=== PATIENT | male | born 1975 | race Caucasian/White ===

== ENCOUNTER 2018-05-31 19:18 | Emergency (ER) | payer OTHER, SELFPAY ==
[2018-05-31] VITALS (7 sets, daily range): BP systolic 114–138; BP diastolic 64–93; PULSE 63–77; RESP 13–24; O2SAT 95–100
--- NOTE | 2018-05-31 19:23 | DI.RAD.S_ITS ---
PROCEDURE: XR CHEST 1V INDICATIONS: chest pain TECHNIQUE: One view of the chest was acquired. COMPARISON: Located Within [facility], , CHEST 2 VIEW, 10/13/2015, 18:49. FINDINGS: Surgical changes and devices: None. Lungs and pleura: No pleural effusions or pneumothorax. There are slightly low lung volumes with linear bibasilar opacities likely representing atelectasis. Mediastinum: Mediastinal contours appear mildly prominent likely due to low volumes. Heart size is normal. Bones and chest wall: No suspicious bony lesions. Overlying soft tissues appear unremarkable. IMPRESSION: 1. Low lung volumes with probable basilar atelectasis and vascular crowding. No definite acute cardiopulmonary disease. Dictated by: Camron Augustine M.D. on 05/31/2018 at 19:52 Approved by: Camron Augustine M.D. on 05/31/2018 at 19:56
[2018-05-31] MEDS: ASPIRIN 81 MG TAB 324 MG PO (19:32)
--- NOTE | 2018-05-31 19:35 | ED.CHESTPAIN ---
HPI - Chest Pain General Chief Complaint: Chest Pain Stated Complaint: chest pain/tightness Time Seen by Provider: 05/31/18 19:20 Source: patient and family Mode of arrival: ambulatory Limitations: no limitations History of Present Illness HPI narrative: 42-year-old nonsmoking male presents with family and the chief complaint of a few weeks right-sided chest and abdominal pain. He denies any provocation or palliation of his symptoms and states they are episodic. He denies any nausea, vomiting or diarrhea. He denies any dizziness, weakness or lightheadedness but does state he has become fatigued over the past few weeks. He denies any change in his appetite or trouble with nausea, vomiting, or diarrhea. He denies recent travel, use of alcohol, or tylenol complaint: chest pain Onset (ago): week(s) Duration: intermittent Pain location: right chest Severity: mild Quality: sharp Pain radiation: none Relieving factors: nothing Exacerbating factors: nothing Treatments prior to arrival chest pain: none Related Data Allergies Allergy/AdvReac Type Severity Reaction Status Date / Time No Known Drug Allergies Allergy Verified 05/31/18 19:27 Review of Systems Review of Systems All systems reviewed & are unremarkable except as noted in HPI and below Constitutional Denies chills, Denies fever(s), Denies lethargy and Denies weakness Eyes Denies change in vision, Denies eye discharge, Denies irritation and Denies loss of vision ENT Ears, Nose, Mouth, and Throat: Denies change in voice, Denies neck pain and Denies sore throat Cardiovascular Reports chest pain, Denies irregular heart rhythm, Denies lightheadedness, Denies palpitations, Denies dyspnea, Denies dyspnea on exertion and Denies orthopnea Respiratory Denies cough, Denies dyspnea, Denies dyspnea on exertion and Denies wheezing Gastrointestinal Gastrointestinal: Reports abdominal pain, Denies change in bowel habits, Denies diarrhea, Denies nausea and Denies vomiting Genitourinary Denies hematuria, Denies flank pain, Denies urinary incontinence and Denies urinary urgency Musculoskeletal Denies neck pain Integumentary/Breasts Denies pruritus, Denies erythema, Denies rash and Denies wounds Neurologic Denies confusion, Denies loss of vision and Denies weakness Psychiatric Denies anxiety, Denies confusion, Denies depression, Denies homicidal ideation and Denies suicidal ideation Endocrine Denies palpitations Hematologic/Lymphatic Denies easy bruising Allergic/Immunologic Denies wheezing PFSH Social History Smoking Status: Never smoker alcohol intake: never Exam Narrative Exam Narrative: 42-year-old male resting comfo Initial Vital Signs Initial Vital Signs: Vital Signs Pulse Rate 71 05/31/18 19:27 Respiratory Rate 18 05/31/18 19:27 Blood Pressure 138/93 H 05/31/18 19:27 Pulse Oximetry 95 05/31/18 19:27 Const General: cooperative, well developed, in distress and anxious Nutritional Appearance: well nourished Orientation: alert, awake, oriented x3 and not confused [facility] Head: normocephalic and atraumatic Ears: external ears normal and TM's normal bilaterally Nose: external nose normal and No nasal discharge Face and sinus: sinuses nontender, face symmetric, no sinus tenderness and No dry mucous membranes Mouth: oral mucosae normal and moist mucous membranes Teeth and gingiva: dentition normal Throat: tonsils normal and uvula midline Eyes General: appearance normal, both eyes and all related structures Eyelids: eyelids normal Pupils: PERRL EOM: EOM intact bilaterally Neck Neck: normal visual inspection, trachea midline, No lymphadenopathy, No midline deformity and No JVD Lymphatic: No lymphedema Chest Chest: normal inspection of the chest Resp Effort & Inspection: normal respiratory effort, able to speak in complete sentences, no respiratory distress and no use of accessory muscles Auscultation: clear to auscultation bilaterally, no rales, no rhonchi and no wheezes Cardio Rate: regular rate Rhythm: regular rhythm Heart Sounds: no click, no gallops, no murmurs and no rubs Pulses: normal peripheral pulses GI Inspection: non-distended Palpation: soft, no hepatosplenomegaly, No guarding, No pulsatile mass and No tender Auscultation: normal bowel sounds Back/Spine/Pelvis Back: No CVA tenderness Cervical Spine: cervical ROM normal and No pain with cervical ROM Thoracic/Lumbar Spine: thoracic and lumbar spine normal to inspection Skin General: no rashes or lesions noted, No jaundice and No petechiae Extrem General: full ROM, no clubbing, cyanosis or edema, no pedal edema and no calf tenderness Scores HEART Score Heart Score history: Slightly Suspicious Heart Score EKG: Normal Heart Score Age: < 45 years old Heart Score risk factors: No known risk factors Heart Score troponin: < or = to normal limit Heart Score Total: 0 PERC Score Age greater than or equal to 50 years: No Heart rate greater than or equal to 100 bpm: No Room Air O2 Sat less than 95%: No Unilateral leg swelling: No Recent trauma or surgery: No Hemoptysis: No Prior PE or DVT: No Hormone Use: No Total PERC Score: 0 Wells' Criteria for PE Clinical signs and symptoms of PE: No PE is #1 Dx or equally likely: No Heart rate > 100: No Immobilization at least 3 days or surg in previous 4 weeks: No History of PE or DVT: No Hemoptysis: No Malignancy w/Treatment within 6 months or palliative: No Wells' PE Score total: 0 Course Orders Ordered: ED Orders 05/31/18 19:23 XR chest 1V Stat 05/31/18 19:25 Complete Blood Count AUTO DIFF Stat Comprehensive Metabolic Panel Stat Lipase Stat Partial Thromboplastin Time Stat Prothrombin Time INR Stat Troponin & CK Cardiac Panel Stat 05/31/18 19:29 EKG-12 Lead Stat 05/31/18 19:56 US abdomen complete Stat Discontinued Medications Aspirin (Aspirin Chew) 324 mg PO NOW ONE Stop: 05/31/18 19:24 Last Admin: 05/31/18 19:32 Dose: 324 mg Vital Signs - 8 hr 05/31/18 19:27 05/31/18 19:44 05/31/18 19:47 Pulse Rate 71 73 70 Respiratory Rate 18 13 21 Blood Pressure 138/93 H Blood Pressure [Left Arm] 130/93 H 130/93 H Pulse Oximetry 95 98 99 05/31/18 20:30 05/31/18 21:01 05/31/18 21:45 Pulse Rate 63 64 67 Respiratory Rate 14 21 19 Blood Pressure Blood Pressure [Left Arm] 132/82 114/77 116/83 Pulse Oximetry 98 98 95 05/31/18 22:24 Pulse Rate 77 Respiratory Rate 24 Blood Pressure Blood Pressure [Left Arm] 115/64 Pulse Oximetry 100 MDM - Chest Pain Differential Diagnosis Likely stable angina, unstable angina pectoris, atypical chest pain, st elevation myocardial infarction, costochondritis, chest pain and biliary colic Lab Data Attestation: I reviewed the patient's lab results. Result diagrams: 05/31/18 19:25 05/31/18 19:25 Lab Results 11/19/18 11/19/18 11/19/18 Range/Units 19:25 19:25 19:25 WBC 6.2 (4.5-11.0) X10^3/uL RBC 4.91 (4.5-5.9) X10^6/uL Hgb 14.7 (13.5-17.5) g/dL Hct 43.2 (41-53) % MCV 87.9 (80-100) fL MCH 30.0 (26-34) PG MCHC 34.1 (30-36) % RDW 15.0 H (11.6-14.8) % Plt Count 294 (150-400) X10^3/uL Neut % (Auto) 38.8 L (50-75) % Lymph % (Auto) 48.2 H (25-40) % [place] % (Auto) 9.2 (3-14) % Eos % (Auto) 2.9 (2-4) % Baso % (Auto) 0.9 (0-2) % Neut # (Auto) 2400 L (6049-5791) /uL PT 10.6 (10.1-12.7) SECONDS INR 1.0 (0.9-1.3) APTT 29 (26.4-36.2) SECONDS Sodium 146 H (137-145) mmol/L Potassium 4.3 (3.4-5.1) mmol/L Chloride 105 (98-107) mmol/L Carbon Dioxide 29 (22-32) mmol/L BUN 16 (9-20) mg/dL Creatinine 0.80 (0.66-1.25) mg/dL Estimated GFR > 60.0 (>60) mL/min BUN/Creatinine Ratio 20.0 (6-22) Glucose 100 (70-100) mg/dL Calcium 8.9 (8.4-10.2) mg/dL Total Bilirubin 0.5 (0.2-1.3) mg/dL AST 74 H (17-59) IU/L ALT 109 H (21-72) IU/L Alkaline Phosphatase 80 (38-126) U/L Total Creatine Kinase 122 (55-170) U/L CK-MB (CK-2) 1.13 (<2.37) ng/mL CK-MB (CK-2) Rel Index 0.9 L (1.5-5.0) % Troponin I < 0.012 (0.01-0.034) ng/mL Total Protein 7.3 (6.3-8.2) g/dL Albumin 4.4 (3.5-5.0) g/dL Globulin 2.9 (1.7-4.1) g/dL Albumin/Globulin Ratio 1.5 (1.0-2.8) Lipase 64 (23-300) U/L Urine Dip Bedside Urine Glucose Negative Bedside Urine Bilirubin - Negative Bedside Urine Ketone - Negative Bedside Urine Occult Blood - Negative Bedside Urine pH 6 Bedside Urine Protein - Negative Bedside Urine Urobilinogen +/- 1mg Bedside Urine Nitrite - Negative Bedside Urine Leukocytes - Negative Esterase Imaging Data Chest x-ray: Radiologist's impression: [address] [address] XRay Report Signed Patient: Luiz Greene#: [id number] : 1975Acct:[id number] Age/Sex: 42 / MDate of Service: 05/31/18 Loc: ED Accession Number: [id number] Procedure: XR chest 1V Ordering Provider: Jimbo Gastelum D.O. PROCEDURE: XR CHEST 1V INDICATIONS: chest pain TECHNIQUE: One view of the chest was acquired. COMPARISON: [facility], , CHEST 2 VIEW, 10/13/2015, 18:49. FINDINGS: Surgical changes and devices: None. Lungs and pleura: No pleural effusions or pneumothorax. There are slightly low lung volumes with linear bibasilar opacities likely representing atelectasis. Mediastinum: Mediastinal contours appear mildly prominent likely due to low volumes. Heart size is normal. Bones and chest wall: No suspicious bony lesions. Overlying soft tissues appear unremarkable. IMPRESSION: 1. Low lung volumes with probable basilar atelectasis and vascular crowding. No definite acute cardiopulmonary disease. Dictated by: Camron Augustine M.D. on 05/31/2018 at 19:52 US - abdomen: Radiologist's impression: [address] [address] Ultrasound Report Signed Patient: Luiz Greene#: [id number] : 1975Acct:[id number] Age/Sex: 42 / MDate of Service: 05/31/18 Loc: ED Accession Number: [id number] Procedure: US abdomen complete Ordering Provider: Jimbo Gastelum D.O. PROCEDURE: US ABDOMEN COMPLETE INDICATIONS: RIGHT UPPER QUADRANT PAIN; ELEVATED ENZYMES TECHNIQUE: Real-time scanning was performed of the abdominal and retroperitoneal organs, with image documentation. COMPARISON: [facility], CT, CT KUB, 02/06/2017, 15:11. FINDINGS: Liver: Liver demonstrates increased hepatic echogenicity consistent with fatty infiltration limiting evaluation for focal lesions. Gallbladder: No gallstones, gallbladder wall thickening, or pericholecystic fluid. Biliary ducts: Intrahepatic bile ducts are non-dilated. Extrahepatic bile duct caliber measures up to 5 mm. Normal is 6-7 mm or less in diameter, or 10 mm or less post-cholecystectomy. Pancreas: Not well-seen. Spleen: Spleen is normal in size and homogeneous in echotexture. Kidneys: Right kidney measures 10.7 cm long; left kidney measures 11.1 cm long. No hydronephrosis. Aorta: Visualized aorta is normal in caliber at less than 3 cm. Iliacs: Proximal common iliac arteries are normal in caliber at less than 2.5 cm. IVC: Intrahepatic inferior vena cava is patent. Miscellaneous: No free abdominal fluid. IMPRESSION: 1. Increased hepatic echogenicity compatible with steatosis. Dictated by: Camron Augustine M.D. on 05/31/2018 at 21:39 Approved by: Camron Augustine M.D. on 05/31/2018 at 21:51 MDM Narrative Medical decision making narrative: 42-year-old male with normal EKG and troponin as well as a nonischemic story presents with right-sided pain. His pain has no provocation, palliation or radiation. Mild bump in liver enzymes and some change ultrasound raise suspicion for liver as the etiology. Discharge Plan Departure Patient Disposition: Home Clinical Impression: Elevated transaminase level Discharge Date/Time: 05/31/18 22:59 Interventions: ED Discharge Assessment Last Done: 05/31/18 22:59 Instructions: Nonalcoholic Fatty Liver Disease Activity Restrictions/Additional Instructions: *You have been diagnosed with [ elevated liver enzymes, right upper quadrant pain] *What to do: *Continue to take medications as directed *Follow up with your primary care provider in 2-3 days, call for an appointment. Let them know you were seen in the Emergency Department and that we ask that you be seen in follow up *Return to ER if you should have any new, worsening or concerning symptoms
--- NOTE | 2018-05-31 19:42 | PC.NURSE ---
pt reports seeing his PCP a couple days ago and reports elevated liver enzymes. Pt stated he is frequently short of breath latley and not able to do his normal activities without dyspnea. pt reports ruq pain or tightness that is not reproducable. he states he went to his PCP for Kidney stone pain. He also states he has ongoing stiff painful neck. lymphnodes behind neck and under chin palpable. Pt reports having anxiety that exacerbates in stressfull situations causing a stutter. Pt currently presenting with a stutter.
[2018-05-31 19:47] LABS: Add Manual Diff / Slide Review NO; Basophils Percent Auto 0.9 % (0-2); Eosinophils Percent Auto 2.9 % (2-4); Hematocrit 43.2 % (41-53); Hemoglobin 14.7 g/dL (13.5-17.5); Lymphocytes Percent Auto 48.2 % (25-40); Mean Corpuscular HGB Conc 34.1 % (30-36); Mean Corpuscular Volume 87.9 fL (80-100); Monocytes Percent Auto 9.2 % (3-14); Neutrophils Absolute Auto 2400 /uL (3000-5900); Neutrophils Percent Auto 38.8 % (50-75); Platelet Count 294 X10^3/uL (150-400); Red Blood Cell Count 4.91 X10^6/uL (4.5-5.9); White Blood Cell Count 6.2 X10^3/uL (4.5-11.0)
[2018-05-31 19:50] LABS: Prothrombin Time 10.6 SECONDS (10.1-12.7)
[2018-05-31 19:52] LABS: PTT Partial Thromboplastin Tim 29 SECONDS (26.4-36.2)
[2018-05-31 19:53] LABS: Alanine Aminotransferase 109 IU/L (21-72); Albumin 4.4 g/dL (3.5-5.0); Albumin Globulin Ratio 1.5 (1.0-2.8); Alkaline Phosphatase 80 U/L (38-126); Aspartate Aminotransferase 74 IU/L (17-59); Bilirubin Total 0.5 mg/dL (0.2-1.3); Blood Urea Nitrogen 16 mg/dL (9-20); Calcium 8.9 mg/dL (8.4-10.2); Carbon Dioxide 29 mmol/L (22-32); Chloride 105 mmol/L (98-107); Creatine Kinase 122 U/L (55-170); Estimated Glomerular Filt Rate > 60.0 mL/min (>60); Globulin 2.9 g/dL (1.7-4.1); Glucose 100 mg/dL (70-100); HEMOLYSIS 50 (0-50); Lipase 64 U/L (23-300); Potassium 4.3 mmol/L (3.4-5.1); Sodium 146 mmol/L (137-145); Total Protein 7.3 g/dL (6.3-8.2)
--- NOTE | 2018-05-31 19:56 | DI.US.S_ITS ---
PROCEDURE: US ABDOMEN COMPLETE INDICATIONS: RIGHT UPPER QUADRANT PAIN; ELEVATED ENZYMES TECHNIQUE: Real-time scanning was performed of the abdominal and retroperitoneal organs, with image documentation. COMPARISON: [facility], CT, CT KUB, 02/06/2017, 15:11. FINDINGS: Liver: Liver demonstrates increased hepatic echogenicity consistent with fatty infiltration limiting evaluation for focal lesions. Gallbladder: No gallstones, gallbladder wall thickening, or pericholecystic fluid. Biliary ducts: Intrahepatic bile ducts are non-dilated. Extrahepatic bile duct caliber measures up to 5 mm. Normal is 6-7 mm or less in diameter, or 10 mm or less post-cholecystectomy. Pancreas: Not well-seen. Spleen: Spleen is normal in size and homogeneous in echotexture. Kidneys: Right kidney measures 10.7 cm long; left kidney measures 11.1 cm long. No hydronephrosis. Aorta: Visualized aorta is normal in caliber at less than 3 cm. Iliacs: Proximal common iliac arteries are normal in caliber at less than 2.5 cm. IVC: Intrahepatic inferior vena cava is patent. Miscellaneous: No free abdominal fluid. IMPRESSION: 1. Increased hepatic echogenicity compatible with steatosis. Dictated by: Camron Augustine M.D. on 05/31/2018 at 21:39 Approved by: Camron Augustine M.D. on 05/31/2018 at 21:51
[2018-05-31 20:05] LABS: Troponin I < 0.012 ng/mL (0.01-0.034)
[2018-05-31 20:20] LABS: CKMB % Relative Index 0.9 % (1.5-5.0); Creatine Kinase MB 1.13 ng/mL (<2.37)
--- NOTE | 2018-06-01 01:26 | ED_ITS ---
HPI - Chest Pain General Chief Complaint: Chest Pain Stated Complaint: chest pain/tightness Time Seen by Provider: 05/31/18 19:20 Source: patient and family Mode of arrival: ambulatory Limitations: no limitations History of Present Illness HPI narrative: 42-year-old nonsmoking male presents with family and the chief complaint of a few weeks right-sided chest and abdominal pain. He denies any provocation or palliation of his symptoms and states they are episodic. He denies any nausea, vomiting or diarrhea. He denies any dizziness, weakness or lightheadedness but does state he has become fatigued over the past few weeks. He denies any change in his appetite or trouble with nausea, vomiting, or diarrhea. He denies recent travel, use of alcohol, or tylenol complaint: chest pain Onset (ago): week(s) Duration: intermittent Pain location: right chest Severity: mild Quality: sharp Pain radiation: none Relieving factors: nothing Exacerbating factors: nothing Treatments prior to arrival chest pain: none Related Data Allergies Allergy/AdvReac Type Severity Reaction Status Date / Time No Known Drug Allergies Allergy Verified 05/31/18 19:27 Review of Systems Review of Systems All systems reviewed & are unremarkable except as noted in HPI and below Constitutional Denies chills, Denies fever(s), Denies lethargy and Denies weakness Eyes Denies change in vision, Denies eye discharge, Denies irritation and Denies loss of vision ENT Ears, Nose, Mouth, and Throat: Denies change in voice, Denies neck pain and Denies sore throat Cardiovascular Reports chest pain, Denies irregular heart rhythm, Denies lightheadedness, Denies palpitations, Denies dyspnea, Denies dyspnea on exertion and Denies orthopnea Respiratory Denies cough, Denies dyspnea, Denies dyspnea on exertion and Denies wheezing Gastrointestinal Gastrointestinal: Reports abdominal pain, Denies change in bowel habits, Denies diarrhea, Denies nausea and Denies vomiting Genitourinary Denies hematuria, Denies flank pain, Denies urinary incontinence and Denies urinary urgency Musculoskeletal Denies neck pain Integumentary/Breasts Denies pruritus, Denies erythema, Denies rash and Denies wounds Neurologic Denies confusion, Denies loss of vision and Denies weakness Psychiatric Denies anxiety, Denies confusion, Denies depression, Denies homicidal ideation and Denies suicidal ideation Endocrine Denies palpitations Hematologic/Lymphatic Denies easy bruising Allergic/Immunologic Denies wheezing PFSH Social History Smoking Status: Never smoker alcohol intake: never Exam Narrative Exam Narrative: 42-year-old male resting comfo Initial Vital Signs Initial Vital Signs: Vital Signs Pulse Rate 71 05/31/18 19:27 Respiratory Rate 18 05/31/18 19:27 Blood Pressure 138/93 H 05/31/18 19:27 Pulse Oximetry 95 05/31/18 19:27 Const General: cooperative, well developed, in distress and anxious Nutritional Appearance: well nourished Orientation: alert, awake, oriented x3 and not confused [facility] Head: normocephalic and atraumatic Ears: external ears normal and TM's normal bilaterally Nose: external nose normal and No nasal discharge Face and sinus: sinuses nontender, face symmetric, no sinus tenderness and No dry mucous membranes Mouth: oral mucosae normal and moist mucous membranes Teeth and gingiva: dentition normal Throat: tonsils normal and uvula midline Eyes General: appearance normal, both eyes and all related structures Eyelids: eyelids normal Pupils: PERRL EOM: EOM intact bilaterally Neck Neck: normal visual inspection, trachea midline, No lymphadenopathy, No midline deformity and No JVD Lymphatic: No lymphedema Chest Chest: normal inspection of the chest Resp Effort & Inspection: normal respiratory effort, able to speak in complete sentences, no respiratory distress and no use of accessory muscles Auscultation: clear to auscultation bilaterally, no rales, no rhonchi and no wheezes Cardio Rate: regular rate Rhythm: regular rhythm Heart Sounds: no click, no gallops, no murmurs and no rubs Pulses: normal peripheral pulses GI Inspection: non-distended Palpation: soft, no hepatosplenomegaly, No guarding, No pulsatile mass and No tender Auscultation: normal bowel sounds Back/Spine/Pelvis Back: No CVA tenderness Cervical Spine: cervical ROM normal and No pain with cervical ROM Thoracic/Lumbar Spine: thoracic and lumbar spine normal to inspection Skin General: no rashes or lesions noted, No jaundice and No petechiae Extrem General: full ROM, no clubbing, cyanosis or edema, no pedal edema and no calf tenderness Scores HEART Score Heart Score history: Slightly Suspicious Heart Score EKG: Normal Heart Score Age: < 45 years old Heart Score risk factors: No known risk factors Heart Score troponin: < or = to normal limit Heart Score Total: 0 PERC Score Age greater than or equal to 50 years: No Heart rate greater than or equal to 100 bpm: No Room Air O2 Sat less than 95%: No Unilateral leg swelling: No Recent trauma or surgery: No Hemoptysis: No Prior PE or DVT: No Hormone Use: No Total PERC Score: 0 Wells' Criteria for PE Clinical signs and symptoms of PE: No PE is #1 Dx or equally likely: No Heart rate > 100: No Immobilization at least 3 days or surg in previous 4 weeks: No History of PE or DVT: No Hemoptysis: No Malignancy w/Treatment within 6 months or palliative: No Wells' PE Score total: 0 Course Orders Ordered: ED Orders 05/31/18 19:23 XR chest 1V Stat 05/31/18 19:25 Complete Blood Count AUTO DIFF Stat Comprehensive Metabolic Panel Stat Lipase Stat Partial Thromboplastin Time Stat Prothrombin Time INR Stat Troponin & CK Cardiac Panel Stat 05/31/18 19:29 EKG-12 Lead Stat 05/31/18 19:56 US abdomen complete Stat Discontinued Medications Aspirin (Aspirin Chew) 324 mg PO NOW ONE Stop: 05/31/18 19:24 Last Admin: 05/31/18 19:32 Dose: 324 mg Vital Signs - 8 hr 05/31/18 19:27 05/31/18 19:44 05/31/18 19:47 Pulse Rate 71 73 70 Respiratory Rate 18 13 21 Blood Pressure 138/93 H Blood Pressure [Left Arm] 130/93 H 130/93 H Pulse Oximetry 95 98 99 05/31/18 20:30 05/31/18 21:01 05/31/18 21:45 Pulse Rate 63 64 67 Respiratory Rate 14 21 19 Blood Pressure Blood Pressure [Left Arm] 132/82 114/77 116/83 Pulse Oximetry 98 98 95 05/31/18 22:24 Pulse Rate 77 Respiratory Rate 24 Blood Pressure Blood Pressure [Left Arm] 115/64 Pulse Oximetry 100 MDM - Chest Pain Differential Diagnosis Likely stable angina, unstable angina pectoris, atypical chest pain, st elevation myocardial infarction, costochondritis, chest pain and biliary colic Lab Data Attestation: I reviewed the patient's lab results. Result diagrams: 05/31/18 19:25 05/31/18 19:25 Lab Results 11/19/18 11/19/18 11/19/18 Range/Units 19:25 19:25 19:25 WBC 6.2 (4.5-11.0) X10^3/uL RBC 4.91 (4.5-5.9) X10^6/uL Hgb 14.7 (13.5-17.5) g/dL Hct 43.2 (41-53) % MCV 87.9 (80-100) fL MCH 30.0 (26-34) PG MCHC 34.1 (30-36) % RDW 15.0 H (11.6-14.8) % Plt Count 294 (150-400) X10^3/uL Neut % (Auto) 38.8 L (50-75) % Lymph % (Auto) 48.2 H (25-40) % Oliver % (Auto) 9.2 (3-14) % Eos % (Auto) 2.9 (2-4) % Baso % (Auto) 0.9 (0-2) % Neut # (Auto) 2400 L (5996-3331) /uL PT 10.6 (10.1-12.7) SECONDS INR 1.0 (0.9-1.3) APTT 29 (26.4-36.2) SECONDS Sodium 146 H (137-145) mmol/L Potassium 4.3 (3.4-5.1) mmol/L Chloride 105 (98-107) mmol/L Carbon Dioxide 29 (22-32) mmol/L BUN 16 (9-20) mg/dL Creatinine 0.80 (0.66-1.25) mg/dL Estimated GFR > 60.0 (>60) mL/min BUN/Creatinine Ratio 20.0 (6-22) Glucose 100 (70-100) mg/dL Calcium 8.9 (8.4-10.2) mg/dL Total Bilirubin 0.5 (0.2-1.3) mg/dL AST 74 H (17-59) IU/L ALT 109 H (21-72) IU/L Alkaline Phosphatase 80 (38-126) U/L Total Creatine Kinase 122 (55-170) U/L CK-MB (CK-2) 1.13 (<2.37) ng/mL CK-MB (CK-2) Rel Index 0.9 L (1.5-5.0) % Troponin I < 0.012 (0.01-0.034) ng/mL Total Protein 7.3 (6.3-8.2) g/dL Albumin 4.4 (3.5-5.0) g/dL Globulin 2.9 (1.7-4.1) g/dL Albumin/Globulin Ratio 1.5 (1.0-2.8) Lipase 64 (23-300) U/L Urine Dip Bedside Urine Glucose Negative Bedside Urine Bilirubin - Negative Bedside Urine Ketone - Negative Bedside Urine Occult Blood - Negative Bedside Urine pH 6 Bedside Urine Protein - Negative Bedside Urine Urobilinogen +/- 1mg Bedside Urine Nitrite - Negative Bedside Urine Leukocytes - Negative Esterase Imaging Data Chest x-ray: Radiologist's impression: [address] [address] XRay Report Signed Patient: Luiz Greene#: [id number] : 1975Acct:[id number] Age/Sex: 42 / MDate of Service: 05/31/18 Loc: ED Accession Number: [id number] Procedure: XR chest 1V Ordering Provider: Jimbo Gastelum D.O. PROCEDURE: XR CHEST 1V INDICATIONS: chest pain TECHNIQUE: One view of the chest was acquired. COMPARISON: [facility], , CHEST 2 VIEW, 10/13/2015, 18:49. FINDINGS: Surgical changes and devices: None. Lungs and pleura: No pleural effusions or pneumothorax. There are slightly low lung volumes with linear bibasilar opacities likely representing atelectasis. Mediastinum: Mediastinal contours appear mildly prominent likely due to low volumes. Heart size is normal. Bones and chest wall: No suspicious bony lesions. Overlying soft tissues appear unremarkable. IMPRESSION: 1. Low lung volumes with probable basilar atelectasis and vascular crowding. No definite acute cardiopulmonary disease. Dictated by: Camron Augustine M.D. on 05/31/2018 at 19:52 US - abdomen: Radiologist's impression: [address] [address] Ultrasound Report Signed Patient: Luiz Greene#: [id number] : 1975Acct:[id number] Age/Sex: 42 / MDate of Service: 05/31/18 Loc: ED Accession Number: [id number] Procedure: US abdomen complete Ordering Provider: Jimbo Gastelum D.O. PROCEDURE: US ABDOMEN COMPLETE INDICATIONS: RIGHT UPPER QUADRANT PAIN; ELEVATED ENZYMES TECHNIQUE: Real-time scanning was performed of the abdominal and retroperitoneal organs, with image documentation. COMPARISON: [facility], CT, CT KUB, 02/06/2017, 15:11. FINDINGS: Liver: Liver demonstrates increased hepatic echogenicity consistent with fatty infiltration limiting evaluation for focal lesions. Gallbladder: No gallstones, gallbladder wall thickening, or pericholecystic fluid. Biliary ducts: Intrahepatic bile ducts are non-dilated. Extrahepatic bile duct caliber measures up to 5 mm. Normal is 6-7 mm or less in diameter, or 10 mm or less post-cholecystectomy. Pancreas: Not well-seen. Spleen: Spleen is normal in size and homogeneous in echotexture. Kidneys: Right kidney measures 10.7 cm long; left kidney measures 11.1 cm long. No hydronephrosis. Aorta: Visualized aorta is normal in caliber at less than 3 cm. Iliacs: Proximal common iliac arteries are normal in caliber at less than 2.5 cm. IVC: Intrahepatic inferior vena cava is patent. Miscellaneous: No free abdominal fluid. IMPRESSION: 1. Increased hepatic echogenicity compatible with steatosis. Dictated by: Camron Augustine M.D. on 05/31/2018 at 21:39 Approved by: Camron Augustine M.D. on 05/31/2018 at 21:51 MDM Narrative Medical decision making narrative: 42-year-old male with normal EKG and troponin as well as a nonischemic story presents with right-sided pain. His pain has no provocation, palliation or radiation. Mild bump in liver enzymes and some change ultrasound raise suspicion for liver as the etiology. Discharge Plan Departure Patient Disposition: Home Clinical Impression: Elevated transaminase level Discharge Date/Time: 05/31/18 22:59 Interventions: ED Discharge Assessment Last Done: 05/31/18 22:59 Instructions: Nonalcoholic Fatty Liver Disease Activity Restrictions/Additional Instructions: *You have been diagnosed with [ elevated liver enzymes, right upper quadrant pain] *What to do: *Continue to take medications as directed *Follow up with your primary care provider in 2-3 days, call for an appointment. Let them know you were seen in the Emergency Department and that we ask that you be seen in follow up *Return to ER if you should have any new, worsening or concerning symptoms
== END 2018-05-31 22:59 | disposition home or self-care (01) ==
PROVIDERS: Emergency Provider Emergency Medicine
DX: R74.0 Nonspecific elevation of levels of transaminase and lactic acid dehydrogenase [LDH] (principal); R07.89 Other chest pain
CPT/HCPCS: 36591; 71045; 76700; 80053; 81003; 82550; 82553; 83690; 84484; 85025; 85610; 85730; 93005; 99283; 99285

== ENCOUNTER 2019-05-29 15:44 | Emergency (ER) | payer OTHER, SELFPAY ==
[2019-05-29 16:19] VITALS: BP 145/86; PULSE 76; RESP 20; TEMP 36.7; O2SAT 99
[2019-05-29 16:41] LABS: RBC Urine None Seen (0-5/HPF)
[2019-05-29 16:42] LABS: Appearance Urine UA CLEAR; Bilirubin Urine UA NEGATIVE (NEGATIVE); Color Urine UA YELLOW; Glucose Urine UA NEGATIVE (Negative); Ketones Urine UA NEGATIVE (NEGATIVE); Leukocyte Esterase Urine UA NEGATIVE (NEGATIVE); Nitrite Urine UA NEGATIVE (Negative); Occult Blood Urine UA NEGATIVE (Negative); Protein Urine UA NEGATIVE (Negative); Urobilinogen Urine UA 0.2 E.U./dL (0.2)
[2019-05-29 16:52] LABS: Bacteria Urine Occasional (0-1); Culture Indicated Urine Cult Not Indicated; WBC Urine 0-1/HPF (0-5/HPF)
--- NOTE | 2019-05-29 18:13 | DI.US.S_ITS ---
PROCEDURE: US SCROTUM INDICATIONS: intermittent testicular pain, frequency, abd pain TECHNIQUE: Real-time scanning was performed of the scrotum and testicles, with image documentation. Color and pulse Doppler interrogation was performed of both testicles. COMPARISON: None. FINDINGS: Right: Testicle is normal in size at 4.6 x 2.7 x 3.3 cm, and homogenous in echotexture. Epididymis is normal in overall size and morphology. No hydrocele or varicoceles. Overlying scrotal skin is normal in thickness. Left: Testicle is normal in size at 5.1 by 2.9 x 3.3 cm, and homogeneous in echotexture. Epididymis is normal in overall size and morphology. No hydrocele or varicoceles. Overlying scrotal skin is normal in thickness. Doppler: Color and pulse Doppler demonstrate normal and symmetric arterial flow in both testicles. IMPRESSION: Normal scrotal ultrasound. Dictated by: Dana Burgess M.D. on 05/29/2019 at 19:07 Approved by: Dana Burgess M.D. on 05/29/2019 at 19:09
--- NOTE | 2019-05-29 18:16 | ED.ABDPAIN ---
HPI - Abdominal Pain General Chief Complaint: Abdominal Pain Stated Complaint: pain with urination and trouble with BM Time Seen by Provider: 05/29/19 17:59 Source: patient Mode of arrival: Ambulatory Limitations: no limitations History of Present Illness HPI narrative: 43-year-old male comes to the emergency department with multiple complaints. Patient has been complaining of dysuria, frequency and nocturia. He has occasionally had intermittent testicular pain on both sides. He has not noticed any hematuria has not noticed any discharge. He has not had any fevers or chills. He will occasionally have nausea in the morning but not regularly. He denies chest pain or shortness of breath. Patient states that he has felt constipated but when he has a bowel movement it is soft. He states it is a little bit painful there is occasionally a small amount of blood when he wipes. He states that there are hemorrhoids and he has been trying hemorrhoid cream that has not been helpful. He does have some abdominal and flank pain that is intermittent. He states it kind of feels like when he had kidney stones in the past. He states he does have some issues with memory he gets ECT therapy for depression and has difficulty remembering things and was concerned that this might be related to symptoms although he thinks it might also be from kidney stones or something else. Patient does take lithium for his mood. He takes several anti anxiety medications including atenolol. Related Data Allergies Allergy/AdvReac Type Severity Reaction Status Date / Time No Known Drug Allergies Allergy Verified 05/31/18 19:27 Review of Systems Review of Systems ROS Unobtainable: All systems reviewed & are unremarkable except as noted in HPI and below Constitutional Constitutional: Denies chills, Denies fever(s), Denies lethargy and Denies weakness Cardiovascular Cardiovascular: Denies chest pain, Denies irregular heart rhythm, Denies lightheadedness, Denies palpitations, Denies dyspnea, Denies dyspnea on exertion and Denies orthopnea Respiratory Respiratory: Denies chest congestion, Denies cough, Denies dyspnea, Denies dyspnea on exertion and Denies wheezing Gastrointestinal Gastrointestinal: Reports abdominal pain, Denies melena, Denies hematochezia, Denies change in bowel habits, Denies constipation, Reports heartburn (chronic, on omeprazole), Denies diarrhea, Reports loose stools, Reports nausea, Denies vomiting and Denies hematemesis Genitourinary Genitourinary: Denies hematuria, Denies difficulty urinating, Reports dysuria, Reports flank pain, Denies scrotal swelling, Denies testicular mass, Reports testicular pain (intermittent), Reports urinary frequency, Denies urinary incontinence and Reports urinary urgency Neurologic Neurologic: Denies weakness Endocrine Endocrine: Denies palpitations Allergic/Immunologic Allergic/Immunologic: Denies wheezing Patient History Medical History (Updated 05/29/19 @ 19:32 by Avani Blue DO) Anxiety (Acute) Appendicitis (Acute) Depression (Acute) GERD (gastroesophageal reflux disease) (Acute) Surgical History (Updated 05/29/19 @ 18:20 by Avani Blue DO) History of tonsillectomy (Acute) Social History (Updated 05/29/19 @ 18:21 by Avani Blue DO) marital status: Smoking Status: Never smoker alcohol intake: never Exam Narrative Exam Narrative: GENERAL: Alert and oriented x three, moderately obese male in no acute distress. HEENT: Head normocephalic, atraumatic, EOMI, pupils reactive, face symmetric, moist mucous membranes NECK: Supple, full range of motion CARDIOVASCULAR: Regular rate and rhythm without murmurs, rubs or gallops. RESPIRATORY: Breath sounds equal bilaterally, no wheezes rales or rhonchi. ABDOMEN: Soft, nontender. Normoactive bowel sounds all 4 quadrants. No guarding or rebound, rigidity, no mass : No CVA tenderness. Male: normal external examination, no penile discharge or lesions, testicles non-tender, cremasteric reflex intact, no inguinal hernias noted. EXTREMITIES: Normal range of motion, no clubbing or edema. Neurovascularly intact NEUROLOGICAL: Cranial nerves II through XII grossly intact. Moving all extremities SKIN: Warm, dry, no petechiae, no rashes or lesions. Initial Vital Signs Initial Vital Signs: Vital Signs Temperature 98.0 F 05/29/19 16:19 Pulse Rate 76 05/29/19 16:19 Respiratory Rate 20 05/29/19 16:19 Blood Pressure 145/86 H 05/29/19 16:19 Pulse Oximetry 99 05/29/19 16:19 Course Orders Ordered: ED Orders 05/29/19 16:26 Urinalysis and Microscopic Stat Urine Culture Stat 05/29/19 17:29 EKG-12 Lead Stat 05/29/19 18:13 US scrotum Stat 05/29/19 18:15 CT kidney ureter bladder (KUB) Stat 05/29/19 18:55 Complete Blood Count AUTO DIFF Stat Comprehensive Metabolic Panel Stat Lipase Stat [place] Stat Troponin & CK Cardiac Panel Stat Vital Signs Vital signs: Vital Signs - 8 hr 05/29/19 16:19 05/29/19 19:47 Temperature 98.0 F Pulse Rate 76 74 Respiratory Rate 20 14 Blood Pressure 145/86 H 145/82 H Pulse Oximetry 99 98 MDM - Abdominal Pain Lab Data Attestation: I reviewed the patient's lab results. Result diagrams: 05/29/19 18:55 05/29/19 18:55 Labs: Lab Results 05/29/19 05/29/19 05/29/19 Range/Units 16:26 18:55 18:55 WBC 7.8 (4.5-11.0) X10^3/uL RBC 5.10 (4.5-5.9) X10^6/uL Hgb 15.7 (13.5-17.5) g/dL Hct 45.4 (41-53) % MCV 89.1 (80-100) fL MCH 30.9 (26-34) PG MCHC 34.6 (30-36) % RDW 14.1 (11.6-14.8) % Plt Count 286 (150-400) X10^3/uL Neut % (Auto) 44.3 L (50-75) % Lymph % (Auto) 42.5 H (25-40) % [place] % (Auto) 8.8 (3-14) % Eos % (Auto) 3.3 (2-4) % Baso % (Auto) 1.1 (0-2) % Neut # (Auto) 3500 (0584-9677) /uL Lymph # (Auto) 3300 (7362-1152) /uL [place]lin # (Auto) 700 (0-900) /uL Eos # (Auto) 300 (0-450) /uL Baso # (Auto) 100 (0-100) /uL Sodium 140 (137-145) mmol/L Potassium 4.6 (3.4-5.1) mmol/L Chloride 101 (98-107) mmol/L Carbon Dioxide 30 (22-32) mmol/L BUN 17 (9-20) mg/dL Creatinine 0.90 (0.66-1.25) mg/dL Estimated GFR > 60.0 (>60) mL/min BUN/Creatinine Ratio 18.9 (6-22) Glucose 94 (70-100) mg/dL Calcium 10.0 (8.4-10.2) mg/dL Total Bilirubin 0.6 (0.2-1.3) mg/dL AST 45 (17-59) IU/L ALT 76 H (<50) IU/L Alkaline Phosphatase 81 (38-126) U/L Total Creatine Kinase 58 (55-170) U/L CK-MB (CK-2) TNP CK-MB (CK-2) Rel Index TNP Troponin I < 0.012 (0.01-0.034) ng/mL Total Protein 7.8 (6.3-8.2) g/dL Albumin 4.8 (3.5-5.0) g/dL Globulin 3.0 (1.7-4.1) g/dL Albumin/Globulin Ratio 1.6 (1.0-2.8) Lipase 66 (23-300) U/L Urine Color Yellow Urine Appearance Clear Urine pH 6.0 (4.5-8.0) Ur Specific [place] 1.010 (1.000-1.035) Urine Protein Negative (Negative) Urine Glucose (UA) Negative (Negative) g/dL Urine Ketones Negative (NEGATIVE) Urine Occult Blood Negative (Negative) Urine Nitrate Negative (Negative) Urine Bilirubin Negative (NEGATIVE) Urine Urobilinogen 0.2 (0.2) E.U./dL Ur Leukocyte Esterase Negative (NEGATIVE) Urine RBC None seen (0-5/HPF) Urine WBC 0-1/hpf (0-5/HPF) Urine Bacteria Occasional (0-1) (None) Ur Culture Indicated? Cult not indicated [place] (0.6-1.2) mmol/L 05/29/19 Range/Units 18:55 WBC (4.5-11.0) X10^3/uL RBC (4.5-5.9) X10^6/uL Hgb (13.5-17.5) g/dL Hct (41-53) % MCV (80-100) fL MCH (26-34) PG MCHC (30-36) % RDW (11.6-14.8) % Plt Count (150-400) X10^3/uL Neut % (Auto) (50-75) % Lymph % (Auto) (25-40) % [place] % (Auto) (3-14) % Eos % (Auto) (2-4) % Baso % (Auto) (0-2) % Neut # (Auto) (1686-6933) /uL Lymph # (Auto) (3310-2373) /uL [place] # (Auto) (0-900) /uL Eos # (Auto) (0-450) /uL Baso # (Auto) (0-100) /uL Sodium (137-145) mmol/L Potassium (3.4-5.1) mmol/L Chloride (98-107) mmol/L Carbon Dioxide (22-32) mmol/L BUN (9-20) mg/dL Creatinine (0.66-1.25) mg/dL Estimated GFR (>60) mL/min BUN/Creatinine Ratio (6-22) Glucose (70-100) mg/dL Calcium (8.4-10.2) mg/dL Total Bilirubin (0.2-1.3) mg/dL AST (17-59) IU/L ALT (<50) IU/L Alkaline Phosphatase (38-126) U/L Total Creatine Kinase (55-170) U/L CK-MB (CK-2) CK-MB (CK-2) Rel Index Troponin I (0.01-0.034) ng/mL Total Protein (6.3-8.2) g/dL Albumin (3.5-5.0) g/dL Globulin (1.7-4.1) g/dL Albumin/Globulin Ratio (1.0-2.8) Lipase (23-300) U/L Urine Color Urine Appearance Urine pH (4.5-8.0) Ur Specific [place] (1.000-1.035) Urine Protein (Negative) Urine Glucose (UA) (Negative) g/dL Urine Ketones (NEGATIVE) Urine Occult Blood (Negative) Urine Nitrate (Negative) Urine Bilirubin (NEGATIVE) Urine Urobilinogen (0.2) E.U./dL Ur Leukocyte Esterase (NEGATIVE) Urine RBC (0-5/HPF) Urine WBC (0-5/HPF) Urine Bacteria (None) Ur Culture Indicated? [place] 0.6 (0.6-1.2) mmol/L Imaging Data Scrotal ultrasound: Radiologist's impression: [address] [address] Ultrasound Report Signed Patient: Luiz Greene#: [id number] : 1975Acct:[id number] Age/Sex: 43 / MDate of Service: 05/29/19 Loc: ED Accession Number: [id number] Procedure: US scrotum Ordering Provider: Avani Blue D.O. PROCEDURE: US SCROTUM INDICATIONS: intermittent testicular pain, frequency, abd pain TECHNIQUE: Real-time scanning was performed of the scrotum and testicles, with image documentation. Color and pulse Doppler interrogation was performed of both testicles. COMPARISON: None. FINDINGS: Right: Testicle is normal in size at 4.6 x 2.7 x 3.3 cm, and homogenous in echotexture. Epididymis is normal in overall size and morphology. No hydrocele or varicoceles. Overlying scrotal skin is normal in thickness. Left: Testicle is normal in size at 5.1 by 2.9 x 3.3 cm, and homogeneous in echotexture. Epididymis is normal in overall size and morphology. No hydrocele or varicoceles. Overlying scrotal skin is normal in thickness. Doppler: Color and pulse Doppler demonstrate normal and symmetric arterial flow in both testicles. IMPRESSION: Normal scrotal ultrasound. Dictated by: Dana Burgess M.D. on 05/29/2019 at 19:07 Approved by: Dana Burgess M.D. on 05/29/2019 at 19:09 CT scan - abdomen: Radiologist's impression: Luiz Greene 43 M [address] [address] [address] Scan Report Signed Patient: Luiz Greene#: [id number] : 1975Acct:[id number] Age/Sex: 43 / MDate of Service: 05/29/19 Loc: ED Accession Number: [id number] Procedure: CT kidney ureter bladder (KUB) Ordering Provider: Avani Blue D.O. PROCEDURE: CT KIDNEY URETER BLADDER (KUB) INDICATIONS: abdominal pain, urinary s/s, issues w/ bm TECHNIQUE: Noncontrast 5 mm thick sections acquired from the diaphragms to the symphysis. 5 mm thick coronal and sagittal reformats were then performed. For radiation dose reduction, the following was used: automated exposure control, adjustment of mA and/or kV according to patient size. COMPARISON: [facility], CT, CT KUB, 02/06/2017, 15:11. FINDINGS: Image quality: Excellent. Lung bases: Lung bases are clear. Heart size is normal. Urinary system: Both kidneys are normal in size. Several punctate nonobstructing intrarenal calcifications bilaterally, at least 3 on the right and 4 on the left. No hydronephrosis or perinephric fat stranding. Both ureters appear non-dilated throughout their expected courses. Bladder wall thickness is normal; no calcified bladder stones. Other solid organs: Liver is normal in size. Mild diffuse hepatic parenchymal hypodensity. Gallbladder is partially decompressed. Pancreas is normal in contours. Spleen is normal in size. No adrenal nodules. Peritoneum and bowel: Unenhanced bowel loops demonstrate normal wall thickness and caliber. Right lower quadrant surgical clips of prior appendectomy. No free fluid or air. Nodes and vessels: A few nonenlarged retroperitoneal lymph nodes are present. No retroperitoneal or mesenteric adenopathy by size criteria. Aorta and inferior vena cava are normal in caliber. Abdominal wall: No ventral hernias. Pelvis: No free pelvic fluid. No inguinal hernias or adenopathy. Bones: No suspicious bony lesions. Bilateral L5 pars defects and grade one L5-S1 anterolisthesis. No vertebral body compression fractures. IMPRESSION: 1. No CT evidence of obstructive uropathy. 2. Several bilateral nonobstructing, very small intrarenal calcifications, minimally progressed in size compared to the prior study, fairly stable in number. 3. Mild hepatic steatosis, stable. Dictated by: Dana Burgess M.D. on 05/29/2019 at 18:33 Approved by: Dana Burgess M.D. on 05/29/2019 at 18:40 ECG Data Attestation: I personally reviewed and interpreted this ECG as follows: Prior ECG tracings: available for review Interpretation: Sinus rhythm rate of 63 P are 191 QRS of 98 QTC of 403. Patient does not have any appreciable ST changes. He has inverted T-wave in 3. Patient has prior EKG from 06/01/2018 which appears similar MDM Narrative Medical decision making narrative: Patient has multiple symptoms that are not associated with each other at all times he does not appreciate any specific event or episode that seems to bring them on. He also has been having some memory issues secondary to with CT which is a known side effect. Does not feel depressed or unsafe today but is concerned about his symptomatology. Urinalysis does not show a clear cause such as UTI. Plan for scrotal ultrasound, KUB and lab work. EKG appears similar to priors. Patient has been seen in the and had elevated transaminases as well as fatty liver. His labs show an ALT of 76. No other major lab changes, UA is negative. lithium level is normal. Um a imaging does not show any clear causes of his symptoms today including ultrasound and CT KUB. Discussed with placement plan to have a follow-up with primary care and patient feels comfortable with this plan. We discussed that he can also discussed with his providers for his ECT if any of his symptoms could be related although that that they could be entirely separate from his therapy. Discharge Plan Departure Patient Disposition: Home Clinical Impression: Hepatic steatosis, Abdominal pain Discharge Date/Time: 05/29/19 19:48 Instructions: DI for Abdominal Pain-Adult Activity Restrictions/Additional Instructions: Follow up with your primary care physician. Your urine was sent for urine culture if positive you should receive a phone call in 48-72 hours to contact you Continue your home medications as prescribed. Returns emergency room for fevers greater 100.4 F, new or rapidly worsening abdominal pain, flank pain, persistent vomiting, inability urinate, urinating blood, passing out, lightheadedness or other new or concerning symptoms.
[2019-05-29 19:04] LABS: Add Manual Diff / Slide Review NO; Basophils Absolute Auto 100 /uL (0-100); Basophils Percent Auto 1.1 % (0-2); Eosinophils Absolute Auto 300 /uL (0-450); Eosinophils Percent Auto 3.3 % (2-4); Hematocrit 45.4 % (41-53); Hemoglobin 15.7 g/dL (13.5-17.5); Lymphocytes Absolute Auto 3300 /uL (1100-4500); Lymphocytes Percent Auto 42.5 % (25-40); Mean Corpuscular HGB Conc 34.6 % (30-36); Mean Corpuscular Hemoglobin 30.9 PG (26-34); Mean Corpuscular Volume 89.1 fL (80-100); Monocytes Absolute Auto 700 /uL (0-900); Monocytes Percent Auto 8.8 % (3-14); Neutrophils Absolute Auto 3500 /uL (1500-7000); Neutrophils Percent Auto 44.3 % (50-75); Platelet Count 286 X10^3/uL (150-400); Red Cell Distribution Width 14.1 % (11.6-14.8); White Blood Cell Count 7.8 X10^3/uL (4.5-11.0)
[2019-05-29 19:15] LABS: Alanine Aminotransferase 76 IU/L (<50); Albumin 4.8 g/dL (3.5-5.0); Albumin Globulin Ratio 1.6 (1.0-2.8); Alkaline Phosphatase 81 U/L (38-126); Aspartate Aminotransferase 45 IU/L (17-59); BUN Creatinine Ratio 18.9 (6-22); Bilirubin Total 0.6 mg/dL (0.2-1.3); Blood Urea Nitrogen 17 mg/dL (9-20); Carbon Dioxide 30 mmol/L (22-32); Chloride 101 mmol/L (98-107); Creatine Kinase 58 U/L (55-170); Estimated Glomerular Filt Rate > 60.0 mL/min (>60); Glucose 94 mg/dL (70-100); HEMOLYSIS 22 (0-50); Lipase 66 U/L (23-300); Potassium 4.6 mmol/L (3.4-5.1); Sodium 140 mmol/L (137-145); Total Protein 7.8 g/dL (6.3-8.2)
[2019-05-29 19:19] LABS: Lithium 0.6 mmol/L (0.6-1.2)
[2019-05-29 19:27] LABS: Troponin I < 0.012 ng/mL (0.01-0.034)
[2019-05-29 19:47] VITALS: BP 145/82; PULSE 74; RESP 14; O2SAT 98
== END 2019-05-29 19:48 | disposition home or self-care (01) ==
PROVIDERS: Emergency Medicine; Emergency Provider Emergency Medicine
DX: N28.89 Other specified disorders of kidney and ureter (principal); R10.9 Unspecified abdominal pain; R79.89 Other specified abnormal findings of blood chemistry; N50.812 Left testicular pain; N50.811 Right testicular pain; R35.0 Frequency of micturition; R07.9 Chest pain, unspecified
CPT/HCPCS: 36415; 74176; 76870; 80053; 80178; 81001; 82550; 83690; 84484; 85025; 87086; 93005; 99282; 99285

== ENCOUNTER 2019-07-21 16:54 | Emergency (ER) | payer OTHER, SELFPAY ==
[2019-07-21 16:58] VITALS: BP 168/100; PULSE 68; RESP 20; TEMP 36.5; O2SAT 98; BMI 35.2
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
[2019-07-21 17:37] LABS: Add Manual Diff / Slide Review NO; Basophils Absolute Auto 100 /uL (0-100); Basophils Percent Auto 0.9 % (0-2); Eosinophils Absolute Auto 200 /uL (0-450); Eosinophils Percent Auto 2.6 % (2-4); Hemoglobin 15.4 g/dL (13.5-17.5); Lymphocytes Absolute Auto 2900 /uL (1100-4500); Lymphocytes Percent Auto 36.2 % (25-40); Mean Corpuscular HGB Conc 34.9 % (30-36); Mean Corpuscular Hemoglobin 31.3 PG (26-34); Mean Corpuscular Volume 89.6 fL (80-100); Monocytes Absolute Auto 600 /uL (0-900); Monocytes Percent Auto 7.3 % (3-14); Neutrophils Absolute Auto 4300 /uL (1500-7000); Platelet Count 327 X10^3/uL (150-400); Red Blood Cell Count 4.92 X10^6/uL (4.5-5.9); Red Cell Distribution Width 13.8 % (11.6-14.8); White Blood Cell Count 8.1 X10^3/uL (4.5-11.0)
[2019-07-21 17:56] LABS: Alanine Aminotransferase 113 IU/L (<50); Albumin 4.9 g/dL (3.5-5.0); Albumin Globulin Ratio 1.6 (1.0-2.8); Alkaline Phosphatase 87 U/L (38-126); Aspartate Aminotransferase 73 IU/L (17-59); BUN Creatinine Ratio 16.7 (6-22); Bilirubin Total 0.6 mg/dL (0.2-1.3); Blood Urea Nitrogen 15 mg/dL (9-20); Calcium 9.6 mg/dL (8.4-10.2); Carbon Dioxide 29 mmol/L (22-32); Chloride 101 mmol/L (98-107); Estimated Glomerular Filt Rate > 60.0 mL/min (>60); Ethanol (ETOH) < 10 mg/dL; Globulin 3.1 g/dL (1.7-4.1); Glucose 126 mg/dL (70-100); HEMOLYSIS 27 (0-50); Lipase 67 U/L (23-300); Potassium 3.9 mmol/L (3.4-5.1); Sodium 140 mmol/L (137-145)
[2019-07-21 18:30] VITALS: BP 130/87; PULSE 65
[2019-07-21 19:07] VITALS: BP 130/87; PULSE 63; RESP 18
== END 2019-07-21 19:21 | disposition home or self-care (01) ==
PROVIDERS: Emergency Provider Emergency Medicine
DX: S30.1XXA Contusion of abdominal wall, initial encounter (principal); S80.811A Abrasion, right lower leg, initial encounter; V80.018A Animal-rider injured by fall from or being thrown from other animal in noncollision accident, initial encounter
CPT/HCPCS: 36415; 71260; 74177; 80053; 80320; 81003; 83690; 85025; 86850; 86900; 86901; 93005; 99284; Q9967

== ENCOUNTER 2019-09-07 16:26 | Emergency (ER) | payer OTHER, SELFPAY ==
[2019-09-07 16:29] VITALS: BP 144/94; PULSE 67; RESP 18; TEMP 36.2; O2SAT 98
--- NOTE | 2019-09-07 16:40 | DI.CT.S_ITS ---
PROCEDURE: CT FACIAL BONES WO CON INDICATIONS: Trauma TECHNIQUE: Noncontrast 2.5 mm thick axial images acquired from the mandible through the frontal sinuses, with coronal and sagittal reformatting. For radiation dose reduction, the following was used: automated exposure control, adjustment of mA and/or kV according to patient size. COMPARISON: None. FINDINGS: Image quality: Excellent. Bones and teeth: Orbital orozco are intact. Sinus orozco show no fracture or deformity. Nasal bones and septum are intact. Visualized portions of the mandible demonstrate no fractures or subluxation. Zygomatic arches are intact. Pterygoid plates are intact. Visualized portions of the skull base and auditory canals are intact. Sinuses: Paranasal sinuses are aerated, without fluid levels, mucosal thickening, or mucoceles. Mastoid air cells are aerated. Soft tissues: No edema, masses, or fluid collections. No enlarged lymph nodes. No soft tissue lacerations or debris. Vascular: Visualized vascular structures appear normal in the absence of contrast. Bony vascular foramina and canals are intact. IMPRESSION: No acute facial fracture or soft tissue hematoma. Dictated by: Allyssa Gayle M.D. on 09/07/2019 at 17:14 Approved by: Allyssa Gayle M.D. on 09/07/2019 at 17:17
--- NOTE | 2019-09-07 16:40 | DI.CT.S_ITS ---
PROCEDURE: CT CERVICAL SPINE WO CON INDICATIONS: Trauma TECHNIQUE: Noncontrast 3 mm thick sections acquired from the skull base to the T4 level. Sagittal and coronal reformats were then constructed. For radiation dose reduction, the following was used: automated exposure control, adjustment of mA and/or kV according to patient size. COMPARISON: None. FINDINGS: Image quality: Excellent. Bones: No fractures or dislocations. Visualized superior ribs are intact. Soft tissues: Prevertebral soft tissues are normal in thickness. No paravertebral hematomas. No apical pneumothoraces. IMPRESSION: No acute cervical spine injury. Dictated by: Allyssa Gayle M.D. on 09/07/2019 at 17:26 Approved by: Allyssa Gayle M.D. on 09/07/2019 at 17:29
--- NOTE | 2019-09-07 16:40 | DI.RAD.S_ITS ---
PROCEDURE: XR CHEST 1V INDICATIONS: trauma TECHNIQUE: One view of the chest was acquired. COMPARISON: [facility], CR, XR CHEST 1V, 05/31/2018, 19:27. FINDINGS: Surgical changes and devices: None. Lungs and pleura: Lungs are clear. No pleural effusions or pneumothorax. Mediastinum: Mediastinal contours appear normal. Heart size is normal. Bones and chest wall: No suspicious bony lesions. Overlying soft tissues appear unremarkable. IMPRESSION: No acute cardiopulmonary findings. Dictated by: Allyssa Gayle M.D. on 09/07/2019 at 17:13 Approved by: Allyssa Gayle M.D. on 09/07/2019 at 17:13
--- NOTE | 2019-09-07 16:42 | DI.CT.S_ITS ---
PROCEDURE: CT HEAD/BRAIN WO CON INDICATIONS: trauma TECHNIQUE: Noncontrast 4.5 mm thick angled axial sections acquired from the foramen magnum to the vertex, with coronal and sagittal reformats. For radiation dose reduction, the following was used: automated exposure control, adjustment of mA and/or kV according to patient size. COMPARISON: None. FINDINGS: Image quality: Excellent. CSF spaces: Basal cisterns are patent. No extra-axial fluid collections. Ventricles are normal in size and shape. Brain: No midline shift. No intracranial masses or hemorrhage. Benavides-white matter interface is normal. Skull and face: Calvarium and visualized facial bones are intact, without suspicious lesions. Sinuses: Visualized sinuses and mastoids are clear. IMPRESSION: 1. No acute intracranial abnormalities. Dictated by: Mt Sanchez M.D. on 09/07/2019 at 17:06 Approved by: Mt Sanchez M.D. on 09/07/2019 at 17:10
--- NOTE | 2019-09-07 16:44 | DI.RAD.S_ITS ---
PROCEDURE: XR FOREARM RT 2V INDICATIONS: trauma, crush injury TECHNIQUE: 2 views of the forearm were acquired. COMPARISON: None. FINDINGS: Bones: No fractures or dislocations. No suspicious bony lesions. Soft tissues: No suspicious soft tissue calcifications or masses. Soft tissue swelling overlies the dorsum of the wrist. IMPRESSION: Dorsal soft tissue swelling. No underlying bony abnormality. If pain persists, followup imaging in 5-7 days is recommended to exclude occult fracture. Dictated by: Allyssa Gayle M.D. on 09/07/2019 at 17:13 Approved by: Allyssa Gayle M.D. on 09/07/2019 at 17:14
[2019-09-07 17:03] LABS: Add Manual Diff / Slide Review NO; Basophils Absolute Auto 100 /uL (0-100); Basophils Percent Auto 1.2 % (0-2); Eosinophils Absolute Auto 300 /uL (0-450); Eosinophils Percent Auto 3.3 % (2-4); Hematocrit 43.2 % (41-53); Lymphocytes Absolute Auto 3100 /uL (1100-4500); Lymphocytes Percent Auto 40.2 % (25-40); Mean Corpuscular HGB Conc 34.7 % (30-36); Mean Corpuscular Hemoglobin 30.2 PG (26-34); Mean Corpuscular Volume 87.2 fL (80-100); Monocytes Absolute Auto 600 /uL (0-900); Monocytes Percent Auto 7.9 % (3-14); Neutrophils Absolute Auto 3700 /uL (1500-7000); Neutrophils Percent Auto 47.4 % (50-75); Platelet Count 278 X10^3/uL (150-400); Red Blood Cell Count 4.96 X10^6/uL (4.5-5.9); White Blood Cell Count 7.8 X10^3/uL (4.5-11.0)
--- NOTE | 2019-09-07 17:13 | ED_ITS ---
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 Patient states that he had about 20 in tree that slid backwards past the tines on his tractor. He does not know if it hit him full force. He states he does not think he had loss of consciousness. He does have abrasion and pain of the nose and had nose bleed immediately afterwards. He also states that his arm which was on steering male and he has pain in his left forearm. Patient denies any neck pain, he denies any back pain. He states he felt dazed. He states he felt like his vision was a little blurred initially. He denies any facial bony pain otherwise besides his nose. No chest pain and no current shortness of breath. Patient denies any numbness or tingling in his extremities. He has some chronic low back pain but states this is not worse than normal. Patient is not on any blood thinners he states he takes medication for anxiety and depression. He denies any surgery besides tonsillectomy. Denies any allergies to medications. No tobacco, alcohol or illicit. He is accompanied by his significant other. Related Data Home Medications Medication Instructions Recorded Confirmed atenolol 50 mg PO DAILY 07/21/19 07/21/19 clonazepam 1 mg PO QAM 07/21/19 07/21/19 duloxetine 30 mg PO DAILY 07/21/19 07/21/19 duloxetine 60 mg PO DAILY 07/21/19 07/21/19 lithium carbonate 300 mg PO TID 07/21/19 omeprazole 20 mg PO DAILY 07/21/19 07/21/19 Previous Rx's Medication Instructions Recorded hydrocodone-acetaminophen 1 tab PO Q4-6H PRN #10 tab 07/21/19 ketorolac 10 mg PO Q6H PRN #14 tab 07/21/19 ondansetron 4 mg PO TID-QID PRN #10 tab 07/21/19 Allergies Allergy/AdvReac Type Severity Reaction Status Date / Time No Known Drug Allergies Allergy Verified 07/21/19 17:04 Review of Systems Review of Systems ROS Unobtainable: All systems reviewed & are unremarkable except as noted in HPI and below Patient History Medical History Anxiety (Acute) Appendicitis (Acute) Depression (Acute) GERD (gastroesophageal reflux disease) (Acute) Surgical History History of tonsillectomy (Acute) Social History marital status: Smoking Status: Never smoker alcohol intake: never Smoking Status: Never smoker Substance Use Type: does not use Exam Narrative Exam Narrative: GEN: CPatient appears in mild distress. HEAD: No evidence of trauma, no raccoon/De Paz sign. NECK: Nontender, painless range of motion, trachea midline Negative Nexus criteria, there is no mid line tenderness, distracting injury, altered mental status, neuro deficit, recent EtOH. EYES: PERRLA, EOMI ENT: Patient has a small abrasion on his nose, some mild swelling, trachea is midline, TM's are normal no hemotypanum, Nares shows dried blood inside the right Shell and left nares, no septal hematoma, no dental or oral injury, airway is normal and with normal occlusion, No bony tenderness on the face except the bridge of the nose. RESP: Chest is nontender and has symmetric movement, no ecchymosis, breath sounds are normal no crackles, wheezes or rales, no ecchymosis or skin changes CVS: Heart sounds are normal, no murmur noted, No JVD. ABG/GI: Nontender, soft, normal bowel sounds, no distention, no organomegaly, pelvic rock is negative NEURO: Oriented AOx3, neuro is grossly intact, sensation and motor is normal all 4 extremities moving, cranial nerves II through XII are intact, GCS is 15 PSYCH: Normal mood and affect SKIN: Intact other than described above, warm and dry, no crepitus and without decubitus BACK: No CVA tenderness, no vertebral tenderness, no step-off's, no crepitus EXT: Left wrist is tender with some mild swelling over the dorsum of the distal radius, patient has some mild abrasion, mild tenderness of the radius but not carpal bones or hand. Patient has slightly decreased flexion extension but otherwise normal range of motion of fingers. 2+ radial pulse. Normal sensation throughout with cap refill less than 2 seconds, hips are nontender, no pedal edema, normal color and temperature, normal range of motion of extremities with normal tendon exam, 2+ pulses in all four extremities Initial Vital Signs Initial Vital Signs: Vital Signs Temperature 97.1 F L 09/07/19 16:29 Pulse Rate 67 09/07/19 16:29 Respiratory Rate 18 09/07/19 16:29 Blood Pressure 144/94 H 09/07/19 16:29 Pulse Oximetry 98 09/07/19 16:29 Scores GCS Ole coma scale eye opening: Spontaneous Ole coma scale verbal response: Orientated [place] coma scale motor response: Obey commands [place] coma scale total score: 15 Course Orders Ordered: ED Orders 09/07/19 16:39 EKG-12 Lead Stat 09/07/19 16:40 CT cervical spine wo con Stat CT head/brain wo con Stat XR chest 1V Stat 09/07/19 16:42 CT facial bones wo con Stat 09/07/19 16:44 XR forearm LT 2V Stat 09/07/19 16:51 Complete Blood Count AUTO DIFF Stat Comprehensive Metabolic Panel Stat Ethanol (ETOH) Stat Lipase Stat Discontinued Medications Bacitracin (Bacitracin) 1 applic TOP NOW ONE Stop: 09/07/19 18:19 Last Admin: 09/07/19 18:23 Dose: 1 applic Documented by: JOLENE Diphtheria/Tetanus/Acell Pertussis (Adacel) 0.5 ml IM .ONCE ONE Stop: 09/07/19 17:14 Last Admin: 09/07/19 17:18 Dose: 0.5 ml Documented by: JOLENE Ketorolac Tromethamine (Toradol) 15 mg IV NOW ONE Stop: 09/07/19 17:43 Last Admin: 09/07/19 17:47 Dose: 15 mg Documented by: JOLENE Vital Signs Vital signs: Vital Signs - 8 hr 09/07/19 16:29 09/07/19 17:30 09/07/19 18:17 Temperature 97.1 F L Pulse Rate 67 68 66 Respiratory Rate 18 18 16 Blood Pressure 144/94 H Blood Pressure [Right Arm] 122/82 128/77 Pulse Oximetry 98 99 99 MDM - Head Injury Lab Data Attestation: I reviewed the patient's lab results. Result diagrams: 09/07/19 16:51 09/07/19 16:51 Labs: Lab Results 09/07/19 09/07/19 Range/Units 16:51 16:51 WBC 7.8 (4.5-11.0) X10^3/uL RBC 4.96 (4.5-5.9) X10^6/uL Hgb 15.0 (13.5-17.5) g/dL Hct 43.2 (41-53) % MCV 87.2 (80-100) fL MCH 30.2 (26-34) PG MCHC 34.7 (30-36) % RDW 14.0 (11.6-14.8) % Plt Count 278 (150-400) X10^3/uL Neut % (Auto) 47.4 L (50-75) % Lymph % (Auto) 40.2 H (25-40) % [place] % (Auto) 7.9 (3-14) % Eos % (Auto) 3.3 (2-4) % Baso % (Auto) 1.2 (0-2) % Neut # (Auto) 3700 (7495-1467) /uL Lymph # (Auto) 3100 (1697-9530) /uL [place] # (Auto) 600 (0-900) /uL Eos # (Auto) 300 (0-450) /uL Baso # (Auto) 100 (0-100) /uL Sodium 139 (137-145) mmol/L Potassium 4.2 (3.4-5.1) mmol/L Chloride 103 (98-107) mmol/L Carbon Dioxide 24 (22-32) mmol/L BUN 14 (9-20) mg/dL Creatinine 0.80 (0.66-1.25) mg/dL Estimated GFR > 60.0 (>60) mL/min BUN/Creatinine Ratio 17.5 (6-22) Glucose 110 H (70-100) mg/dL Calcium 9.7 (8.4-10.2) mg/dL Total Bilirubin 0.7 (0.2-1.3) mg/dL AST 79 H (17-59) IU/L ALT 139 H (<50) IU/L Alkaline Phosphatase 94 (38-126) U/L Total Protein 7.8 (6.3-8.2) g/dL Albumin 4.6 (3.5-5.0) g/dL Globulin 3.2 (1.7-4.1) g/dL Albumin/Globulin Ratio 1.4 (1.0-2.8) Lipase 57 (23-300) U/L Ethyl Alcohol < 10 ( - 10) mg/dL Imaging Data CT scan - head: Radiologist's Impression: [address] [address] [address] Scan Report Signed Patient: Luiz Greene#: [id number] : 1975Acct:[id number] Age/Sex: 44 / MDate of Service: 09/07/19 Loc: ED Accession Number: [id number] Procedure: CT facial bones wo con Ordering Provider: Avani Blue D.O. PROCEDURE: CT HEAD/BRAIN WO CON INDICATIONS: trauma TECHNIQUE: Noncontrast 4.5 mm thick angled axial sections acquired from the foramen magnum to the vertex, with coronal and sagittal reformats. For radiation dose reduction, the following was used: automated exposure control, adjustment of mA and/or kV according to patient size. COMPARISON: None. FINDINGS: Image quality: Excellent. CSF spaces: Basal cisterns are patent. No extra-axial fluid collections. Ventricles are normal in size and shape. Brain: No midline shift. No intracranial masses or hemorrhage. Benavides-white matter interface is normal. Skull and face: Calvarium and visualized facial bones are intact, without suspicious lesions. Sinuses: Visualized sinuses and mastoids are clear. IMPRESSION: 1. No acute intracranial abnormalities. Dictated by: Mt Sanchez M.D. on 09/07/2019 at 17:06 Approved by: Mt Sanchez M.D. on 09/07/2019 at 17:[address]: Radiologist's Impression: [address] [address] [address] Scan Report Signed Patient: Luiz Greene#: [id number] : 1975Acct:[id number] Age/Sex: 44 / MDate of Service: 09/07/19 Loc: ED Accession Number: [id number] Procedure: CT head/brain wo con Ordering Provider: Avani Blue D.O. PROCEDURE: CT FACIAL BONES WO CON INDICATIONS: Trauma TECHNIQUE: Noncontrast 2.5 mm thick axial images acquired from the mandible through the frontal sinuses, with coronal and sagittal reformatting. For radiation dose reduction, the following was used: automated exposure control, adjustment of mA and/or kV according to patient size. COMPARISON: None. FINDINGS: Image quality: Excellent. Bones and teeth: Orbital orozco are intact. Sinus orozco show no fracture or deformity. Nasal bones and septum are intact. Visualized portions of the mandible demonstrate no fractures or subluxation. Zygomatic arches are intact. Pterygoid plates are intact. Visualized portions of the skull base and auditory canals are intact. Sinuses: Paranasal sinuses are aerated, without fluid levels, mucosal thickening, or mucoceles. Mastoid air cells are aerated. Soft tissues: No edema, masses, or fluid collections. No enlarged lymph nodes. No soft tissue lacerations or debris. Vascular: Visualized vascular structures appear normal in the absence of contrast. Bony vascular foramina and canals are intact. IMPRESSION: No acute facial fracture or soft tissue hematoma. Dictated by: Allyssa Gayle M.D. on 09/07/2019 at 17:14 Approved by: Allyssa Gayle M.D. on 09/07/2019 at 17:[address] [facility] [address]: Radiologist's Impression: [place] [address] CT Scan Report Signed Patient: Luiz Greene#: [id number] : 1975Acct:[id number] Age/Sex: 44 / MDate of Service: 09/07/19 Loc: ED Accession Number: [id number] Procedure: CT cervical spine wo con Ordering Provider: Avani Blue D.O. PROCEDURE: CT CERVICAL SPINE WO CON INDICATIONS: Trauma TECHNIQUE: Noncontrast 3 mm thick sections acquired from the skull base to the T4 level. Sagittal and coronal reformats were then constructed. For radiation dose reduction, the following was used: automated exposure control, adjustment of mA and/or kV according to patient size. COMPARISON: None. FINDINGS: Image quality: Excellent. Bones: No fractures or dislocations. Visualized superior ribs are intact. Soft tissues: Prevertebral soft tissues are normal in thickness. No paravertebral hematomas. No apical pneumothoraces. IMPRESSION: No acute cervical spine injury. Dictated by: Allyssa Gayle M.D. on 09/07/2019 at 17:26 Approved by: Allyssa Gayle M.D. on 09/07/2019 at 17:29 Chest x-ray: Radiologist's Impression: Luiz Greene 44 M [address] [address] XRay Report Signed Patient: Luiz Greene#: [id number] : 1975Acct:[id number] Age/Sex: 44 / MDate of Service: 09/07/19 Loc: ED Accession Number: [id number] Procedure: XR chest 1V Ordering Provider: Avani Blue D.O. PROCEDURE: XR CHEST 1V INDICATIONS: trauma TECHNIQUE: One view of the chest was acquired. COMPARISON: [facility], , XR CHEST 1V, 05/31/2018, 19:27. FINDINGS: Surgical changes and devices: None. Lungs and pleura: Lungs are clear. No pleural effusions or pneumothorax. Mediastinum: Mediastinal contours appear normal. Heart size is normal. Bones and chest wall: No suspicious bony lesions. Overlying soft tissues appear unremarkable. IMPRESSION: No acute cardiopulmonary findings. Dictated by: Allyssa Gayle M.D. on 09/07/2019 at 17:13 Approved by: Allyssa Gayle M.D. on 09/07/2019 at 17:13 forearm xray: Radiologist's Impression: [address] [address] XRay Report Signed Patient: Luiz Greene#: [id number] : 1975Acct:[id number] Age/Sex: 44 / MDate of Service: 09/07/19 Loc: ED Accession Number: [id number] Procedure: XR forearm LT 2V Ordering Provider: Avani Blue D.O. PROCEDURE: XR FOREARM RT 2V INDICATIONS: trauma, crush injury TECHNIQUE: 2 views of the forearm were acquired. COMPARISON: None. FINDINGS: Bones: No fractures or dislocations. No suspicious bony lesions. Soft tissues: No suspicious soft tissue calcifications or masses. Soft tissue swelling overlies the dorsum of the wrist. IMPRESSION: Dorsal soft tissue swelling. No underlying bony abnormality. If pain persists, followup imaging in 5-7 days is recommended to exclude occult fracture. Dictated by: Allyssa Gayle M.D. on 09/07/2019 at 17:13 Approved by: Allyssa Gayle M.D. on 09/07/2019 at 17:14 ECG Data Attestation: I personally reviewed and interpreted this ECG as follows: Prior ECG tracings: available for review Interpretation: sinus rhythm, rate of 66, P are 174 QRS of 94 and QTC of 431. Tube inversion in but no other ST changes. Patient has prior from 07/21/2019 which appears similar MDM Narrative Medical decision making narrative: Patient's head CT, facial bones, C-spine, chest x-ray in 4 do not show any fractures. Swelling on the forearm x-ray. CBCs negative, coags are negative chemistries show an ALT of 139 and an AST of 79 which is consistent with priors no other renal function or electrolyte changes. Patient's etoh is negative. Tetanus was updated in the department. P atalbert was given wound care directions. Splint for his left forearm with return precautions. Discussed with patient if he is not having any improvement in 7-10 days or having worsening pain or other changes that he may need repeat imaging for occult fracture. I suspect patient had more of a glancing blow from the size of the log and his lack of bony injuries. Patient likely has a mild concussion he describes no loss of consciousness. Strict return precautions were given and patient was encouraged to be more safe in his activities as he has also had injuries from an interaction with a bull in the past. Discharge Plan Departure Patient Disposition: Home Clinical Impression: Abrasion of face Qualifiers: Encounter type: initial encounter Qualified Code(s): S00.81XA - Abrasion of other part of head, initial encounter Contusion of forearm Qualifiers: Encounter type: initial encounter Laterality: left Qualified Code(s): S50.12XA - Contusion of left forearm, initial encounter Discharge Date/Time: 09/07/19 18:31 Instructions: DI for Contusion Activity Restrictions/Additional Instructions: Follow-up in the next week if your symptoms have not resolved. If you do not have a primary care physician you may contact [phone] to help be set up for a physician. May take Tylenol and/or ibuprofen as needed for pain. You may use ice to the affected area as often as needed. Increase activity as tolerated. If you have sudden severe headaches, loss of vision, passing out, persistent vomiting, new neck pain, new numbness, tingling or weakness, chest pain or shortness of breath, nose bleeds that will not stop with direct pressure and several sprays of Afrin to each side return to the ER. Splint Care: Keep splint clean and dry. Elevated affected body part to decrease swelling. OK to use ice pack on the affected body part. Use for 15-20 minutes each time, for 5-6x per day. If you develop worsening pain, numbness, tingling, discoloration of the affected body part, loosen the splint by loosening the NYDIA wrap, and either see your doctor for an urgent re-assessment, or return to the Emergency Department. Return to the Emergency Department for any new or worsening symptoms. Prescriptions: No Action clonazepam 1 mg tablet 1 mg PO QAM RF: 0 lithium carbonate 300 mg capsule 300 mg PO TID RF: 0 omeprazole 20 mg capsule,delayed release(DR/EC) 20 mg PO DAILY RF: 0 atenolol 50 mg tablet 50 mg PO DAILY RF: 0 duloxetine 30 mg capsule,delayed release(DR/EC) 30 mg PO DAILY RF: 0 duloxetine 60 mg capsule,delayed release(DR/EC) 60 mg PO DAILY RF: 0 hydrocodone-acetaminophen 5-325 mg tablet 1 tab PO Q4-6H PRN (Reason: pain) Qty: 10 RF: 0 ketorolac 10 mg tablet 10 mg PO Q6H PRN (Reason: pain) Qty: 14 RF: 0 ondansetron 4 mg tablet,disintegrating 4 mg PO TID-QID PRN (Reason: nausea and vomiting) Qty: 10 RF: 0
[2019-09-07 17:15] LABS: Alanine Aminotransferase 139 IU/L (<50); Albumin 4.6 g/dL (3.5-5.0); Albumin Globulin Ratio 1.4 (1.0-2.8); Alkaline Phosphatase 94 U/L (38-126); Aspartate Aminotransferase 79 IU/L (17-59); BUN Creatinine Ratio 17.5 (6-22); Bilirubin Total 0.7 mg/dL (0.2-1.3); Blood Urea Nitrogen 14 mg/dL (9-20); Calcium 9.7 mg/dL (8.4-10.2); Carbon Dioxide 24 mmol/L (22-32); Chloride 103 mmol/L (98-107); Estimated Glomerular Filt Rate > 60.0 mL/min (>60); Ethanol (ETOH) < 10 mg/dL; Globulin 3.2 g/dL (1.7-4.1); Glucose 110 mg/dL (70-100); HEMOLYSIS < 15 (0-50); Lipase 57 U/L (23-300); Potassium 4.2 mmol/L (3.4-5.1); Sodium 139 mmol/L (137-145); Total Protein 7.8 g/dL (6.3-8.2)
[2019-09-07] MEDS: TET,DIPH,PERTUSS(ACELL),VAC/PF 0.5 ML SYRINGE IM (17:18)
[2019-09-07 17:30] VITALS: BP 122/82; PULSE 68; RESP 18; O2SAT 99
[2019-09-07] MEDS: KETOROLAC 60 MG/2 ML VIAL 15 MG IV (17:47)
[2019-09-07 18:17] VITALS: BP 128/77; PULSE 66; RESP 16; O2SAT 99
[2019-09-07] MEDS: BACITRACIN OINT 0.9 GM PCKT 1 APPLIC TOP (18:23)
== END 2019-09-07 18:31 | disposition home or self-care (01) ==
PROVIDERS: Emergency Provider Emergency Medicine
DX: S00.81XA Abrasion of other part of head, initial encounter (principal); S50.12XA Contusion of left forearm, initial encounter; Z23 Encounter for immunization; W22.8XXA Striking against or struck by other objects, initial encounter
CPT/HCPCS: 36415; 70450; 70486; 71045; 72125; 73090; 80053; 80320; 83690; 85025; 90471; 93005; 96374; 99285; 90715; J1885

== ENCOUNTER 2020-06-21 09:17 | Emergency (ER) | payer MEDICARE, OTHER, SELFPAY ==
[2020-06-21] VITALS (30 sets, daily range): BP systolic 99–137; BP diastolic 51–85; PULSE 58–76; RESP 15–25; TEMP 36.4; O2SAT 94–99; BMI 17.9
--- NOTE | 2020-06-21 09:32 | ED_ITS ---
HPI - General Adult General Chief complaint: Trauma Stated complaint: back/head/lt forearm injury today Time Seen by Provider: 06/21/20 09:27 Source: patient Mode of arrival: Ambulatory Limitations: no limitations History of Present Illness HPI narrative: Patient is a 44-year-old male here for evaluation of injuries that he sustained this morning. He states he was driving a tractor that had a front loading bucket on it. He states that he was going up a slight incline in the block it came off of the front mechanism falling back and hitting him on the head and then on the side and then landing on to the ground. He had no loss of consciousness. He states that he had an intense ?searing ?pain throughout his body after it happened. He sustained a abrasion to his head in a bruise to his right flank. He was ambulatory after the scene. He is not on anticoagulation. Modified trauma called secondary to mechanism Related Data Home Medications Medication Instructions Recorded Confirmed atenolol 50 mg PO DAILY 07/21/19 07/21/19 clonazepam 1 mg PO QAM 07/21/19 07/21/19 duloxetine 30 mg PO DAILY 07/21/19 07/21/19 duloxetine 60 mg PO DAILY 07/21/19 07/21/19 lithium carbonate 300 mg PO TID 07/21/19 omeprazole 20 mg PO DAILY 07/21/19 07/21/19 Previous Rx's Medication Instructions Recorded hydrocodone-acetaminophen 1 tab PO Q4-6H PRN #10 tab 07/21/19 ketorolac 10 mg PO Q6H PRN #14 tab 07/21/19 ondansetron 4 mg PO TID-QID PRN #10 tab 07/21/19 Allergies Allergy/AdvReac Type Severity Reaction Status Date / Time No Known Drug Allergies Allergy Verified 06/21/20 09:30 Review of Systems Constitutional Constitutional: Denies fatigue, Denies fever(s) and Reports headache(s) ENT Ears, Nose, Mouth, and Throat: Denies vertigo, Denies dizziness, Reports headache(s) and Denies disequilibrium Cardiovascular Cardiovascular: Denies chest pain and Denies dyspnea Respiratory Respiratory: Denies dyspnea Gastrointestinal Gastrointestinal: Denies abdominal pain Genitourinary Genitourinary: Denies dysuria Genitourinary: Denies dysuria Musculoskeletal Musculoskeletal: Reports back pain Integumentary/Breasts Comments: Abrasion to forehead, bruising to right side Neurologic Neurologic: Denies behavioral changes, Denies confusion, Denies vertigo, Denies dizziness, Reports headache(s) and Denies disequilibrium Psychiatric Psychiatric: Denies behavioral changes and Denies confusion Endocrine Endocrine: Denies fatigue Hematologic/Lymphatic Hematologic/Lymphatic: Denies easy bleeding and Denies easy bruising Allergic/Immunologic Allergic/Immunologic: Denies urticaria Patient History Medical History (Updated 06/21/20 @ 11:18 by Nigel Palafox DO) Anxiety Appendicitis Depression GERD (gastroesophageal reflux disease) Surgical History History of tonsillectomy Social History marital status: Smoking Status: Never smoker alcohol intake: never Smoking Status: Never smoker Substance Use Type: does not use Exam Initial Vital Signs Initial Vital Signs: Vital Signs Temperature 97.5 F L 06/21/20 09:21 Pulse Rate 61 06/21/20 09:21 Respiratory Rate 15 06/21/20 09:21 Blood Pressure 99/51 L 06/21/20 09:21 Pulse Oximetry 95 06/21/20 09:21 Const General: cooperative Limitations: mental status not altered HENFL Head: abrasion Nose: external nose normal Face and sinus: normal facial exam Chest Chest: No crepitus and No tenderness Resp Effort & Inspection: normal respiratory effort Auscultation: clear to auscultation bilaterally Cardio Rate: regular rate Rhythm: regular rhythm GI Inspection: non-distended Palpation: soft Back/Spine/Pelvis Cervical Spine: No cervical muscular tenderness, No cervical spinal tenderness and No step off deformity Thoracic/Lumbar Spine: No paraspinal tenderness, thoracic spinal tenderness and lumbar spinal tenderness Skin Other: Patient with a 5 cm x 8 cm abrasion to the top his head on the right. There is no active bleeding. Patient also with a palm size contusion to his right flank. Neuro General: patient alert, patient awake and patient oriented x3 Cognition: normal cognition Speech: speech normal Gait: normal gait Motor: muscle tone normal throughout Sensory Exam: no sensory deficits noted Extrem Other: Bilateral shoulders unremarkable. Bilateral elbows unremarkable although left elbow is somewhat limited in motion secondary to pain in his left forearm. Bilateral wrist unremarkable hands unremarkable. Pelvis stable. Lower extremities unremarkable. Knees ankles feet unremarkable. Psych Appearance: grossly normal and well kempt Scores GCS Ole coma scale eye opening: Spontaneous [place] coma scale verbal response: Orientated [place] coma scale motor response: Obey commands [place] coma scale total score: 15 Course Orders Ordered: ED Orders 06/21/20 09:32 CT chest abd pel w con Stat 06/21/20 09:33 CT cervical spine wo con Stat CT head/brain wo con Stat 06/21/20 09:43 Basic Metabolic Panel Stat Complete Blood Count AUTO DIFF Stat 06/21/20 10:23 XR forearm LT 2V Stat 06/21/20 11:45 COVID19 Stat Discontinued Medications Hydromorphone HCl (Hydromorphone 0.5 Mg Inj) 0.5 mg IV NOW ONE Stop: 06/21/20 12:27 Last Admin: 06/21/20 12:55 Dose: 0.5 mg Documented by: LOUISA Sodium Chloride (Normal Saline 0.9%) 1,000 mls @ 1,000 mls/hr IV BOLUS ONE Stop: 06/21/20 10:36 Last Infusion: 06/21/20 11:10 Dose: 0 mls/hr Documented by: Admin: 06/21/20 10:06 Dose: 1,000 mls/hr Documented by: LOUISA Morphine Sulfate (Morphine 4 Mg/Ml Inj) 4 mg IV NOW ONE Stop: 06/21/20 10:38 Last Admin: 06/21/20 10:39 Dose: 4 mg Documented by: RSTONE Morphine Sulfate (Morphine 4 Mg/Ml Inj) 4 mg IV NOW ONE Stop: 06/21/20 10:52 Last Admin: 06/21/20 11:10 Dose: 4 mg Documented by: BTONER Vital Signs Vital signs: Vital Signs - 8 hr 06/21/20 09:21 06/21/20 09:26 06/21/20 09:27 Temperature 97.5 F L Pulse Rate 61 58 L Respiratory Rate 15 Blood Pressure 99/51 L 99/51 L Pulse Oximetry 95 94 95 06/21/20 09:30 06/21/20 09:58 06/21/20 09:59 Temperature Pulse Rate 61 69 69 Respiratory Rate Blood Pressure 104/56 L 137/85 Pulse Oximetry 94 97 95 06/21/20 10:00 06/21/20 10:30 06/21/20 10:40 Temperature Pulse Rate 69 69 71 Respiratory Rate Blood Pressure 135/73 114/75 Pulse Oximetry 96 99 98 06/21/20 10:45 06/21/20 11:00 06/21/20 11:15 Temperature Pulse Rate 73 75 75 Respiratory Rate Blood Pressure 114/72 110/67 112/73 Pulse Oximetry 97 94 94 06/21/20 11:20 06/21/20 11:30 06/21/20 11:40 Temperature Pulse Rate 74 74 76 Respiratory Rate Blood Pressure 108/70 Pulse Oximetry 96 99 97 06/21/20 11:45 06/21/20 11:50 06/21/20 12:00 Temperature Pulse Rate 76 76 75 Respiratory Rate Blood Pressure 112/70 111/71 Pulse Oximetry 98 98 98 06/21/20 12:10 06/21/20 12:15 06/21/20 12:20 Temperature Pulse Rate 76 76 74 Respiratory Rate 24 25 H Blood Pressure 118/70 Pulse Oximetry 97 97 98 06/21/20 12:30 06/21/20 12:40 06/21/20 12:45 Temperature Pulse Rate 71 73 71 Respiratory Rate 20 20 23 Blood Pressure 107/63 104/63 Pulse Oximetry 98 97 97 06/21/20 12:50 Temperature Pulse Rate 71 Respiratory Rate 25 H Blood Pressure Pulse Oximetry 96 Medical Decision Making Lab Data Lab results reviewed: Yes I reviewed the patient's lab results. Result diagrams: 06/21/20 09:43 06/21/20 09:43 Labs: Lab Results 06/21/20 06/21/20 06/21/20 Range/Units 09:43 09:43 11:45 WBC 11.8 H (4.5-11.0) X10^3/uL RBC 5.21 (4.5-5.9) X10^6/uL Hgb 15.4 (13.5-17.5) g/dL Hct 47.0 (41-53) % MCV 90.2 (80-100) fL MCH 29.5 (26-34) PG MCHC 32.7 (30-36) % RDW 14.0 (11.6-14.8) % Plt Count 290 (150-400) X10^3/uL Neut % (Auto) 81.8 H (50-75) % Lymph % (Auto) 12.7 L (25-40) % Mckenzie % (Auto) 4.4 (3-14) % Eos % (Auto) 0.7 L (2-4) % Baso % (Auto) 0.4 (0-2) % Neut # (Auto) 9600 H (0949-7227) /uL Lymph # (Auto) 1500 (2576-4084) /uL Mckenzie # (Auto) 500 (0-900) /uL Eos # (Auto) 100 (0-450) /uL Baso # (Auto) 100 (0-100) /uL Sodium 138 (137-145) mmol/L Potassium 4.6 (3.4-5.1) mmol/L Chloride 104 (98-107) mmol/L Carbon Dioxide 30 (22-32) mmol/L BUN 18 (9-20) mg/dL Creatinine 1.39 H (0.66-1.25) mg/dL Estimated GFR 55.8 L (>60) mL/min BUN/Creatinine Ratio 12.9 (6-22) Glucose 169 H (70-100) mg/dL Calcium 9.4 (8.4-10.2) mg/dL COVID-19 PCR Negative (Negative) Imaging Data CT - cervical spine: Radiologist's Impression: [address] [id number] Scan ReportSigned Patient: Luiz Greene#: [id number]: 1975Acct:[id number]/Sex: 44 / MDate of Service: 06/21/20Loc: EDAccession Number: [id number] Procedure: CT cervical spine wo con Ordering Provider: Nigel Palafox D.O. PROCEDURE: CT CERVICAL SPINE WO CON INDICATIONS: Metal tractor bucket landed on top of head TECHNIQUE: Noncontrast 3 mm thick sections acquired from the skull base to the T4 level. Sagittal and coronal reformats were then constructed. For radiation dose reduction, the following was used: automated exposure control, adjustment of mA and/or kV according to patient size. COMPARISON: None. FINDINGS: Image quality: This examination is somewhat limited by quantum mottle artifact. Bones: No fractures or dislocations. Visualized superior ribs are intact. Soft tissues: Prevertebral soft tissues are normal in thickness. No paravertebral hematomas. No apical pneumothoraces. IMPRESSION: No fractures are seen. Dictated by: Heriberto Gutierrez M.D. on 06/21/2020 at 9:12 Approved by: Heriberto Gutierrez M.D. on 06/21/2020 at 9:14 CT scan - head: Radiologist's Impression: [address] [id number] Scan ReportSigned Patient: Luiz Greene#: [id number]: 1975Acct:[id number]/Sex: 44 / MDate of Service: 06/21/20Loc: EDAccession Number: [id number] Procedure: CT head/brain wo con Ordering Provider: Nigel Palafox D.O. PROCEDURE: CT HEAD/BRAIN WO CON INDICATIONS: Metal tractor bucket landed on top of head TECHNIQUE: Noncontrast 4.5 mm thick angled axial sections acquired from the foramen magnum to the vertex, with coronal and sagittal reformats. For radiation dose reduction, the following was used: automated exposure control, adjustment of mA and/or kV according to patient size. COMPARISON: [facility], CT, CT FACIAL BONES WO CON, 09/07/2019, 16:42. [facility], CT, CT CERVICAL SPINE WO CON, 06/21/2020, 9:36. [facility], CT, CT CHEST ABD PEL W CON, 06/21/2020, 9:36. [facility], CT, CT HEAD/BRAIN WO CON, 09/07/2019, 16:42. FINDINGS: Image quality: Streak artifact limits a few images. CSF spaces: Basal cisterns are patent. No extra-axial fluid collections. Ventricles are normal in size and shape. Brain: No midline shift. No intracranial masses or hemorrhage. Benavides-white matter interface is normal. Skull and face: Calvarium and visualized facial bones are intact, without suspicious lesions. Sinuses: Visualized sinuses and mastoids are clear. IMPRESSION: No acute intracranial hemorrhage is seen. No acute intracranial process is seen. No displaced calvarial fracture can be seen. Dictated by: Heriberto Gutierrez M.D. on 06/21/2020 at 9:14 Approved by: Heriberto Gutierrez M.D. on 06/21/2020 at 9:15 CT chest / abd/pelvis: Radiologist's Impression: [facility] [place] [id number] Scan ReportSigned Patient: Luiz Greene#: [id number]: 1975Acct:[id number]/Sex: 44 / MDate of Service: 06/21/20Loc: EDAccession Number: [id number] Procedure: CT chest abd pel w con Ordering Provider: Nigel Palafox D.O. PROCEDURE: CT CHEST ABD PEL W CON INDICATIONS: Metal tractor block at landed on top of head then on back TECHNIQUE: After the administration of intravenous contrast, 5 mm thick sections acquired from the lung apices to the symphysis. 2.5 mm thick coronal and sagittal reformats were acquired. Additional 7 mm thick coronal maximum intensity projection (MIP) reformats acquired through the lungs. Optional 10-minute delayed imaging may be performed from the kidneys to the bladder. For radiation dose reduction, the following was used: automated exposure control, adjustment of mA and/or kV according to patient size. COMPARISON: [facility], CT, CT KUB, 02/06/2017, 15:11. [facility], CT, CT KIDNEY URETER BLADDER (KUB), 05/29/2019, 18:20. [facility], CT, CT HEAD/BRAIN WO CON, 06/21/2020, 9:36. [facility], CT, CT CERVICAL SPINE WO CON, 06/21/2020, 9:36. [facility], CT, CT CHEST ABD PEL W CON, 07/21/2019, 17:35. FINDINGS: Image quality: Excellent. CHEST: Lungs: No pulmonary contusions or lacerations. No acute airspace opacities. Mild dependent atelectasis is seen. No pneumothorax or hemothorax. Central and peripheral airways appear patent and normal in caliber. Mediastinum: No mediastinal hematomas. Heart size is normal. No pericardial effusion. Thoracic aorta and pulmonary arteries demonstrate normal size and enhancement. No mediastinal or hilar adenopathy. Esophagus is normal in caliber. No hiatal hernia. Chest wall: No rib fractures. No subcutaneous emphysema. No axillary or supraclavicular adenopathy. Thyroid gland demonstrates no significant abnormality. ABDOMEN: Solid organs: Liver is normal in size and enhancement, without lacerations. Diffuse fatty liver infiltration is noted. Gallbladder wall is not thickened. Biliary system is non-dilated. Pancreas enhances normally, without transection. Spleen is n ormal in size and enhancement, without lacerations. No adrenal hematomas. Both kidneys enhance normally, without hydronephrosis or lacerations. Incidental note is again made of nonobstructing bilateral kidney stones, with the largest on the right measuring 6 mm and the largest on the left measuring 3 mm. Peritoneum and bowel: No free fluid or air. Unenhanced bowel loops demonstrate normal wall thickness and caliber. Right lower quadrant clips are seen. Please correlate with prior appendectomy. Nodes and vessels: No retroperitoneal or mesenteric adenopathy. Aorta and inferior vena cava are normal in size and enhancement. Miscellaneous: A mild periumbilical hernia is seen, containing fat. PELVIS: Genitourinary: Bladder wall thickness is normal. Miscellaneous: No inguinal hernias or adenopathy. Bones: Pelvic ring and hip joints appear intact. Anterior wedge deformities are seen with acute appearing fractures of the superior endplates at T11, T12, and L1. There is 10% loss of height at T12, 20% loss of height at T11, and approximately 35% loss of height at L1. There is a horizontally oriented fracture through the spinous process of T12. No significant posterior displacement of fracture fragments can be seen. These fractures are new compared to the prior CT dated 07/21/2019. Mild levoconvex scoliotic curvature is noted. Bridging endplate osteophytes are seen within the lower thoracic spine. At L5-S1, there is grade 1 anterolisthesis. Associated bilateral pars defects are seen. Moderate disc space narrowing and associated endplate irregularity and sclerosis can be seen at this level. IMPRESSION: Acute thoracolumbar junction compression deformities. There is also a T12 Chance fracture. Incidental note is made of: Dependent atelectasis Fatty liver infiltration Nonobstructing bilateral renal stones Fat containing periumbilical hernia L5 pars defects, with associated L5-S1 anterolisthesis and degenerative change Levoconvex scoliotic curvature Apparent appendectomy Dictated by: Heriberto Gutierrez M.D. on 06/21/2020 at 9:16 Approved by: Heriberto Gutierrez M.D. on 06/21/2020 at 9:24 Extremity x-ray #1: Radiologist's Impression: [facility] [place] [id number] ReportSigned Patient: Luiz GreeneMR#: [id number]: Acct:[id number]/Sex: 44 / MDate of Service: 06/21/20Loc: EDAccession Number: [id number] Procedure: XR forearm LT 2V Ordering Provider: Nigel Palafox D.O. PROCEDURE: XR FOREARM RT 2V INDICATIONS: Left forearm injury after getting hit with tractor bucket TECHNIQUE: 2 views of the forearm were acquired. COMPARISON: [facility], CR, XR FOREARM LT 2V, 09/07/2019, 16:40. FINDINGS: Bones: No fractures or dislocations. No suspicious bony lesions. Soft tissues: No suspicious soft tissue calcifications or masses. IMPRESSION: No evidence acute bony abnormality of the left forearm. Dictated by: Ramos Artis M.D. on 06/21/2020 at 11:35 Approved by: Ramos Artis M.D. on 06/21/2020 at 11:35 MDM Narrative Medical decision making narrative: Patient is alert oriented x3 and GCS of 15. The abrasion on his head and the contusion on his right flank in the abrasion on his left forearm need no intervention here in the ER. He is up-to-date on his tetanus. Head CT and cervical spine CT negative. CT scan of chest abdomen pelvis show new compression fractures T11-T12 and L1. T12 fracture being described as a Chance fracture. Given the unstable nature of this fracture I did contact Orthopedics. The orthopedic provider on-call consulted the [facility] legal document specialist in their group who stated that he recommended patient be transferred to [facility] for for further evaluation and treatment. Patient has been in spinal precautions since the diagnosis. He reports tingling down the back of his left lower extremity in to his foot but no other neurologic issues. Was given several doses of pain medication. Discussed the case with Dr. Bishop with the emergency department at [facility] who accepts the patient in transport. I did discuss the transport with the patient. He expressed understanding and agreement. Patient is currently stable for transport. Patient in the emergency department several hours after the decision to transport secondary to length of time needed for transport to arrival. Discharge Plan Departure Patient Disposition: [facility] Clinical Impression: Abrasion of scalp Qualifiers: Encounter type: initial encounter Qualified Code(s): S00.01XA - Abrasion of scalp, initial encounter Contusion of flank Qualifiers: Encounter type: initial encounter Qualified Code(s): S30.1XXA - Contusion of abdominal wall, initial encounter Compression fracture of T11 vertebra Qualifiers: Encounter type: initial encounter Qualified Code(s): S22.080A - Wedge compression fracture of T11-T12 vertebra, initial encounter for closed fracture T12 compression fracture Qualifiers: Encounter type: initial encounter Qualified Code(s): S22.080A - Wedge compression fracture of T11-T12 vertebra, initial encounter for closed fracture Compression fracture of L1 vertebra Qualifiers: Encounter type: initial encounter Qualified Code(s): S32.010A - Wedge compression fracture of first lumbar vertebra, initial encounter for closed fra cture Closed fracture of spinous process of thoracic vertebra Qualifiers: Encounter type: initial encounter Qualified Code(s): S22.008A - Other fracture of unspecified thoracic vertebra, initial encounter for closed fracture Contusion of forearm, left Qualifiers: Encounter type: initial encounter Qualified Code(s): S50.12XA - Contusion of left forearm, initial encounter Prescriptions: No Action clonazepam 1 mg tablet 1 mg PO QAM RF: 0 lithium carbonate 300 mg capsule 300 mg PO TID RF: 0 omeprazole 20 mg capsule,delayed release(DR/EC) 20 mg PO DAILY RF: 0 atenolol 50 mg tablet 50 mg PO DAILY RF: 0 duloxetine 30 mg capsule,delayed release(DR/EC) 30 mg PO DAILY RF: 0 duloxetine 60 mg capsule,delayed release(DR/EC) 60 mg PO DAILY RF: 0 hydrocodone-acetaminophen 5-325 mg tablet 1 tab PO Q4-6H PRN (Reason: pain) Qty: 10 RF: 0 ketorolac 10 mg tablet 10 mg PO Q6H PRN (Reason: pain) Qty: 14 RF: 0 ondansetron 4 mg tablet,disintegrating 4 mg PO TID-QID PRN (Reason: nausea and vomiting) Qty: 10 RF: 0
[2020-06-21 09:57] LABS: Add Manual Diff / Slide Review NO; Basophils Absolute Auto 100 /uL (0-100); Basophils Percent Auto 0.4 % (0-2); Eosinophils Absolute Auto 100 /uL (0-450); Eosinophils Percent Auto 0.7 % (2-4); Hemoglobin 15.4 g/dL (13.5-17.5); Lymphocytes Absolute Auto 1500 /uL (1100-4500); Lymphocytes Percent Auto 12.7 % (25-40); Mean Corpuscular HGB Conc 32.7 % (30-36); Mean Corpuscular Hemoglobin 29.5 PG (26-34); Mean Corpuscular Volume 90.2 fL (80-100); Monocytes Absolute Auto 500 /uL (0-900); Monocytes Percent Auto 4.4 % (3-14); Neutrophils Absolute Auto 9600 /uL (1500-7000); Neutrophils Percent Auto 81.8 % (50-75); Platelet Count 290 X10^3/uL (150-400); Red Blood Cell Count 5.21 X10^6/uL (4.5-5.9); White Blood Cell Count 11.8 X10^3/uL (4.5-11.0)
[2020-06-21] MEDS: SODIUM CHLORIDE 0.9% 1,000 ML 1000 ML IV (10:06)
[2020-06-21 10:13] LABS: BUN Creatinine Ratio 12.9 (6-22); Blood Urea Nitrogen 18 mg/dL (9-20); Calcium 9.4 mg/dL (8.4-10.2); Carbon Dioxide 30 mmol/L (22-32); Chloride 104 mmol/L (98-107); Estimated Glomerular Filt Rate 55.8 mL/min (>60); Glucose 169 mg/dL (70-100); HEMOLYSIS < 15 (0-50); Potassium 4.6 mmol/L (3.4-5.1); Sodium 138 mmol/L (137-145)
--- NOTE | 2020-06-21 10:23 | DI.RAD.S_ITS ---
PROCEDURE: XR FOREARM RT 2V INDICATIONS: Left forearm injury after getting hit with tractor bucket TECHNIQUE: 2 views of the forearm were acquired. COMPARISON: [facility], CR, XR FOREARM LT 2V, 09/07/2019, 16:40. FINDINGS: Bones: No fractures or dislocations. No suspicious bony lesions. Soft tissues: No suspicious soft tissue calcifications or masses. IMPRESSION: No evidence acute bony abnormality of the left forearm. Dictated by: Ramos Artis M.D. on 06/21/2020 at 11:35 Approved by: Ramos Artis M.D. on 06/21/2020 at 11:35
[2020-06-21] MEDS: MORPHINE 4 MG/ML INJ IV ×2 (10:39→11:10)
[2020-06-21 12:11] LABS: COVID19 -Nasal RAPID Negative (Negative)
[2020-06-21] MEDS: HYDROMORPHONE 0.5 MG INJ IV (12:55)
== END 2020-06-21 14:13 | disposition short-term general hospital (02) ==
PROVIDERS: Emergency Provider Emergency Medicine
DX: S22.080A Wedge compression fracture of T11-T12 vertebra, initial encounter for closed fracture (principal); S32.010A Wedge compression fracture of first lumbar vertebra, initial encounter for closed fracture; S22.008A Other fracture of unspecified thoracic vertebra, initial encounter for closed fracture; S00.01XA Abrasion of scalp, initial encounter; S30.1XXA Contusion of abdominal wall, initial encounter; S50.12XA Contusion of left forearm, initial encounter; R51.9 Headache, unspecified; M54.9 Dorsalgia, unspecified; W31.89XA Contact with other specified machinery, initial encounter
CPT/HCPCS: 36415; 70450; 71260; 72125; 73090; 74177; 80048; 85025; 87635; 96361; 96374; 96375; 96376; 99285; J1170; J2270; Q9967

== ENCOUNTER 2020-08-04 21:18 | Emergency (ER) | payer MEDICARE, OTHER, SELFPAY ==
[2020-08-04] VITALS (7 sets, daily range): BP systolic 114–140; BP diastolic 67–86; PULSE 68–84; RESP 12–21; TEMP 36.8; O2SAT 97–100; BMI 31.5
[2020-08-04 21:54] LABS: Add Manual Diff / Slide Review NO; Basophils Absolute Auto 100 /uL (0-100); Basophils Percent Auto 1.2 % (0-2); Eosinophils Absolute Auto 200 /uL (0-450); Eosinophils Percent Auto 2.9 % (2-4); Hemoglobin 13.8 g/dL (13.5-17.5); Lymphocytes Absolute Auto 2800 /uL (1100-4500); Lymphocytes Percent Auto 34.1 % (25-40); Mean Corpuscular HGB Conc 32.2 % (30-36); Mean Corpuscular Volume 86.9 fL (80-100); Monocytes Absolute Auto 600 /uL (0-900); Monocytes Percent Auto 7.6 % (3-14); Neutrophils Absolute Auto 4400 /uL (1500-7000); Neutrophils Percent Auto 54.2 % (50-75); Platelet Count 325 X10^3/uL (150-400); Red Blood Cell Count 4.95 X10^6/uL (4.5-5.9); Red Cell Distribution Width 13.9 % (11.6-14.8); White Blood Cell Count 8.1 X10^3/uL (4.5-11.0)
[2020-08-04 21:55] LABS: Ur Creatinine Normal (Normal); Ur Specific Gravity Normal (Normal); Urine pH Normal (Normal)
[2020-08-04 21:56] LABS: UR Morphine/Opiate cutoff 300 Negative (Negative); Urine Amphetamines Negative (Negative); Urine Barbiturates Negative (Negative); Urine Benzodiazepines Negative (Negative); Urine Cocaine Negative (Negative); Urine MDMA Negative (Negative); Urine Methadone Negative (Negative); Urine Methamphetamines Negative (Negative); Urine Oxycodone Negative (Negative); Urine Phencyclidine Negative (Negative); Urine Tetrahydrocannabinol Negative (Negative); Urine Tricyclic Antidepressant Negative (Negative)
[2020-08-04 22:00] LABS: Alanine Aminotransferase 19 IU/L (<50); Albumin 4.6 g/dL (3.5-5.0); Albumin Globulin Ratio 1.6 (1.0-2.8); Alkaline Phosphatase 112 U/L (38-126); Aspartate Aminotransferase 23 IU/L (17-59); BUN Creatinine Ratio 14.9 (6-22); Bilirubin Total 0.3 mg/dL (0.2-1.3); Blood Urea Nitrogen 11 mg/dL (9-20); Calcium 9.5 mg/dL (8.4-10.2); Carbon Dioxide 28 mmol/L (22-32); Chloride 107 mmol/L (98-107); Estimated Glomerular Filt Rate > 60.0 mL/min (>60); Ethanol (ETOH) 66 mg/dL; Globulin 2.9 g/dL (1.7-4.1); Glucose 81 mg/dL (70-100); HEMOLYSIS < 15 (0-50); Potassium 3.6 mmol/L (3.4-5.1); Sodium 141 mmol/L (137-145); Total Protein 7.5 g/dL (6.3-8.2)
--- NOTE | 2020-08-04 22:05 | ED_ITS ---
HPI - Psych <Linda Tierney MD - Last Filed: 08/06/20 00:11> General Chief Complaint: Psychiatric Symptoms Stated Complaint: Mental Health Evaluation Time Seen by Provider: 08/04/20 21:36 Source: patient and EMS Mode of arrival: EMS History of Present Illness HPI Narrative: 44-year-old gentleman with a history of depression currently under significant stressors with his marriage in the process of ending. Lisa garzatly police were called after his confronted him about not returning calls to his daughter and he became increasingly distraught and took a ?handful? of oxycodone, estimates are between 6 and 8 but total dose is unclear. This is in the setting of mild alcohol use this evening as well. The is concerned because he has been increasingly depressed and did have a suicide attempt in 2016. Related Data Home Medications Medication Instructions Recorded Confirmed atenolol 50 mg PO DAILY 07/21/19 07/21/19 clonazepam 1 mg PO QAM 07/21/19 07/21/19 duloxetine 30 mg PO DAILY 07/21/19 07/21/19 duloxetine 60 mg PO DAILY 07/21/19 07/21/19 lithium carbonate 300 mg PO TID 07/21/19 omeprazole 20 mg PO DAILY 07/21/19 07/21/19 Previous Rx's Medication Instructions Recorded hydrocodone-acetaminophen 1 tab PO Q4-6H PRN #10 tab 07/21/19 ketorolac 10 mg PO Q6H PRN #14 tab 07/21/19 ondansetron 4 mg PO TID-QID PRN #10 tab 07/21/19 Allergies Allergy/AdvReac Type Severity Reaction Status Date / Time No Known Drug Allergies Allergy Verified 06/21/20 09:30 Review of Systems <Linda Tierney MD - Last Filed: 08/06/20 00:11> Review of Systems Narrative: Too somnolent for meaningful review of systems Patient History <Linda Tierney MD - Last Filed: 08/06/20 00:11> Medical History (Updated 08/05/20 @ 11:35 by Avani Blue DO) Anxiety Appendicitis Depression GERD (gastroesophageal reflux disease) Surgical History History of tonsillectomy Social History marital status: Smoking Status: Current every day smoker alcohol intake: never Smoking Status: Current every day smoker tobacco type: cigarettes alcohol intake frequency: holidays/special occasions only Alcohol type: hard liquor Substance Use Type: does not use Exam <Linda Tierney MD - Last Filed: 08/06/20 00:11> Narrative Exam Narrative: General: Healthy appearing, very somnolent but maintaining airway HEENT: Moist mucous membranes, normal sclera with reactive pupils, Neck: No JVD, supple Respiratory: Lungs are clear to auscultation, no wheezing no rales no rhonchi. Full and symmetrical air movement Cardiac: Regular rate and rhythm no murmurs no bruits Abdomen: Soft, nontender, good bowel tones, no flank pain Skin: Warm and dry, no rashes Neurologic: Grossly neurologically intact with no obvious asymmetries or abnormalities Extremities: No trauma, well perfused Psych: Excessively somnolent Initial Vital Signs Initial Vital Signs: Vital Signs Temperature 98.3 F 08/04/20 21:25 Pulse Rate 84 08/04/20 21:25 Respiratory Rate 16 08/04/20 21:25 Blood Pressure 140/77 08/04/20 21:25 Pulse Oximetry 100 08/04/20 21:25 <Avani Bleu DO - Last Filed: 08/05/20 18:50> Initial Vital Signs Initial Vital Signs: Vital Signs Temperature 98.3 F 08/04/20 21:25 Pulse Rate 84 08/04/20 21:25 Respiratory Rate 16 08/04/20 21:25 Blood Pressure 140/77 08/04/20 21:25 Pulse Oximetry 100 08/04/20 21:25 Course <Linda Tierney MD - Last Filed: 08/06/20 00:11> Orders Ordered: ED Orders 08/04/20 21:31 Urine Drug Screen, Rapid Stat 08/04/20 21:38 Complete Blood Count AUTO DIFF Stat Comprehensive Metabolic Panel Stat Ethanol (ETOH) Stat Thyroid Stimulating Hormone Stat Vital Signs Vital signs: Vital Signs - 8 hr 08/05/20 11:00 08/05/20 11:30 Pulse Rate 72 62 Respiratory Rate 18 12 Blood Pressure 136/91 H 129/80 Pulse Oximetry 100 98 <Avani Blue DO - Last Filed: 08/05/20 18:50> Orders Ordered: ED Orders 08/04/20 21:31 Urine Drug Screen, Rapid Stat 08/04/20 21:38 Complete Blood Count AUTO DIFF Stat Comprehensive Metabolic Panel Stat Ethanol (ETOH) Stat Thyroid Stimulating Hormone Stat Reevaluation(s) Reevaluation #1: Patient isgned out to myself by Dr. Tierney. Patient is sleeping until recently. Patient is now awake, alert and appropriate. States he was drinking and had the intention to harm himself and took a handful of oxycodone. He is unsure exactly how many. He denies any intent to harm himself and does not wish harm himself at this time. Time: 07:57 Reevaluation #2: Patient was seen by social work, also seen by myself. He states that it was somewhat of an impulsive decision while he was drinking alcohol. He states his has the narcotic pain pills and that she will keep them in her possession. He does feel safe to return home at this time. Patient was offered respite bed if he would like but defers this. Patient is alert, appropriate and appears compentent and appropriate to make decisions and does not endorse suicidal ideation/intent. Patient contacted his adult daughter who will be his ride. He can also stay with his parents for the next several days to give some additional distance between him and his . Time: 11:35 Vital Signs Vital signs: Vital Signs - 8 hr 08/05/20 11:00 08/05/20 11:30 Pulse Rate 72 62 Respiratory Rate 18 12 Blood Pressure 136/91 H 129/80 Pulse Oximetry 100 98 [facility] - Psych <Linda Tierney MD - Last Filed: 08/06/20 00:11> Medical Records Attestation: I reviewed the patient's medical records. Lab Data Attestation: I reviewed the patient's lab results. Result diagrams: 08/04/20 21:38 08/04/20 21:38 Labs: Lab Results 08/04/20 08/04/20 08/04/20 Range/Units 21:31 21:38 21:38 WBC 8.1 (4.5-11.0) X10^3/uL RBC 4.95 (4.5-5.9) X10^6/uL Hgb 13.8 (13.5-17.5) g/dL Hct 43.0 (41-53) % MCV 86.9 (80-100) fL MCH 28.0 (26-34) PG MCHC 32.2 (30-36) % RDW 13.9 (11.6-14.8) % Plt Count 325 (150-400) X10^3/uL Neut % (Auto) 54.2 (50-75) % Lymph % (Auto) 34.1 (25-40) % [place] % (Auto) 7.6 (3-14) % Eos % (Auto) 2.9 (2-4) % Baso % (Auto) 1.2 (0-2) % Neut # (Auto) 4400 (4028-2490) /uL Lymph # (Auto) 2800 (4759-9254) /uL [place] # (Auto) 600 (0-900) /uL Eos # (Auto) 200 (0-450) /uL Baso # (Auto) 100 (0-100) /uL Sodium 141 (137-145) mmol/L Potassium 3.6 (3.4-5.1) mmol/L Chloride 107 (98-107) mmol/L Carbon Dioxide 28 (22-32) mmol/L BUN 11 (9-20) mg/dL Creatinine 0.74 (0.66-1.25) mg/dL Estimated GFR > 60.0 (>60) mL/min BUN/Creatinine Ratio 14.9 (6-22) Glucose 81 (70-100) mg/dL Calcium 9.5 (8.4-10.2) mg/dL Total Bilirubin 0.3 (0.2-1.3) mg/dL AST 23 (17-59) IU/L ALT 19 (<50) IU/L Alkaline Phosphatase 112 (38-126) U/L Total Protein 7.5 (6.3-8.2) g/dL Albumin 4.6 (3.5-5.0) g/dL Globulin 2.9 (1.7-4.1) g/dL Albumin/Globulin Ratio 1.6 (1.0-2.8) TSH (0.47-4.68) uIU/mL U Opiates 300ng/mL cut Negative (Negative) Ur Oxycodone Screen Negative (Negative) Urine Methadone Screen Negative (Negative) Ur Barbiturates Screen Negative (Negative) U Tricyclic Antidepress Negative (Negative) Ur Phencyclidine Scrn Negative (Negative) Ur Amphetamines Screen Negative (Negative) U Methamphetamines Scrn Negative (Negative) Ur MDMA Scrn (Ecstasy) Negative (Negative) U Benzodiazepines Scrn Negative (Negative) Urine Cocaine Screen Negative (Negative) U Marijuana (THC) Screen Negative (Negative) Ethyl Alcohol 66 H ( - 10) mg/dL 08/04/20 Range/Units 21:38 WBC (4.5-11.0) X10^3/uL RBC (4.5-5.9) X10^6/uL Hgb (13.5-17.5) g/dL Hct (41-53) % MCV (80-100) fL MCH (26-34) PG MCHC (30-36) % RDW (11.6-14.8) % Plt Count (150-400) X10^3/uL Neut % (Auto) (50-75) % Lymph % (Auto) (25-40) % [place] % (Auto) (3-14) % Eos % (Auto) (2-4) % Baso % (Auto) (0-2) % Neut # (Auto) (7879-8678) /uL Lymph # (Auto) (4608-6731) /uL [place] # (Auto) (0-900) /uL Eos # (Auto) (0-450) /uL Baso # (Auto) (0-100) /uL Sodium (137-145) mmol/L Potassium (3.4-5.1) mmol/L Chloride (98-107) mmol/L Carbon Dioxide (22-32) mmol/L BUN (9-20) mg/dL Creatinine (0.66-1.25) mg/dL Estimated GFR (>60) mL/min BUN/Creatinine Ratio (6-22) Glucose (70-100) mg/dL Calcium (8.4-10.2) mg/dL Total Bilirubin (0.2-1.3) mg/dL AST (17-59) IU/L ALT (<50) IU/L Alkaline Phosphatase (38-126) U/L Total Protein (6.3-8.2) g/dL Albumin (3.5-5.0) g/dL Globulin (1.7-4.1) g/dL Albumin/Globulin Ratio (1.0-2.8) TSH 1.29 (0.47-4.68) uIU/mL U Opiates 300ng/mL cut (Negative) Ur Oxycodone Screen (Negative) Urine Methadone Screen (Negative) Ur Barbiturates Screen (Negative) U Tricyclic Antidepress (Negative) Ur Phencyclidine Scrn (Negative) Ur Amphetamines Screen (Negative) U Methamphetamines Scrn (Negative) Ur MDMA Scrn (Ecstasy) (Negative) U Benzodiazepines Scrn (Negative) Urine Cocaine Screen (Negative) U Marijuana (THC) Screen (Negative) Ethyl Alcohol ( - 10) mg/dL Urine Dip Bedside Urine Glucose Negative Bedside Urine Bilirubin - Negative Bedside Urine Ketone - Negative Urine Specific [place]er 1.020 Bedside Urine Occult Blood - Negative Bedside Urine pH 6 Bedside Urine Protein - Negative Bedside Urine Urobilinogen - Negative Bedside Urine Nitrite - Negative Bedside Urine Leukocytes - Negative Esterase MDM Narrative Medical decision making narrative: 44-year-old gentleman with a history of prior suicidal attempt with increasing situational disturbance regarding marital issues and an acute verbal altercation this evening. He was slightly intoxicated with alcohol level at only 66 but did take a significant dose of narcotic. Total dose is unclear but it is in a and that he is somnolent needing 2 L of oxygen. He is otherwise maintaining respiratory rate and airway. Will out him to metabolize overnight and will need social work consult in the morning. <Avani Blue, DO - Last Filed: 08/05/20 18:50> Lab Data Labs: Lab Results 08/04/20 08/04/20 08/04/20 Range/Units 21:31 21:38 21:38 WBC 8.1 (4.5-11.0) X10^3/uL RBC 4.95 (4.5-5.9) X10^6/uL Hgb 13.8 (13.5-17.5) g/dL Hct 43.0 (41-53) % MCV 86.9 (80-100) fL MCH 28.0 (26-34) PG MCHC 32.2 (30-36) % RDW 13.9 (11.6-14.8) % Plt Count 325 (150-400) X10^3/uL Neut % (Auto) 54.2 (50-75) % Lymph % (Auto) 34.1 (25-40) % [place] % (Auto) 7.6 (3-14) % Eos % (Auto) 2.9 (2-4) % Baso % (Auto) 1.2 (0-2) % Neut # (Auto) 4400 (7746-2082) /uL Lymph # (Auto) 2800 (9326-1215) /uL [place] # (Auto) 600 (0-900) /uL Eos # (Auto) 200 (0-450) /uL Baso # (Auto) 100 (0-100) /uL Sodium 141 (137-145) mmol/L Potassium 3.6 (3.4-5.1) mmol/L Chloride 107 (98-107) mmol/L Carbon Dioxide 28 (22-32) mmol/L BUN 11 (9-20) mg/dL Creatinine 0.74 (0.66-1.25) mg/dL Estimated GFR > 60.0 (>60) mL/min BUN/Creatinine Ratio 14.9 (6-22) Glucose 81 (70-100) mg/dL Calcium 9.5 (8.4-10.2) mg/dL Total Bilirubin 0.3 (0.2-1.3) mg/dL AST 23 (17-59) IU/L ALT 19 (<50) IU/L Alkaline Phosphatase 112 (38-126) U/L Total Protein 7.5 (6.3-8.2) g/dL Albumin 4.6 (3.5-5.0) g/dL Globulin 2.9 (1.7-4.1) g/dL Albumin/Globulin Ratio 1.6 (1.0-2.8) TSH (0.47-4.68) uIU/mL U Opiates 300ng/mL cut Negative (Negative) Ur Oxycodone Screen Negative (Negative) Urine Methadone Screen Negative (Negative) Ur Barbiturates Screen Negative (Negative) U Tricyclic Antidepress Negative (Negative) Ur Phencyclidine Scrn Negative (Negative) Ur Amphetamines Screen Negative (Negative) U Methamphetamines Scrn Negative (Negative) Ur MDMA Scrn (Ecstasy) Negative (Negative) U Benzodiazepines Scrn Negative (Negative) Urine Cocaine Screen Negative (Negative) U Marijuana (THC) Screen Negative (Negative) Ethyl Alcohol 66 H ( - 10) mg/dL 08/04/20 Range/Units 21:38 WBC (4.5-11.0) X10^3/uL RBC (4.5-5.9) X10^6/uL Hgb (13.5-17.5) g/dL Hct (41-53) % MCV (80-100) fL MCH (26-34) PG MCHC (30-36) % RDW (11.6-14.8) % Plt Count (150-400) X10^3/uL Neut % (Auto) (50-75) % Lymph % (Auto) (25-40) % [place] % (Auto) (3-14) % Eos % (Auto) (2-4) % Baso % (Auto) (0-2) % Neut # (Auto) (8727-5111) /uL Lymph # (Auto) (1466-4486) /uL [place] # (Auto) (0-900) /uL Eos # (Auto) (0-450) /uL Baso # (Auto) (0-100) /uL Sodium (137-145) mmol/L Potassium (3.4-5.1) mmol/L Chloride (98-107) mmol/L Carbon Dioxide (22-32) mmol/L BUN (9-20) mg/dL Creatinine (0.66-1.25) mg/dL Estimated GFR (>60) mL/min BUN/Creatinine Ratio (6-22) Glucose (70-100) mg/dL Calcium (8.4-10.2) mg/dL Total Bilirubin (0.2-1.3) mg/dL AST (17-59) IU/L ALT (<50) IU/L Alkaline Phosphatase (38-126) U/L Total Protein (6.3-8.2) g/dL Albumin (3.5-5.0) g/dL Globulin (1.7-4.1) g/dL Albumin/Globulin Ratio (1.0-2.8) TSH 1.29 (0.47-4.68) uIU/mL U Opiates 300ng/mL cut (Negative) Ur Oxycodone Screen (Negative) Urine Methadone Screen (Negative) Ur Barbiturates Screen (Negative) U Tricyclic Antidepress (Negative) Ur Phencyclidine Scrn (Negative) Ur Amphetamines Screen (Negative) U Methamphetamines Scrn (Negative) Ur MDMA Scrn (Ecstasy) (Negative) U Benzodiazepines Scrn (Negative) Urine Cocaine Screen (Negative) U Marijuana (THC) Screen (Negative) Ethyl Alcohol ( - 10) mg/dL Urine Dip Bedside Urine Glucose Negative Bedside Urine Bilirubin - Negative Bedside Urine Ketone - Negative Urine Specific [place] 1.020 Bedside Urine Occult Blood - Negative Bedside Urine pH 6 Bedside Urine Protein - Negative Bedside Urine Urobilinogen - Negative Bedside Urine Nitrite - Negative Bedside Urine Leukocytes - Negative Esterase Discharge Plan Departure Patient Disposition: Home Clinical Impression: Alcohol intoxication, Overdose Instructions: Alcohol and Stress: There are Safer Ways to [place] Activity Restrictions/Additional Instructions: Follow-up with your psychiatrist Dr. Fischer. I would recommend returning to a monthly appointment. I do recommend alcohol cessation at this time. Return to the emergency department if you feel unsafe, if you have thoughts of harming yourself or others, if you feel that you need any assistance, or other concerns. If you feel you need to go to [facility]. This is also an option if you need to find a safe place to stay for the short term. Call had of time ([phone]) to inquire about an available bed. If there are no beds called daily and 9 AM and 9 PM to check on bed availability. If you're feeling suicidal or having suicidal thoughts, contact the suicide hotline (this number is also the referral for services such as counseling and you can call it to set up help). . Prescriptions: No Action clonazepam 1 mg tablet 1 mg PO QAM RF: 0 lithium carbonate 300 mg capsule 300 mg PO TID RF: 0 omeprazole 20 mg capsule,delayed release(DR/EC) 20 mg PO DAILY RF: 0 atenolol 50 mg tablet 50 mg PO DAILY RF: 0 duloxetine 30 mg capsule,delayed release(DR/EC) 30 mg PO DAILY RF: 0 duloxetine 60 mg capsule,delayed release(DR/EC) 60 mg PO DAILY RF: 0 hydrocodone-acetaminophen 5-325 mg tablet 1 tab PO Q4-6H PRN (Reason: pain) Qty: 10 RF: 0 ketorolac 10 mg tablet 10 mg PO Q6H PRN (Reason: pain) Qty: 14 RF: 0 ondansetron 4 mg tablet,disintegrating 4 mg PO TID-QID PRN (Reason: nausea and vomiting) Qty: 10 RF: 0 Referrals: Óscar Fischer DO [Non-Staff] -
--- NOTE | 2020-08-04 22:19 | PC.NURSE ---
Pt moved from Rm 13 to Rm 06 for better visual monitoring by staff
[2020-08-04 22:52] LABS: Thyroid Stimulating Hormone 1.29 uIU/mL (0.47-4.68)
--- NOTE | 2020-08-04 22:56 | PC.NURSE ---
Pt's spo2 dropped to 87% while sleeping. When told to take a deep breath sats increased to 97% but dropped again to again. Pt reports having history of sleep apnea.
[2020-08-05] VITALS (26 sets, daily range): BP systolic 106–136; BP diastolic 70–98; PULSE 52–72; RESP 6–18; O2SAT 94–100
--- NOTE | 2020-08-05 00:35 | PC.NURSE ---
Pt has phone call in
--- NOTE | 2020-08-05 01:03 | PC.NURSE ---
Pt resting on gurney,eyes closed, chest rising and falling
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
== END 2020-08-05 12:34 | disposition home or self-care (01) ==
PROVIDERS: Emergency Medicine; Emergency Provider Emergency Medicine
DX: F10.129 Alcohol abuse with intoxication, unspecified (principal); Y90.3 Blood alcohol level of 60-79 mg/100 ml; T40.2X1A Poisoning by other opioids, accidental (unintentional), initial encounter; K21.9 Gastro-esophageal reflux disease without esophagitis
CPT/HCPCS: 36415; 80053; 80305; 80320; 81003; 84443; 85025; 99284

== ENCOUNTER → 2021-01-10 17:15 | Outpatient (CLI) | payer MEDICARE, OTHER, SELFPAY ==
--- NOTE | 2021-01-10 | DI.MRI.S_ITS ---
PROCEDURE: MR LOWER LEG RT WO CON INDICATIONS: strain of achilles tendon TECHNIQUE: Noncontrast coronal and sagittal T1 spin echo and STIR; axial T1 spin echo and T2 fast spin echo with fat saturation through the right lower leg. COMPARISON: None. FINDINGS: Image quality: Excellent. Bones: The visualized bone marrow demonstrates normal signal on all sequences. The overlying cortex appears intact. No fractures lines or intra-osseous lesions. Soft tissues: There is marked thickening of the Achilles tendon, with amorphous intrasubstance signal changes, which spans a total length in the cephalocaudal dimension of approximately 16.6 cm. No complete rupture is seen. There is adjacent paratenonitis and soft tissue edema. No definite or gross muscle atrophy however there is diffuse fatty infiltration of the soleus muscle.. Vessels appear within normal limits. Subcutaneous soft tissues unremarkable. IMPRESSION: Extensive Achilles tendinopathy and thickening, presumed chronic partial tear. No complete rupture. Diffuse fatty infiltration of the soleus muscle, suggesting early atrophic change. Dictated by: Jose E Mitchell M.D. on 01/11/2021 at 8:41 Approved by: Jose E Mitchell M.D. on 01/11/2021 at 8:55
== END ==
PROVIDERS: Referring Provider Student in an Organized Health Care Education/Training Program; Visit Provider Student in an Organized Health Care Education/Training Program
DX: S86.011A Strain of right Achilles tendon, initial encounter (principal); X58.XXXA Exposure to other specified factors, initial encounter
CPT/HCPCS: 73718

== ENCOUNTER 2021-08-28 19:22 | Emergency (ER) | payer OTHER, SELFPAY ==
--- NOTE | 2021-08-28 19:35 | ED.SOB ---
HPI - SOB/Dyspnea General Chief Complaint: Nausea/Vomiting/Diarrhea Stated Complaint: covid+/sob/vomiting x7 days Time Seen by Provider: 08/28/21 19:32 Source: patient Limitations: no limitations History of Present Illness HPI Narrative: This is a 46-year-old male who comes in with complaint of a positive COVID home test approximately a week ago. Patient states he has had continued chest pain and shortness of breath. No fevers recently. He has had intermittent nausea and vomiting. He can sometimes keep fluids down but has had difficulty keeping them down consistently and has had some difficulty keeping his home medications down. He has had diarrhea often 1 to 2 times a day. He has had this for the past week. He denies abdominal discomfort. He states he has been urinating regularly. No dysuria urgency or frequency. He does have a history of conversion disorder and psychiatric issues which he takes medications for. Patient denies any major surgeries at this time. He does smoke, occasional alcohol, no illicit. Related Data Home Medications Medication Instructions Recorded Confirmed atenolol 50 mg tablet 50 mg PO DAILY 07/21/19 07/21/19 clonazepam 1 mg tablet 1 mg PO QAM 07/21/19 07/21/19 duloxetine 30 mg capsule,delayed 30 mg PO DAILY 07/21/19 07/21/19 release duloxetine 60 mg capsule,delayed 60 mg PO DAILY 07/21/19 07/21/19 release lithium carbonate 300 mg capsule 300 mg PO TID 07/21/19 omeprazole 20 mg capsule,delayed 20 mg PO DAILY 07/21/19 07/21/19 release Previous Rx's Medication Instructions Recorded hydrocodone 5 mg-acetaminophen 325 1 tab PO Q4-6H PRN #10 tab 07/21/19 mg tablet ketorolac 10 mg tablet 10 mg PO Q6H PRN #14 tab 07/21/19 ondansetron 4 mg disintegrating 4 mg PO TID-QID PRN #10 tab 07/21/19 tablet ondansetron 4 mg disintegrating 4 mg PO Q6H PRN #10 tab 08/28/21 tablet Allergies Allergy/AdvReac Type Severity Reaction Status Date / Time No Known Drug Allergies Allergy Verified 06/21/20 09:30 Review of Systems Review of Systems ROS Unobtainable: All systems reviewed & are unremarkable except as noted in HPI and below Patient History Medical History (Updated 08/28/21 @ 20:08 by Avani Blue DO) Anxiety Appendicitis Depression GERD (gastroesophageal reflux disease) Surgical History History of tonsillectomy Social History marital status: Smoking Status: Current every day smoker alcohol intake: never Smoking Status: Current every day smoker tobacco type: cigarettes alcohol intake frequency: holidays/special occasions only Alcohol type: hard liquor Substance Use Type: does not use Exam Narrative Exam Narrative: GENERAL: Alert and oriented x three, male in mild distress. HEENT: Head normocephalic, atraumatic, EOMI, pupils reactive, face symmetric, moist mucous membranes NECK: Supple, full range of motion CARDIOVASCULAR: Regular rate and rhythm without murmurs, rubs or gallops. RESPIRATORY: Breath sounds equal bilaterally, no wheezes rales or rhonchi. No tachypnea accessory muscle use. Patient does have dry cough. ABDOMEN: Soft, nontender. Normoactive bowel sounds all 4 quadrants. No guarding or rebound, rigidity, no mass : No CVA tenderness EXTREMITIES: Normal range of motion, no clubbing or edema. Neurovascularly intact NEUROLOGICAL: Cranial nerves II through XII grossly intact. Moving all extremities SKIN: Warm, dry, no petechiae, no rashes or lesions. Initial Vital Signs Initial Vital Signs: Vital Signs Temperature 97.9 F 08/28/21 19:44 Pulse Rate 63 08/28/21 19:44 Respiratory Rate 20 08/28/21 19:44 Blood Pressure 108/63 08/28/21 19:44 Pulse Oximetry 99 08/28/21 19:44 Course Orders Ordered: Discontinued Medications Sodium Chloride (Normal Saline 0.9%) 1,000 mls @ 1,000 mls/hr IV BOLUS ONE Stop: 08/28/21 21:03 Last Admin: 08/28/21 20:32 Dose: 1,000 mls/hr Documented by: EBONY Ondansetron HCl (Ondansetron 4 Mg/2 Ml Inj) 4 mg IV NOW ONE Stop: 08/28/21 20:05 Last Admin: 08/28/21 20:32 Dose: 4 mg Documented by: EBONY Ondansetron HCl (Ondansetron 4 Mg Odt Prepack) 1 bottle [facility] [place] [facility] ONE Stop: 08/28/21 21:26 Reevaluation(s) Reevaluation #1: Patient is feeling better. Labs reviewed. had discussed separately with staff that she is worried about his depression. He has been admitted once before for overdose. Patient states he is depressed but feels like he is doing okay. He is not having any suicidal thoughts or ideation. His is concerned because he has not been very active or leaving the house particularly since he has been sick. She does not feel that he is suicidal or having thoughts of harming others. He is doing tele-visits for medication management. They are both open to having social Work reach out by phone tomorrow. Patient is open to reaching out to family for help or returning if he feels he is a danger to himself or others or acutely worsening. Medically cleared. Time: 21:32 Vital Signs Vital signs: Vital Signs - 8 hr 08/28/21 19:44 Temperature 97.9 F Pulse Rate 63 Respiratory Rate 20 Blood Pressure 108/63 Pulse Oximetry 99 MDM - SOB/Dyspnea Lab Data Result diagrams: 08/28/21 20:25 08/28/21 20:25 Labs: Lab Results 08/28/21 08/28/21 08/28/21 Range/Units 20:25 20:25 20:25 WBC 4.1 L (4.5-11.0) X10^3/uL RBC 4.97 (4.5-5.9) X10^6/uL Hgb 14.5 (13.5-17.5) g/dL Hct 42.6 (41-53) % MCV 85.7 (80-100) fL MCH 29.1 (26-34) PG MCHC 33.9 (30-36) % RDW 14.5 (11.6-14.8) % Plt Count 188 (150-400) X10^3/uL Neut % (Auto) 49.8 L (50-75) % Lymph % (Auto) 39.4 (25-40) % [place] % (Auto) 10.3 (3-14) % Eos % (Auto) 0.2 L (2-4) % Baso % (Auto) 0.3 (0-2) % Neut # (Auto) 2000 (0327-3264) /uL Lymph # (Auto) 1600 (8775-9689) /uL [place] # (Auto) 400 (0-900) /uL Eos # (Auto) 0 (0-450) /uL Baso # (Auto) 0 (0-100) /uL Sodium 133 L (137-145) mmol/L Potassium 4.1 (3.4-5.1) mmol/L Chloride 99 (98-107) mmol/L Carbon Dioxide 28 (22-32) mmol/L BUN 13 (9-20) mg/dL Creatinine 0.91 (0.66-1.25) mg/dL Estimated GFR > 60.0 (>60) mL/min BUN/Creatinine Ratio 14.3 (6-22) Glucose 123 H (70-100) mg/dL Calcium 9.0 (8.4-10.2) mg/dL Total Bilirubin 0.6 (0.2-1.3) mg/dL AST 46 (17-59) IU/L ALT 39 (<50) IU/L Alkaline Phosphatase 77 (38-126) U/L Total Protein 7.3 (6.3-8.2) g/dL Albumin 4.3 (3.5-5.0) g/dL Globulin 3.0 (1.7-4.1) g/dL Albumin/Globulin Ratio 1.4 (1.0-2.8) Lipase 85 (23-300) U/L MDM Narrative Medical decision making narrative: This is a 46-year-old male with a home test that was positive for COVID approximately a week ago he has had some intermittent nausea and vomiting and diarrhea. Patient complains that he has had difficulty keeping down his home medications. His sodium slightly low but labs are otherwise reassuring. His white count does show a leukopenia consistent with COVID infection. I did not re-swab him today based on his recent + home test. Plan for Zofran as needed at home. Social work to reach out for follow up. Patient has resources available as well. Discharge Plan Departure Patient Disposition: Home Clinical Impression: Nausea & vomiting, COVID-19 virus infection Instructions: DI for Vomiting -- Adult Activity Restrictions/Additional Instructions: Follow-up if persistent vomiting beyond the next week. It is quite common to have nausea, vomiting and diarrhea with coronavirus infections. You may take Zofran 1 tablet every 6 hours as needed. Prescription sent to [facility] pharmacy. Please return for fevers, new or worsening shortness of breath, chest pain, persistent vomiting, black or bloody stools, no abdominal pain or other new or concerning symptoms. Prescriptions: New ondansetron 4 mg tablet,disintegrating 4 mg PO Q6H PRN (Reason: nausea and vomiting) Qty: 10 0RF No Action clonazepam 1 mg tablet 1 mg PO QAM 0RF Label Comments: take 1 tablet by mouth every morning lithium carbonate 300 mg capsule 300 mg PO TID 0RF omeprazole 20 mg capsule,delayed release(DR/EC) 20 mg PO DAILY 0RF atenolol 50 mg tablet 50 mg PO DAILY 0RF duloxetine 30 mg capsule,delayed release(DR/EC) 30 mg PO DAILY 0RF duloxetine 60 mg capsule,delayed release(DR/EC) 60 mg PO DAILY 0RF hydrocodone-acetaminophen 5-325 mg tablet 1 tab PO Q4-6H PRN (Reason: pain) Qty: 10 0RF ketorolac 10 mg tablet 10 mg PO Q6H PRN (Reason: pain) Qty: 14 0RF ondansetron 4 mg tablet,disintegrating 4 mg PO TID-QID PRN (Reason: nausea and vomiting) Qty: 10 0RF
[2021-08-28 19:44] VITALS: BP 108/63; PULSE 63; RESP 20; TEMP 36.6; O2SAT 99
[2021-08-28] MEDS: SODIUM CHLORIDE 0.9% 1,000 ML 1000 ML IV (20:32)
[2021-08-28] MEDS: ONDANSETRON 4 MG/2 ML INJ IV (20:32)
--- NOTE | 2021-08-28 20:36 | PC.NURSE ---
pt reports being unvaccinated and minerva covid now c/o [place] and is unable to keep anything down. pt a/o 3.3 speaking in full sentences
[2021-08-28 20:37] LABS: Add Manual Diff / Slide Review NO; Basophils Absolute Auto 0 /uL (0-100); Basophils Percent Auto 0.3 % (0-2); Eosinophils Absolute Auto 0 /uL (0-450); Eosinophils Percent Auto 0.2 % (2-4); Hematocrit 42.6 % (41-53); Hemoglobin 14.5 g/dL (13.5-17.5); Lymphocytes Absolute Auto 1600 /uL (1100-4500); Lymphocytes Percent Auto 39.4 % (25-40); Mean Corpuscular HGB Conc 33.9 % (30-36); Mean Corpuscular Hemoglobin 29.1 PG (26-34); Mean Corpuscular Volume 85.7 fL (80-100); Monocytes Absolute Auto 400 /uL (0-900); Monocytes Percent Auto 10.3 % (3-14); Neutrophils Absolute Auto 2000 /uL (1500-7000); Neutrophils Percent Auto 49.8 % (50-75); Platelet Count 188 X10^3/uL (150-400); Red Blood Cell Count 4.97 X10^6/uL (4.5-5.9); Red Cell Distribution Width 14.5 % (11.6-14.8); White Blood Cell Count 4.1 X10^3/uL (4.5-11.0)
[2021-08-28 20:56] LABS: Alanine Aminotransferase 39 IU/L (<50); Albumin 4.3 g/dL (3.5-5.0); Albumin Globulin Ratio 1.4 (1.0-2.8); Alkaline Phosphatase 77 U/L (38-126); Aspartate Aminotransferase 46 IU/L (17-59); BUN Creatinine Ratio 14.3 (6-22); Bilirubin Total 0.6 mg/dL (0.2-1.3); Blood Urea Nitrogen 13 mg/dL (9-20); Carbon Dioxide 28 mmol/L (22-32); Chloride 99 mmol/L (98-107); Estimated Glomerular Filt Rate > 60.0 mL/min (>60); Glucose 123 mg/dL (70-100); HEMOLYSIS < 15 (0-50); Lipase 85 U/L (23-300); Potassium 4.1 mmol/L (3.4-5.1); Sodium 133 mmol/L (137-145); Total Protein 7.3 g/dL (6.3-8.2)
[2021-08-28 21:33] VITALS: BP 115/72; PULSE 83; RESP 16; O2SAT 97
== END 2021-08-28 21:34 | disposition home or self-care (01) ==
PROVIDERS: Emergency Provider Emergency Medicine
DX: U07.1 COVID-19 (principal); R11.2 Nausea with vomiting, unspecified; R19.7 Diarrhea, unspecified
CPT/HCPCS: 36415; 80053; 83690; 85025; 96374; 99284; J2405

== ENCOUNTER → 2021-10-24 08:48 | Outpatient (CLI) | payer OTHER, SELFPAY ==
--- NOTE | 2021-10-24 | DI.MRI.S_ITS ---
PROCEDURE: MR HEAD/BRAIN WO/W CON INDICATIONS: CHOREA, headache TECHNIQUE: Noncontrast axial T1 spin echo, axial T2 fast spin echo, sagittal and axial FLAIR, coronal T2 fast spin echo, axial gradient echo, axial diffusion and ADC through the brain. After the administration of contrast, axial and coronal 3D VIBE or T1 spin echo with fat saturation through the brain. COMPARISON: None. FINDINGS: Image quality: Excellent. CSF Spaces: Basal cisterns are patent. No extra-axial fluid collections. Ventricles are normal in size and shape. Brain: No midline shift. No intracranial bleeds or masses. No abnormal intracranial enhancement. The brainstem appears normal. Diffusion-weighted images demonstrate no acute infarct. Nonspecific trace white matter hyperintensities in both frontal lobes measure less than 5 mm. Normal intravascular flow voids are present. Skull and face: Calvarial marrow is normal in signal. Orbits appear normal. Sinuses: Sinuses and mastoids appear clear. IMPRESSION: 1. Nonspecific small white matter bifrontal hyperintensities probably reflects early microvascular chronic ischemic change. Less likely differential possibilities include migrainous vasculopathy, small vessel vasculitis, and sequelae from prior traumatic or inflammatory insults. Approved by: Don Mera M.D. on 10/24/2021 at 10:51
== END ==
PROVIDERS: Referring Provider Nurse Practitioner Family; Visit Provider Nurse Practitioner Family
DX: G25.5 Other chorea (principal); R51.9 Headache, unspecified
CPT/HCPCS: 70553; A9579

== ENCOUNTER → 2023-02-12 | Outpatient (CLI) | payer MEDICARE, OTHER, SELFPAY ==
--- NOTE | 2023-02-12 15:47 | DI.RAD.S_ITS ---
PROCEDURE: XR FOOT LT 2V INDICATIONS: Pain in unspecified joint TECHNIQUE: 3 views of the foot were acquired. COMPARISON: None. FINDINGS: Bones: No fractures or dislocations. No suspicious bony lesions. Mild osteoarthritic changes at the tailor navicular joint. Prominent posterior calcaneal spurring at the Achilles tendon insertion. Soft tissues: No tibiotalar joint effusion. Achilles tendon appears normal. Bunionette. IMPRESSION: 1. Prominent posterior calcaneal spur at the Achilles tendon insertion, consistent with Achilles enthesopathy. 2. Mild osteoarthritis. 3. Bunionette. Dictated by: Mt Sanchez M.D. on 02/12/2023 at 21:40 Approved by: Mt Sanchez M.D. on 02/12/2023 at 21:41
--- NOTE | 2023-02-12 15:47 | DI.RAD.S_ITS ---
PROCEDURE: XR FOOT RT 2V INDICATIONS: Pain in unspecified joint TECHNIQUE: 3 views of the foot were acquired. COMPARISON: [facility], CR, XR FOOT LT 2V, 02/12/2023, 16:02. FINDINGS: Bones: No fractures or dislocations. No suspicious bony lesions. Prominent retrocalcaneal bone spur. Soft tissues: No tibiotalar joint effusion. Achilles tendon appears normal. Calcification along the distal Achilles tendon. IMPRESSION: Calcaneal enthesophyte and distal Achilles tendon calcification. Dictated by: Ignacio Lantigua RR Interpreted: Garcia Monae MD on 02/12/2023 at 20:40 Approved by: Garcia Monae M.D. on 02/23/2023 at 17:41
--- NOTE | 2023-02-12 15:47 | DI.RAD.S_ITS ---
PROCEDURE: XR HAND RT 2V INDICATIONS: Pain in unspecified joint TECHNIQUE: 3 views of the hand(s) acquired. COMPARISON: [facility], CR, XR HAND LT 2V, 02/12/2023, 16:12. FINDINGS: Bones: No fractures or dislocations. Carpal bones are normally aligned. No suspicious bony lesions. Soft tissues: No suspicious soft tissue calcifications. IMPRESSION: Joints are well maintained and no inflammatory arthritic changes. Dictated by: Ignacio ROSARIO Interpreted: Garcia Monae MD on 02/12/2023 at 20:43 Transcribed by: REJI on 02/13/2023 at 8:38 Approved by: Garcia Monae M.D. on 02/23/2023 at 17:42
--- NOTE | 2023-02-12 15:47 | DI.RAD.S_ITS ---
PROCEDURE: XR HAND LT 2V INDICATIONS: Pain in unspecified joint TECHNIQUE: 3 views of the hand(s) acquired. COMPARISON: None. FINDINGS: Bones: No fractures or dislocations. Carpal bones are normally aligned. No suspicious bony lesions. Juxta-articular lucencies involving the 2nd through 4th MCP joints. Soft tissues: No suspicious soft tissue calcifications. IMPRESSION: Juxta-articular lucencies involving the 2nd through 4th MCP joints consistent with subchondral cystic change versus bony erosions. Dictated by: Ignacio ROSARIO Interpreted: Garcia Monae MD on 02/12/2023 at 20:41 Approved by: Garcia Monae M.D. on 02/23/2023 at 17:40
--- NOTE | 2023-02-12 15:47 | DI.RAD.S_ITS ---
PROCEDURE: XR KNEE LT 3V INDICATIONS: Pain in unspecified joint TECHNIQUE: 3 views of the knee were acquired. COMPARISON: None. FINDINGS: Bones: No fractures or dislocations. No suspicious bony lesions. Mild tricompartmental knee joint degeneration. Soft tissues: Trace joint effusion. No suspicious soft tissue calcifications. IMPRESSION: Mild osteoarthritis. Dictated by: Mt Sanchez M.D. on 02/12/2023 at 21:13 Approved by: Mt Sanchez M.D. on 02/12/2023 at 21:14
== END ==
PROVIDERS: PCP Family Medicine; Referring Provider Family Medicine; Visit Provider Family Medicine
DX: M17.12 Unilateral primary osteoarthritis, left knee (principal); M77.32 Calcaneal spur, left foot; M77.31 Calcaneal spur, right foot; M19.072 Primary osteoarthritis, left ankle and foot; M21.622 Bunionette of left foot; M65.871 Other synovitis and tenosynovitis, right ankle and foot; M25.50 Pain in unspecified joint
CPT/HCPCS: 73120; 73562; 73620

== ENCOUNTER 2023-05-23 05:10 | Emergency (ER) | payer MEDICARE, OTHER, SELFPAY ==
[2023-05-23] VITALS (12 sets, daily range): BP systolic 154–194; BP diastolic 97–117; PULSE 67–80; RESP 16–57; TEMP 36.2–36.8; O2SAT 95–99; BMI 33.7
--- NOTE | 2023-05-23 05:20 | PC.NURSE ---
Patient states waking up by acute onset of RUQ/epigastric pain. Patient states nausea and retching, denies vomiting. Patient denies recent illness or fever.
--- NOTE | 2023-05-23 05:22 | DI.CT.S_ITS ---
PROCEDURE: CT ABDOMEN PELVIS W CON INDICATIONS: epigastric and RUQ pain TECHNIQUE: After the administration of IV contrast, axial sections were acquired from the lung bases to the pubic symphysis. Coronal and sagittal reformats were performed. For radiation dose reduction, the following was used: automated exposure control, adjustment of mA and/or kV according to patient size. COMPARISON: [facility], CT, CT CHEST ABD PEL W CON, 06/21/2020, 9:36. [facility], US, US ABDOMEN LIMITED, 05/23/2023, 7:17. FINDINGS: Image quality: There is artifact associated with the metallic hardware. Artifact from the metallic hardware is reduced by metal reconstruction algorithm. Lung bases: Minimal dependent atelectasis can be seen at the lung bases. Heart: No significant findings. ABDOMEN: Liver: Diffuse fatty liver infiltration is noted. Gallbladder: Mild distention of the gallbladder is seen. The gallbladder wall is not frankly. No pericholecystic fluid is seen. No radiopaque stones are seen. Biliary ducts: Unremarkable. Pancreas: Unremarkable. Spleen: Unremarkable. Adrenal Glands: Unremarkable. Kidneys and Ureters: Nonobstructing bilateral renal stones are seen, measuring to 5 mm on the right side, measuring 300 Hounsfield units. The kidneys demonstrate normal size and enhance symmetrically. There is no hydronephrosis. Stomach and Bowel: Stomach, small bowel loops, and colon are unremarkable. Prior appendectomy Peritoneum: No abnormal intraperitoneal fluid. No free air. Ventral Wall: No hernia. Abdominal Nodes: No retroperitoneal or mesenteric adenopathy by size criteria. Vessels: Aorta and inferior vena cava are normal in size. PELVIS: Pelvic Organs: Unremarkable. Bladder: Unremarkable. Pelvic Nodes: No enlarged lymph nodes. Miscellaneous: No inguinal hernias are seen. Bones: Thoracolumbar fixation hardware is seen. There has been removal of portions of the posterior elements. Stable compression deformities can be seen at T11, T12, and L1. Bilateral L5 pars defects are seen, with grade 1 L5-S1 anterolisthesis, with associated focal degenerative change at L5-S1. IMPRESSION: Mildly distended gallbladder, without stones or gallbladder wall thickening seen by CT. Additional findings: Fatty liver infiltration Nonobstructing bilateral renal stones Thoracolumbar fixation hardware Removal of portions of the posterior elements Stable T11, T12, and L1 compression deformities Bilateral L5 pars defects, with grade 1 L5-S1 anterolisthesis Focal L5-S1 degenerative change Appendectomy Note: No significant discrepancy from the preliminary report. Dictated by: Heriberto Gutierrez M.D. on 05/23/2023 at 6:29 Approved by: Heriberto Gutierrez M.D. on 05/23/2023 at 6:36
[2023-05-23] MEDS: ONDANSETRON 4 MG/2 ML INJ IV (05:30)
[2023-05-23] MEDS: SODIUM CHLORIDE 0.9% 1,000 ML 1000 ML IV (05:30)
[2023-05-23] MEDS: HYDROMORPHONE 1 MG INJ 0.5 MG IV (05:30)
--- NOTE | 2023-05-23 05:31 | ED_ITS ---
HPI - General Adult <Linda Tierney MD - Last Filed: 05/23/23 18:06> General Chief complaint: Abdominal Pain Stated complaint: pain in chest Time Seen by Provider: 05/23/23 05:13 Source: patient Mode of arrival: Wheelchair History of Present Illness HPI narrative: 47-year-old gentleman on no current medications has had back surgery and an appendectomy in the past was in his usual state of excellent health until approximately 430 this morning when he was awakened from sleep with severe midepigastric pain radiating into the right upper quadrant. He describes it as a sharp stabbing pain just under his xiphoid process and expanding into the right upper quadrant. He is never had gallbladder or gastric issues to his knowledge. He notes he had hamburger helper for dinner last night. Was feeling fine when he went to bed. He is somewhat pale and diaphoretic on arrival but able to communicate completely. He is nauseated but has not actually vomited. He does not have any upper chest pain or palpitations Related Data Home Medications Medication Instructions Recorded Confirmed atenolol 50 mg tablet 50 mg PO DAILY 07/21/19 07/21/19 clonazepam 1 mg tablet 1 mg PO QAM 07/21/19 07/21/19 duloxetine 30 mg capsule,delayed 30 mg PO DAILY 07/21/19 07/21/19 release duloxetine 60 mg capsule,delayed 60 mg PO DAILY 07/21/19 07/21/19 release lithium carbonate 300 mg capsule 300 mg PO TID 07/21/19 omeprazole 20 mg capsule,delayed 20 mg PO DAILY 07/21/19 07/21/19 release Previous Rx's Medication Instructions Recorded hydrocodone 5 mg-acetaminophen 325 1 tab PO Q4-6H PRN pain #10 tabs 07/21/19 mg tablet ketorolac 10 mg tablet 10 mg PO Q6H PRN pain #14 tabs 07/21/19 ondansetron 4 mg disintegrating 4 mg PO TID-QID PRN nausea and 07/21/19 tablet vomiting #10 tabs ondansetron 4 mg disintegrating 4 mg PO Q6H PRN nausea and 08/28/21 tablet vomiting #10 tabs hydrocodone 5 mg-acetaminophen 325 1 tab PO Q6H PRN pain #10 tabs 05/23/23 mg tablet ondansetron 4 mg disintegrating 4 mg PO Q8H PRN nausea and 05/23/23 tablet vomiting #10 tabs Allergies Allergy/AdvReac Type Severity Reaction Status Date / Time No Known Drug Allergies Allergy Verified 06/21/20 09:30 Review of Systems <Linda Tierney MD - Last Filed: 05/23/23 18:06> Review of Systems Narrative: Pertinent positive and negative findings as per HPI Patient History <Linda Tierney MD - Last Filed: 05/23/23 18:06> Medical History (Updated 05/23/23 @ 08:06 by Fadumo Akers DO) GERD (gastroesophageal reflux disease) Anxiety Depression Surgical History (Updated 05/23/23 @ 05:39 by Linad Tierney MD) Hx of appendectomy History of tonsillectomy Social History marital status: Smoking Status: Current every day smoker alcohol intake: never Smoking Status: Current every day smoker tobacco type: cigarettes alcohol intake frequency: holidays/special occasions only Alcohol type: hard liquor Substance Use Type: does not use Exam <Linda Tierney MD - Last Filed: 05/23/23 18:06> Initial Vital Signs Initial Vital Signs: Vital Signs Temperature 97.1 F L 05/23/23 05:17 Pulse Rate 73 05/23/23 05:17 Respiratory Rate 18 05/23/23 05:17 Blood Pressure 194/117 H 05/23/23 05:17 Pulse Oximetry 98 05/23/23 05:17 Oxygen Delivery Method Room Air 05/23/23 05:17 General: Mildly diaphoretic, pale in moderate distress secondary to pain Able to give a complete and coherent history. Well-nourished well-developed HEENT: Moist mucous membranes, normal sclera with reactive pupils, Neck: No JVD, supple Respiratory: Lungs are clear to auscultation, no wheezing no rales no rhonchi. Full and symmetrical air movement Cardiac: Regular rate and rhythm no murmurs no bruits Abdomen: Soft, tender in the epigastrium and into the right upper quadrant without rebound or guarding. There is no lower abdominal tenderness Neurologic: Grossly neurologically intact with no obvious asymmetries or abnormalities Extremities: No trauma, well perfused Psych: Cooperative, appropriate insight and affect <Fadumo Akers DO - Last Filed: 05/23/23 08:27> Initial Vital Signs Initial Vital Signs: Vital Signs Temperature 97.1 F L 05/23/23 05:17 Pulse Rate 73 05/23/23 05:17 Respiratory Rate 18 05/23/23 05:17 Blood Pressure 194/117 H 05/23/23 05:17 Pulse Oximetry 98 05/23/23 05:17 Oxygen Delivery Method Room Air 05/23/23 05:17 Course <Linda Tierney MD - Last Filed: 05/23/23 18:06> Orders Ordered: Discontinued Medications Hydromorphone HCl (Hydromorphone 1 Mg Inj) 0.5 mg IV Q15MIN PRN PRN Reason: Pain, Severe (7-10) Last Admin: 05/23/23 05:30 Dose: 0.5 mg Documented By: EMILY Hydromorphone HCl (Hydromorphone 0.5 Mg Inj) 0.5 mg IV Q15MIN PRN PRN Reason: Pain, Sodium Chloride (Normal Saline 0.9%) 1,000 mls @ 1,000 mls/hr IV BOLUS PRN PRN Reason: Fluid replacement Last Infusion: 05/23/23 06:20 Dose: Infused Documented By: Admin: 05/23/23 05:30 Dose: 1,000 mls/hr Documented By: EMILY Ondansetron HCl (Ondansetron 4 Mg/2 Ml Inj) 4 mg IV NOW ONE Stop: 05/23/23 05:22 Last Admin: 05/23/23 05:30 Dose: 4 mg Documented By: EMILY Vital Signs Vital signs: Vital Signs - 8 hr 05/23/23 05:17 05/23/23 05:19 05/23/23 05:30 Temperature 97.1 F L Pulse Rate 73 80 71 Respiratory Rate 18 21 Blood Pressure 194/117 H Pulse Oximetry 98 95 95 Oxygen Delivery Method Room Air 05/23/23 05:30 05/23/23 06:00 05/23/23 06:00 Temperature Pulse Rate 72 Respiratory Rate 20 Blood Pressure 176/97 H 166/107 H Pulse Oximetry 95 Oxygen Delivery Method 05/23/23 06:23 05/23/23 06:23 05/23/23 06:30 Temperature Pulse Rate 72 69 Respiratory Rate 16 Blood Pressure 156/97 H Pulse Oximetry 98 99 Oxygen Delivery Method 05/23/23 06:36 05/23/23 06:36 05/23/23 07:00 Temperature Pulse Rate 72 Respiratory Rate 22 Blood Pressure 158/98 H 154/97 H Pulse Oximetry 99 Oxygen Delivery Method 05/23/23 07:00 05/23/23 07:13 05/23/23 07:13 Temperature Pulse Rate 69 72 Respiratory Rate 57 H 23 Blood Pressure 162/100 H Pulse Oximetry 99 96 Oxygen Delivery Method 05/23/23 07:30 05/23/23 07:30 05/23/23 08:00 Temperature Pulse Rate 67 Respiratory Rate Blood Pressure 154/97 H 158/105 H Pulse Oximetry 96 Oxygen Delivery Method 05/23/23 08:00 05/23/23 08:16 Temperature 98.2 F Pulse Rate 68 Respiratory Rate Blood Pressure Pulse Oximetry 96 Oxygen Delivery Method <Fadumo Akers, - Last Filed: 05/23/23 08:27> Orders Ordered: Discontinued Medications Hydromorphone HCl (Hydromorphone 1 Mg Inj) 0.5 mg IV Q15MIN PRN PRN Reason: Pain, Severe (7-10) Last Admin: 05/23/23 05:30 Dose: 0.5 mg Documented By: EMILY Hydromorphone HCl (Hydromorphone 0.5 Mg Inj) 0.5 mg IV Q15MIN PRN PRN Reason: Pain, Sodium Chloride (Normal Saline 0.9%) 1,000 mls @ 1,000 mls/hr IV BOLUS PRN PRN Reason: Fluid replacement Last Infusion: 05/23/23 06:20 Dose: Infused Documented By: Admin: 05/23/23 05:30 Dose: 1,000 mls/hr Documented By: EMILY Ondansetron HCl (Ondansetron 4 Mg/2 Ml Inj) 4 mg IV NOW ONE Stop: 05/23/23 05:22 Last Admin: 05/23/23 05:30 Dose: 4 mg Documented By: EMILY Vital Signs Vital signs: Vital Signs - 8 hr 05/23/23 05:17 05/23/23 05:19 05/23/23 05:30 Temperature 97.1 F L Pulse Rate 73 80 71 Respiratory Rate 18 21 Blood Pressure 194/117 H Pulse Oximetry 98 95 95 Oxygen Delivery Method Room Air 05/23/23 05:30 05/23/23 06:00 05/23/23 06:00 Temperature Pulse Rate 72 Respiratory Rate 20 Blood Pressure 176/97 H 166/107 H Pulse Oximetry 95 Oxygen Delivery Method 05/23/23 06:23 05/23/23 06:23 05/23/23 06:30 Temperature Pulse Rate 72 69 Respiratory Rate 16 Blood Pressure 156/97 H Pulse Oximetry 98 99 Oxygen Delivery Method 05/23/23 06:36 05/23/23 06:36 05/23/23 07:00 Temperature Pulse Rate 72 Respiratory Rate 22 Blood Pressure 158/98 H 154/97 H Pulse Oximetry 99 Oxygen Delivery Method 05/23/23 07:00 05/23/23 07:13 05/23/23 07:13 Temperature Pulse Rate 69 72 Respiratory Rate 57 H 23 Blood Pressure 162/100 H Pulse Oximetry 99 96 Oxygen Delivery Method 05/23/23 07:30 05/23/23 07:30 05/23/23 08:00 Temperature Pulse Rate 67 Respiratory Rate Blood Pressure 154/97 H 158/105 H Pulse Oximetry 96 Oxygen Delivery Method 05/23/23 08:00 05/23/23 08:16 Temperature 98.2 F Pulse Rate 68 Respiratory Rate Blood Pressure Pulse Oximetry 96 Oxygen Delivery Method Medical Decision Making <Linda Tierney MD - Last Filed: 05/23/23 18:06> Lab Data 05/23/23 05:20 05/23/23 05:20 Labs: Lab Results 05/23/23 Range/Units 05:20 WBC 7.6 (4.5-11.0) X10^3/uL RBC 5.20 (4.5-5.9) X10^6/uL Hgb 15.6 (13.5-17.5) g/dL Hct 45.1 (41-53) % MCV 86.8 (80-100) fL MCH 30.0 (26-34) PG MCHC 34.5 (30-36) % RDW 14.1 (11.6-14.8) % Plt Count 256 (150-400) X10^3/uL Neut % (Auto) 47.6 L (50-75) % Lymph % (Auto) 41.3 H (25-40) % [place] % (Auto) 8.0 (3-14) % Eos % (Auto) 2.2 (2-4) % Baso % (Auto) 0.9 (0-2) % Neut # (Auto) 3600 (5085-4360) /uL Lymph # (Auto) 3200 (3605-0761) /uL [place] # (Auto) 600 (0-900) /uL Eos # (Auto) 200 (0-450) /uL Baso # (Auto) 100 (0-100) /uL Sodium 139 (137-145) mmol/L Potassium 4.8 (3.4-5.1) mmol/L Chloride 104 (98-107) mmol/L Carbon Dioxide 26 (22-32) mmol/L BUN 23 H (9-20) mg/dL Creatinine 0.92 (0.66-1.25) mg/dL Estimated GFR > 60 (>60) mL/min BUN/Creatinine Ratio 25.0 H (6-22) Glucose 113 H (70-100) mg/dL Calcium 9.9 (8.4-10.2) mg/dL Total Bilirubin 0.6 (0.2-1.3) mg/dL AST 35 (17-59) IU/L ALT 36 (<50) IU/L Alkaline Phosphatase 85 (38-126) U/L Troponin I < 0.012 (0.01-0.034) ng/mL Total Protein 7.2 (6.3-8.2) g/dL Albumin 4.5 (3.5-5.0) g/dL Globulin 2.7 (1.7-4.1) g/dL Albumin/Globulin Ratio 1.7 (1.0-2.8) Lipase 83 (23-300) U/L Urine Dip Bedside Urine Glucose Negative Bedside Urine Bilirubin - Negative Bedside Urine Ketone - Negative Urine Specific [place] 1.015 Bedside Urine Occult Blood - Negative Bedside Urine pH 6 Bedside Urine Protein - Negative Bedside Urine Urobilinogen - Negative Bedside Urine Nitrite - Negative Bedside Urine Leukocytes - Negative Esterase Point of care testing: Urine Dip Bedside Urine Glucose Negative Bedside Urine Bilirubin - Negative Bedside Urine Ketone - Negative Urine Specific [place] 1.015 Bedside Urine Occult Blood - Negative Bedside Urine pH 6 Bedside Urine Protein - Negative Bedside Urine Urobilinogen - Negative Bedside Urine Nitrite - Negative Bedside Urine Leukocytes - Negative Esterase [facility] Narrative Medical decision making narrative: CC: Subxiphoid pain radiating into the right upper quadrant Data collected from: patient, Medical records reviewed: Prior ER records with scattered ER visits over the last 3 years are reviewed Differential considered: Acute coronary syndrome, pancreatitis, gastritis, perforating ulcer, cholecystitis, bowel obstruction Exam documented above, pertinent findings include: 47-year-old gentleman in obvious pain mildly diaphoretic tender in the epigastrium and 2 right upper quadrant without rebound or guarding Lab Test results independently reviewed as above. Pertinent findings: CBC is unremarkable Metabolic panel is unremarkable with normal renal function. Liver function studies are unremarkable Initial troponin is nondetectable Lipase is appropriate at 83 Independently reviewed EKG sinus rhythm at a rate of 74. Normal intervals, normal axis no acute ischemic changes Imaging studies independently reviewed: Abdominal CT shows no acute specific findings. Gallbladder is mildly distended without obvious stones. Nonobstructing bilateral renal calculi. Consultations: Treatments: Fluids, parenteral ondansetron and hydromorphone. Re-evaluations:630am patient finds that his pain is better controlled after Dilaudid and fluids. Discussion: <Fadumo Akers, DO - Last Filed: 05/23/23 08:27> Lab Data Labs: Lab Results 05/23/23 Range/Units 05:20 WBC 7.6 (4.5-11.0) X10^3/uL RBC 5.20 (4.5-5.9) X10^6/uL Hgb 15.6 (13.5-17.5) g/dL Hct 45.1 (41-53) % MCV 86.8 (80-100) fL MCH 30.0 (26-34) PG MCHC 34.5 (30-36) % RDW 14.1 (11.6-14.8) % Plt Count 256 (150-400) X10^3/uL Neut % (Auto) 47.6 L (50-75) % Lymph % (Auto) 41.3 H (25-40) % [place] % (Auto) 8.0 (3-14) % Eos % (Auto) 2.2 (2-4) % Baso % (Auto) 0.9 (0-2) % Neut # (Auto) 3600 (3985-1555) /uL Lymph # (Auto) 3200 (6122-3585) /uL [place] # (Auto) 600 (0-900) /uL Eos # (Auto) 200 (0-450) /uL Baso # (Auto) 100 (0-100) /uL Sodium 139 (137-145) mmol/L Potassium 4.8 (3.4-5.1) mmol/L Chloride 104 (98-107) mmol/L Carbon Dioxide 26 (22-32) mmol/L BUN 23 H (9-20) mg/dL Creatinine 0.92 (0.66-1.25) mg/dL Estimated GFR > 60 (>60) mL/min BUN/Creatinine Ratio 25.0 H (6-22) Glucose 113 H (70-100) mg/dL Calcium 9.9 (8.4-10.2) mg/dL Total Bilirubin 0.6 (0.2-1.3) mg/dL AST 35 (17-59) IU/L ALT 36 (<50) IU/L Alkaline Phosphatase 85 (38-126) U/L Troponin I < 0.012 (0.01-0.034) ng/mL Total Protein 7.2 (6.3-8.2) g/dL Albumin 4.5 (3.5-5.0) g/dL Globulin 2.7 (1.7-4.1) g/dL Albumin/Globulin Ratio 1.7 (1.0-2.8) Lipase 83 (23-300) U/L Urine Dip Bedside Urine Glucose Negative Bedside Urine Bilirubin - Negative Bedside Urine Ketone - Negative Urine Specific [place] 1.015 Bedside Urine Occult Blood - Negative Bedside Urine pH 6 Bedside Urine Protein - Negative Bedside Urine Urobilinogen - Negative Bedside Urine Nitrite - Negative Bedside Urine Leukocytes - Negative Esterase Point of care testing: Urine Dip Bedside Urine Glucose Negative Bedside Urine Bilirubin - Negative Bedside Urine Ketone - Negative Urine Specific [place] 1.015 Bedside Urine Occult Blood - Negative Bedside Urine pH 6 Bedside Urine Protein - Negative Bedside Urine Urobilinogen - Negative Bedside Urine Nitrite - Negative Bedside Urine Leukocytes - Negative Esterase Imaging Data US - abdomen: Radiologist's Impression: PROCEDURE: US ABDOMEN LIMITED INDICATIONS: RUQ PAIN TECHNIQUE: Real-time focused scanning was performed of the abdomen, with image documentation. COMPARISON: [facility], CT, CT ABDOMEN PELVIS W CON, 05/23/2023, 6:18. [facility], US, US ABDOMEN COMPLETE, 05/31/2018, 20:27. FINDINGS: The liver demonstrates enlarged size. The liver demonstrates generalized moderately increased echogenicity. This decreases ultrasound sensitivity for detection of hepatic masses. Gallstones are seen within the gallbladder neck, with the largest measuring 8 mm. The gallbladder wall is minimally thickened at 3.3 mm. No specific pericholecystic fluid is seen. The sonographic Lemus sign is negative. There is no biliary dilatation, the common bile duct measures 5 mm. No significant pancreatic abnormality is seen on these images. IMPRESSION: Gallstones are seen within the gallbladder neck, with minimal gallbladder wall thickening. No additional sonographic signs of cholecystitis are seen. Enlarged, fatty liver. Dictated by: Heriberto Gutierrez M.D. on 05/23/2023 at 6:53 Approved by: Heriberto Gutierrez M.D. on 05/23/2023 at 6:55 MDM Narrative Medical decision making narrative: CC: Subxiphoid pain radiating into the right upper quadrant Data collected from: patient, Medical records reviewed: Prior ER records with scattered ER visits over the last 3 years are reviewed Differential considered: Acute coronary syndrome, pancreatitis, gastritis, perforating ulcer, cholecystitis, bowel obstruction Exam documented above, pertinent findings include: 47-year-old gentleman in obvious pain mildly diaphoretic tender in the epigastrium and 2 right upper quadrant without rebound or guarding Lab Test results independently reviewed as above. Pertinent findings: CBC is unremarkable Metabolic panel is unremarkable with normal renal function. Liver function studies are unremarkable Initial troponin is nondetectable Lipase is appropriate at 83 Independently reviewed EKG sinus rhythm at a rate of 74. Normal intervals, normal axis no acute ischemic changes Imaging studies independently reviewed: Abdominal CT shows no acute specific findings. Gallbladder is mildly distended without obvious stones. Nonobstructing bilateral renal calculi. Consultations: Treatments: Fluids, parenteral ondansetron and hydromorphone. Re-evaluations:630am patient finds that his pain is better controlled after Dilaudid and fluids. Discussion: Patient signed out to me by Dr. Tierney I have seen evaluated patient myself pain is much well-controlled minimally tender in right upper and epigastric area, ultrasound confirms cholelithiasis within gallbladder neck minimal gallbladder wall thickening but no other signs of cholecystitis. Patient does not have leukocytosis elevated bilirubin or liver enzymes or lipase. Strongly recommended patient get urgent outpatient referral discussed warning signs and when to return. Discharge Plan Departure Patient Disposition: Home Clinical Impression: Cholelithiasis Instructions: Gallstones Activity Restrictions/Additional Instructions: *You have been diagnosed with cholelithiasis *What to do: At this time you have many gallstones your gallbladder will need to come out. Recommend following a gallbladder diet *Continue to take medications as directed Motrin 600 mg every 8 hours for vkas-hm-[id number] pain [place] 1-2 tablets every 6 hours if needed for severe Zofran 4 mg every 8 hours if needed for nausea or vomiting *Follow up with your primary care provider in 2-3 days or call [phone] *Return to ER if you should have increasing pain fever persistent vomiting or any new, worsening or concerning symptoms CONTROLLED SUBSTANCE DISCHARGE (Narcotoic/benzodiazepine/Flexeril/Phenergan) 1. You have been prescribed narcotic medications, it does have acetaminophen/Tylenol/paracetamol in it, DO NOT TAKE MORE THAN 4,00mg in 24 hours of Tylenol. TRAMADOL DOES NOT CONTAIN TYLENOL 2. Please understand that we cannot provide further refills of narcotics, benzodiazepines or controlled substances through the ED and her pain management will need to be through your provider. 3. While on these medications you cannot drive or operate heavy machinery. 4. You cannot sign legal documents or perform any duties such as this. 5. As long as you're taking opiate pain medications he should also be taking a stool softener such as Colace, Dulcolax, MiraLAX or prune juice, to help avoid constipation. Prescriptions: New hydrocodone-acetaminophen 5-325 mg tablet 1 tab PO Q6H PRN (Reason: pain) Qty: 10 0RF ondansetron 4 mg tablet,disintegrating 4 mg PO Q8H PRN (Reason: nausea and vomiting) Qty: 10 0RF No Action clonazepam 1 mg tablet 1 mg PO QAM Patient Comments: take 1 tablet by mouth every morning lithium carbonate 300 mg capsule 300 mg PO TID omeprazole 20 mg capsule,delayed release(DR/EC) 20 mg PO DAILY atenolol 50 mg tablet 50 mg PO DAILY duloxetine 30 mg capsule,delayed release(DR/EC) 30 mg PO DAILY duloxetine 60 mg capsule,delayed release(DR/EC) 60 mg PO DAILY hydrocodone-acetaminophen 5-325 mg tablet 1 tab PO Q4-6H PRN (Reason: pain) Qty: 10 0RF ketorolac 10 mg tablet 10 mg PO Q6H PRN (Reason: pain) Qty: 14 0RF ondansetron 4 mg tablet,disintegrating 4 mg PO TID-QID PRN (Reason: nausea and vomiting) Qty: 10 0RF ondansetron 4 mg tablet,disintegrating 4 mg PO Q6H PRN (Reason: nausea and vomiting) Qty: 10 0RF Referrals: Nigel Limon MD [Primary Care Provider] - Stand Alone Forms: Patient Portal/API
[2023-05-23 05:35] LABS: Add Manual Diff / Slide Review NO; Basophils Absolute Auto 100 /uL (0-100); Basophils Percent Auto 0.9 % (0-2); Eosinophils Absolute Auto 200 /uL (0-450); Eosinophils Percent Auto 2.2 % (2-4); Hematocrit 45.1 % (41-53); Hemoglobin 15.6 g/dL (13.5-17.5); Lymphocytes Absolute Auto 3200 /uL (1100-4500); Lymphocytes Percent Auto 41.3 % (25-40); Mean Corpuscular HGB Conc 34.5 % (30-36); Mean Corpuscular Volume 86.8 fL (80-100); Monocytes Absolute Auto 600 /uL (0-900); Neutrophils Absolute Auto 3600 /uL (1500-7000); Neutrophils Percent Auto 47.6 % (50-75); Platelet Count 256 X10^3/uL (150-400); Red Cell Distribution Width 14.1 % (11.6-14.8); White Blood Cell Count 7.6 X10^3/uL (4.5-11.0)
[2023-05-23 06:03] LABS: Alanine Aminotransferase 36 IU/L (<50); Albumin 4.5 g/dL (3.5-5.0); Albumin Globulin Ratio 1.7 (1.0-2.8); Alkaline Phosphatase 85 U/L (38-126); Aspartate Aminotransferase 35 IU/L (17-59); Bilirubin Total 0.6 mg/dL (0.2-1.3); Blood Urea Nitrogen 23 mg/dL (9-20); Calcium 9.9 mg/dL (8.4-10.2); Carbon Dioxide 26 mmol/L (22-32); Chloride 104 mmol/L (98-107); Estimated Glomerular Filt Rate > 60 mL/min (>60); Globulin 2.7 g/dL (1.7-4.1); Glucose 113 mg/dL (70-100); Lipase 83 U/L (23-300); Potassium 4.8 mmol/L (3.4-5.1); Sodium 139 mmol/L (137-145); Total Protein 7.2 g/dL (6.3-8.2)
[2023-05-23 06:04] LABS: HEMOLYSIS 65 (0-50)
[2023-05-23 06:15] LABS: Troponin I < 0.012 ng/mL (0.01-0.034)
--- NOTE | 2023-05-23 06:52 | DI.US.S_ITS ---
PROCEDURE: US ABDOMEN LIMITED INDICATIONS: RUQ PAIN TECHNIQUE: Real-time focused scanning was performed of the abdomen, with image documentation. COMPARISON: [facility], CT, CT ABDOMEN PELVIS W CON, 05/23/2023, 6:18. [facility], US, US ABDOMEN COMPLETE, 05/31/2018, 20:27. FINDINGS: The liver demonstrates enlarged size. The liver demonstrates generalized moderately increased echogenicity. This decreases ultrasound sensitivity for detection of hepatic masses. Gallstones are seen within the gallbladder neck, with the largest measuring 8 mm. The gallbladder wall is minimally thickened at 3.3 mm. No specific pericholecystic fluid is seen. The sonographic Lemus sign is negative. There is no biliary dilatation, the common bile duct measures 5 mm. No significant pancreatic abnormality is seen on these images. IMPRESSION: Gallstones are seen within the gallbladder neck, with minimal gallbladder wall thickening. No additional sonographic signs of cholecystitis are seen. Enlarged, fatty liver. Dictated by: Heriberto Gutierrez M.D. on 05/23/2023 at 6:53 Approved by: Heriberto Gutierrez M.D. on 05/23/2023 at 6:55
--- NOTE | 2023-05-23 07:21 | PC.NURSE ---
US at bedside
== END 2023-05-23 08:17 | disposition home or self-care (01) ==
PROVIDERS: Emergency Medicine; Emergency Provider Emergency Medicine; PCP Family Medicine
DX: K80.20 Calculus of gallbladder without cholecystitis without obstruction (principal)
CPT/HCPCS: 36415; 74177; 76705; 80053; 81003; 83690; 84484; 85025; 93005; 93010; 96361; 96374; 96375; 99284; J1170; J2405; Q9967

== ENCOUNTER 2023-06-23 17:40 | Inpatient (IN) | payer MEDICARE, OTHER, SELFPAY ==
[2023-06-22 09:24] VITALS: BMI 33.7
[2023-06-23] VITALS (13 sets, daily range): BP systolic 132–152; BP diastolic 89–107; PULSE 72–104; RESP 16–24; TEMP 35.9–37.2; O2SAT 92–98; BMI 33.7
[2023-06-23] MEDS: LACTATED RINGERS 1,000 ML 42 ML IV (11:38)
--- NOTE | 2023-06-23 13:09 | PM.PREOP ---
Pre-operative Note COVID-19 COVID-19 status: Not tested Interval Note History & Physical reviewed/Exam performed by Physician: Yes Changes to H&P: No ASA Class (for procedural sedation): I
--- NOTE | 2023-06-23 14:29 | SUR.PHASEI ---
12 lead EKG ordered by anesthesia. [address] Yu at bedside and OK with patient being discharged with current 12 lead EKG NSR.
--- NOTE | 2023-06-23 14:31 | PM.EVENT ---
Event Note Date Patient Seen: 06/23/23 Time Patient Seen: 14:32 Event Note (Rapid Response, Code, or fall): The patient was brought back to the operating room for a scheduled laparoscopic cholecystectomy. After he had been intubated but before surgery started he had a 1 minute run of asystole. The surgery was canceled and he will be referred to a textiles sales representative for further workup. A 12 lead EKG was performed in the recovery room which was normal.
--- NOTE | 2023-06-23 14:39 | SUR.PHASEII ---
Alejandra Lancaster [employer] saw 3rd degree heart block in OR before surgery was started. Surgery canceled and patient brought to PACU. NSR in PACU.
[2023-06-23 14:56] LABS: Add Manual Diff / Slide Review NO; Basophils Absolute Auto 0 /uL (0-100); Basophils Percent Auto 0.8 % (0-2); Eosinophils Absolute Auto 200 /uL (0-450); Eosinophils Percent Auto 2.9 % (2-4); Hematocrit 44.2 % (41-53); Hemoglobin 15.1 g/dL (13.5-17.5); Lymphocytes Absolute Auto 2400 /uL (1100-4500); Lymphocytes Percent Auto 40.1 % (25-40); Mean Corpuscular HGB Conc 34.2 % (30-36); Mean Corpuscular Volume 87.7 fL (80-100); Monocytes Absolute Auto 500 /uL (0-900); Monocytes Percent Auto 7.6 % (3-14); Neutrophils Absolute Auto 2900 /uL (1500-7000); Neutrophils Percent Auto 48.6 % (50-75); Platelet Count 240 X10^3/uL (150-400); Red Blood Cell Count 5.04 X10^6/uL (4.5-5.9); Red Cell Distribution Width 14.5 % (11.6-14.8); White Blood Cell Count 5.9 X10^3/uL (4.5-11.0)
[2023-06-23 15:07] LABS: BUN Creatinine Ratio 16.1 (6-22); Blood Urea Nitrogen 14 mg/dL (9-20); Calcium 9.1 mg/dL (8.4-10.2); Carbon Dioxide 27 mmol/L (22-32); Chloride 104 mmol/L (98-107); Creatine Kinase 62 U/L (55-170); Estimated Glomerular Filt Rate > 60 mL/min (>60); Glucose 102 mg/dL (70-100); HEMOLYSIS < 15 (0-50); Potassium 5.1 mmol/L (3.4-5.1); Sodium 137 mmol/L (137-145)
[2023-06-23 15:18] LABS: Troponin I < 0.012 ng/mL (0.01-0.034)
--- NOTE | 2023-06-23 15:22 | SUR.PHASEII ---
1430 - Pt moved to Phase 2 recovery. Placed on conveyor monitor. Awake and alert. No complaints voiced. NSR HR 84, BP 138/76, o2 sat 98% on room air. at bedside. Hospitalist and cardiology consulted, awaiting disposition.
--- NOTE | 2023-06-23 16:08 | SUR.PHASEII ---
Placed patient on cardiac defibrillator monitor out of caution due to previous arrhythmia; patient remains asymptomatic; additional IV access obtained to right antecubital; at bedside. Awaiting transfer to hospital for cardiac monitoring and further workup.
--- NOTE | 2023-06-23 18:09 | DI.ECHO.S_ITS ---
Version: 1 Study ID: [id number] [place] [address] Name: TABATHA MA Study Date: 06/24/2023, 11: 16 AM : 1975 BP: 120 / 80 mmHg Gender: Male Height: 70 in Age: 47 Years Weight: 235 lb BSA: 2.24 mA? Ordering: MARIA LUZ RICH Referring: MARIA LUZ RICH Clinician: Venus Vogt Reason For Study: HEART BLOCK History: Summary Statements Normal sinus rhythm. Normal LV size and wall thickness; there is normal wall motion and LV systolic function. EF is 65-70%. Normal chamber sizes No valvular abnormalities. There is mid-cavity obstruction with peak velocity of 3.5 m/sec corresponding to peak gradient of 49 mm Hg. Rest gradient is normal. Recommendation - beta meg titration with goal HR <70 bpm - outpt cardiology follow up Procedure: A two-dimensional transthoracic echocardiogram with color flow and Doppler was performed. The study quality was technically adequate. There is no prior echocardiogram noted for this patient. The patient was in sinus rhythm with heart rates between 84-90 bpm during the exam. Left Ventricle: Left ventricular ejection fraction is estimated to be 70 +/- 5%. The left ventricle is hyperdynamic. The left ventricle is normal in size and wall thickness. An intracavitary gradient is suspected. Right Ventricle: The right ventricle is normal in size and function. Atria: There is no Doppler evidence for an interatrial shunt. The left atrial size is normal. Right atrial size is normal. Mitral Valve: There is no mitral regurgitation noted. The mitral valve is normal. Aortic Valve: No aortic regurgitation is present. There is no aortic valve stenosis. The aortic valve is trileaflet. The aortic valve opens well. Tricuspid Valve: There is trace tricuspid regurgitation. The tricuspid valve is normal in structure and function. Pulmonic Valve: There is trace pulmonic regurgitation. The pulmonic valve leaflets are thin and pliable; valve motion is normal. Great Vessels: The dimensions of the ascending aorta are normal. The aortic root is normal size. The inferior vena cava was not visualized. Pericardium/ Pleura: There is no pericardial effusion. There is no pleural effusion. 2D and M-Mode Measurements and Calculations LVIDd: 4.2 cm LVOT diam: 2.11 cm LVIDs: 2.7 cm Ao root diam: 3.7 cm IVSd: 0.98 cm asc Aorta Diam: 3.5 cm LVPWd: 0.96 cm Ao Arch Diam (Prox Trans): 3.0 cm LV jara. diameter/BSA (cm/m^2): 1.89 LV sys. diameter/BSA (cm/m^2): 1.22 RVD1 (basal): 3.5 cm RVD2 (mid): 3.3 cm TAPSE: 2.18 cm LA A4 area: 14.5 saw feeder? RA area: 11.9 saw feeder? LA A2 area: 17.1 saw feeder? RA long axis: 4.5 cm LA length (vol): 4.5 cm RA vol: 26.4 ml LA vol: 47.1 ml RA : 11.8 ml/mA? LA vol index: 21.1 ml/mA? Doppler Measurements and Calculations Ao V2 max: 160.2 cm/sec LVOT Max Keith: 157.2 cm/sec Ao V2 mean: 130.6 cm/sec LV V1 max P.9 mmHg Ao V2 VTI: 28.3 cm LV V1 VTI: 27.6 cm Ao max P.3 mmHg SV(LVOT): 96.2 ml Ao mean P.1 mmHg KINZA(I,D): 3.4 saw feeder? KINZA(V,D): 3.4 saw feeder? KINZA indexed to BSA (cm^2/m^2): 1.52 sev ratio: 0.97 MV E max keith: 78.3 cm/sec MV dec time: 0.23 sec MV A max keith: 99.1 cm/sec MV E/A: 0.79 Med Peak E' Keith: 6.7 cm/sec Lat Peak E' Keith: 7.6 cm/sec E/e' average: 11.0 PA V2 max: 144.2 cm/sec PA mean P.1 mmHg Electronically signed by: Stephanie Hartley M.D. 06/24/2023, 1: 21 PM
--- NOTE | 2023-06-23 18:28 | PC.NURSE ---
Patient arrived from PACU at 1820. A&OX4, ambulatory without any dizziness, light headedness, palpitations, CP, SOB, nausea, PATTERSON or any other symptoms. He is placed on telemetry, oriented to room, bed alarm placed, IVF running, frequent rounding.
[2023-06-23 18:35] LABS: Magnesium 1.9 mg/dL (1.6-2.3)
--- NOTE | 2023-06-23 18:37 | PM.EVENT ---
Event Note Date Patient Seen: 06/23/23 Event Note (Rapid Response, Code, or fall): Spoke to Dr. Dalton Encarnacion clinical quality assurance specialist livestock nutritionist from [facility]. He recommended overnight admission for observation and dischare with zio patch or follow up with cardiology as a outpatient for zio patch.
--- NOTE | 2023-06-23 19:07 | P.HP_ITS ---
History of Present Illness History of Present Illness Date Patient Seen: 06/23/23 Chief complaint: SDC Narrative: Luiz Greene is a 47yo M with PMH of depression, anxiety, HLD, GUILLERMO, GERD and kidney stones who presents from PACU as a direct admit for heart block. Patient was undergoing elective lap dmitry and while undergoing anesthesia for the procedure, his heart rhythm showed a possible 3rd degree heart block and then had a asystolic pause for several seconds and then resolved. Stat EKG was normal. He will be admitted overnight for observation, echo, and tele. Patient currently is asymptomatic and has no complaints. He denies CP, SOB, NV, abd pain or diarrhea. [facility] Medical History (Updated 06/22/23 @ 09:25 by La Pike RN) Kidney stones Sleep apnea GERD (gastroesophageal reflux disease) Anxiety Depression Surgical History (Updated 06/22/23 @ 09:27 by La Pike RN) H/O vasectomy (2002) Hx of appendectomy (2002) History of tonsillectomy (2002) Social History marital status: household members: spouse Smoking Status: Former smoker alcohol intake: current Meds Home Medications and Allergies Home Medications Medication Instructions Recorded Confirmed Type No Known Home Medications 06/23/23 06/23/23 History Allergies Allergy/AdvReac Type Severity Reaction Status Date / Time No Known Drug Allergies Allergy Verified 06/23/23 11:22 Review of Systems Review of Systems Narrative: All other systems reviewed with the patient and are negative unless otherwise stated. Exam Vital Signs (past 8 hours): - 06/23/23 11:34 06/23/23 14:10 06/23/23 14:15 Temperature 96.8 F L 98 F Pulse Rate 72 100 H 97 H Respiratory Rate 24 17 18 Blood Pressure 137/97 H 135/99 H 137/97 H Pulse Oximetry 96 93 94 Oxygen Delivery Method Room Air Room Air Room Air Oxygen Flow Rate 06/23/23 14:20 06/23/23 14:30 06/23/23 14:45 Temperature 98.5 F Pulse Rate 94 H 95 H 94 H Respiratory Rate 16 20 20 Blood Pressure 141/98 H 141/99 H 138/99 H Pulse Oximetry 94 96 94 Oxygen Delivery Method Room Air Room Air Room Air Oxygen Flow Rate 06/23/23 15:00 12/12/23 15:13 06/23/23 16:37 Temperature 98.9 F Pulse Rate 87 86 83 Respiratory Rate 19 18 16 Blood Pressure 135/97 H 134/97 H 132/94 H Pulse Oximetry 94 94 98 Oxygen Delivery Method Room Air Room Air Room Air Oxygen Flow Rate 06/23/23 18:01 06/23/23 18:43 Temperature 97.6 F 96.7 F L Pulse Rate 89 93 H Respiratory Rate 19 17 Blood Pressure 135/100 H 151/107 H Pulse Oximetry 96 96 Oxygen Delivery Method Room Air Oxygen Flow Rate 0 Oxygen Delivery Method Room Air Oxygen Flow Rate 0 Narrative Exam Narrative: GEN: no acute distress HEENT: moist mucous membranes, PERRL NECK: trachea midline, no JVD CV: regular rate and rhythm, no murmurs PULM: clear bilaterally ABD: soft, nontender, nondistended, no organomegaly EXT: warm and well perfused with no edema NEURO: awake, alert, oriented, no focal deficits Objective Labs 06/24/23 08:31 06/24/23 05:15 Labs: Laboratory Results - last 24 hr 06/23/23 06/23/23 14:50 18:08 WBC 5.9 RBC 5.04 Hgb 15.1 Hct 44.2 MCV 87.7 MCH 30.0 MCHC 34.2 RDW 14.5 Plt Count 240 Neut % (Auto) 48.6 L Lymph % (Auto) 40.1 H Dixon % (Auto) 7.6 Eos % (Auto) 2.9 Baso % (Auto) 0.8 Neut # (Auto) 2900 Lymph # (Auto) 2400 Dixon # (Auto) 500 Eos # (Auto) 200 Baso # (Auto) 0 Sodium 137 Potassium 5.1 Chloride 104 Carbon Dioxide 27 BUN 14 Creatinine 0.87 Estimated GFR > 60 BUN/Creatinine Ratio 16.1 Glucose 102 H Calcium 9.1 Magnesium 1.9 Total Creatine Kinase 62 Troponin I < 0.012 Assessment & Plan Assessment & Plan narrative: # possible heart conduction abnormality -while receiving anesthesia for lap dmitry patient had what appeared to be third- degree heart block then asystole which spontaneously resolved. Lap dmitry aborted. -per preform plate maker at [facility], [facility] observation overnight and then dc with outpatient Zio patch -spoke with EP preform plate maker at [facility] who agreed with plan, thinks could have been vasovagal -echo ordered -electrolytes and trop normal -tele -will arrange outpatient Zio # anxiety and depression -continue lexapro # HLD -continue statin Code status is full code. DVT prophylaxis with SCDs. Proxy is spouse J Luis. I have reviewed home meds and used all available resources to reconcile the home meds. Case discussed with ED physician/APC and patient will be admitted to the hospitalist service for further workup and management. This patient will be admitted as observation and will require less than 2 midnights of hospital time to treat heart block.
[2023-06-23] MEDS: ATORVASTATIN 20 MG TABLET 40 MG PO (20:00)
[2023-06-24 03:00] VITALS: BP 120/80; PULSE 95; RESP 16; TEMP 36.2; O2SAT 94
[2023-06-24 05:56] LABS: Add Manual Diff / Slide Review NO; Basophils Absolute Auto 0 /uL (0-100); Basophils Percent Auto 0.3 % (0-2); Eosinophils Absolute Auto 0 /uL (0-450); Hematocrit 46.1 % (41-53); Hemoglobin 15.8 g/dL (13.5-17.5); Lymphocytes Absolute Auto 2300 /uL (1100-4500); Lymphocytes Percent Auto 15.9 % (25-40); Mean Corpuscular HGB Conc 34.2 % (30-36); Mean Corpuscular Hemoglobin 29.8 PG (26-34); Monocytes Absolute Auto 900 /uL (0-900); Neutrophils Absolute Auto 11500 /uL (1500-7000); Neutrophils Percent Auto 77.8 % (50-75); Platelet Count 320 X10^3/uL (150-400); Red Blood Cell Count 5.29 X10^6/uL (4.5-5.9); Red Cell Distribution Width 14.4 % (11.6-14.8); White Blood Cell Count 14.8 X10^3/uL (4.5-11.0)
[2023-06-24 06:09] LABS: BUN Creatinine Ratio 24.6 (6-22); Blood Urea Nitrogen 17 mg/dL (9-20); Calcium 10.1 mg/dL (8.4-10.2); Carbon Dioxide 21 mmol/L (22-32); Chloride 103 mmol/L (98-107); Estimated Glomerular Filt Rate > 60 mL/min (>60); Glucose 115 mg/dL (70-100); HEMOLYSIS < 15 (0-50); Potassium 4.4 mmol/L (3.4-5.1); Sodium 135 mmol/L (137-145)
[2023-06-24 08:00] VITALS: BP 140/92; PULSE 83; RESP 18; TEMP 36.1; O2SAT 93
[2023-06-24] MEDS: ESCITALOPRAM 10 MG TABLET PO (08:30)
[2023-06-24 08:42] LABS: Add Manual Diff / Slide Review NO; Basophils Absolute Auto 100 /uL (0-100); Basophils Percent Auto 0.6 % (0-2); Eosinophils Absolute Auto 0 /uL (0-450); Eosinophils Percent Auto 0.2 % (2-4); Hematocrit 45.5 % (41-53); Hemoglobin 15.5 g/dL (13.5-17.5); Lymphocytes Absolute Auto 2600 /uL (1100-4500); Lymphocytes Percent Auto 19.1 % (25-40); Mean Corpuscular HGB Conc 34.2 % (30-36); Mean Corpuscular Hemoglobin 29.7 PG (26-34); Mean Corpuscular Volume 86.8 fL (80-100); Monocytes Absolute Auto 900 /uL (0-900); Monocytes Percent Auto 6.4 % (3-14); Neutrophils Absolute Auto 10200 /uL (1500-7000); Neutrophils Percent Auto 73.7 % (50-75); Platelet Count 317 X10^3/uL (150-400); Red Blood Cell Count 5.24 X10^6/uL (4.5-5.9); Red Cell Distribution Width 14.5 % (11.6-14.8); White Blood Cell Count 13.9 X10^3/uL (4.5-11.0)
--- NOTE | 2023-06-24 09:06 | P.PN_ITS ---
Exam Vital Signs (past 8 hours): - 06/24/23 03:00 Temperature 97.2 F L Pulse Rate 95 H Respiratory Rate 16 Blood Pressure 120/80 Pulse Oximetry 94 Oxygen Flow Rate 0 Oxygen Delivery Method Room Air Oxygen Flow Rate 0 Narrative Exam Narrative: please see cardiac telemetry strip from OR for more information. approx 5 minutes after induction of anesthesia, without any surgical stimulus pt HR audibly decreased. monitor showed regular p waves without QRS complex. pt initiating own breaths on SIMV with PS. MD Yu immediately notified. checked right radial pulse weak, checked carotid pulse. weak but palpable. checked monitors for functionality. gave 0.2 mg glycopyrolate, 10mg ephedrine. turned off anesthesic gas, and gave 100% OXYGEN. pt resumed prevous rhythm of NSR. placed pacing pads. decision made to abort the procedure. pt extubated awake and transfered to PACU. stat EKG and labs ordered. consult hospitalist and call center coordinator. Objective Labs 06/24/23 08:31 06/24/23 05:15 Labs: Laboratory Results - last 24 hr 06/23/23 06/23/23 06/24/23 14:50 18:08 05:15 WBC 5.9 14.8 H D RBC 5.04 5.29 Hgb 15.1 15.8 Hct 44.2 46.1 MCV 87.7 87.0 MCH 30.0 29.8 MCHC 34.2 34.2 RDW 14.5 14.4 Plt Count 240 320 Neut % (Auto) 48.6 L 77.8 H D Lymph % (Auto) 40.1 H 15.9 L D Whitley % (Auto) 7.6 6.0 Eos % (Auto) 2.9 0.0 L Baso % (Auto) 0.8 0.3 Neut # (Auto) 2900 93826 H Lymph # (Auto) 2400 2300 Whitley # (Auto) 500 900 Eos # (Auto) 200 0 Baso # (Auto) 0 0 Sodium 137 135 L Potassium 5.1 4.4 Chloride 104 103 Carbon Dioxide 27 21 L BUN 14 17 Creatinine 0.87 0.69 Estimated GFR > 60 > 60 BUN/Creatinine Ratio 16.1 24.6 H Glucose 102 H 115 H Calcium 9.1 10.1 Magnesium 1.9 Total Creatine Kinase 62 Troponin I < 0.012 06/24/23 08:31 WBC 13.9 H RBC 5.24 Hgb 15.5 Hct 45.5 MCV 86.8 MCH 29.7 MCHC 34.2 RDW 14.5 Plt Count 317 Neut % (Auto) 73.7 Lymph % (Auto) 19.1 L Whitley % (Auto) 6.4 Eos % (Auto) 0.2 L Baso % (Auto) 0.6 Neut # (Auto) 27380 H Lymph # (Auto) 2600 Whitley # (Auto) 900 Eos # (Auto) 0 Baso # (Auto) 100 Sodium Potassium Chloride Carbon Dioxide BUN Creatinine Estimated GFR BUN/Creatinine Ratio Glucose Calcium Magnesium Total Creatine Kinase Troponin I [facility] Medical History (Updated 06/22/23 @ 09:25 by La Pike RN) Kidney stones Sleep apnea GERD (gastroesophageal reflux disease) Anxiety Depression Surgical History (Updated 06/22/23 @ 09:27 by La Pike RN) H/O vasectomy (2002) Hx of appendectomy (2002) History of tonsillectomy (2002) Social History marital status: household members: spouse Smoking Status: Former smoker alcohol intake: current
[2023-06-24 09:12] LABS: Procalcitonin 0.07 ng/mL (<0.5)
[2023-06-24 11:56] VITALS: BP 122/77; PULSE 87; RESP 18; TEMP 36.5; O2SAT 92
--- NOTE | 2023-06-24 15:38 | CM.DANOTE ---
Discharge Planning/Care Management CM Discharge Assessment Start: 06/24/23 15:33 Freq: Status: Active Protocol: Document 06/24/23 15:35 DEBBIE (Rec: 06/24/23 15:38 DEBBIE [id number]) Discharge Planning Assessment Assigned Flatwork Washer ZAHEER Savage DPOA/Assigned Designee Name Michelle Greene, spouse Contact Information [phone] Advance Directives? No History Provided By Medical Record Prior Living Arrangements House Household Members spouse Type of transporation used prior to Drives own vehicle admit Independent with ADL's Yes Is patient alert and oriented? Yes Barriers to Discharge No Comment Came in for his scheduled lap dmitry and had 1 minute run of asystole after being intubated . OBS on the acute care floor overnight for monitoring, likely return home this evening vs tomorrow w/ recommendation for close outpatient follow up. 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
[2023-06-24 16:37] VITALS: BP 147/79; PULSE 84; RESP 15; TEMP 36.2; O2SAT 84
--- NOTE | 2023-06-24 17:43 | P.PN_ITS ---
Subjective Subjective Interval history: Patient's echo showed HCOM. Cardiology contacted and recommended transfer to [facility] for EP cardiology consult and possible pacemaker placement. Transfer initiated and patient and briefed on his condition and the next steps. He otherwise feels well. Notes that in hindsight he has had several months of lightheadedness/presyncope when standing too quickly, breathing out too quickly, or raising his arms. He was also previously on a beta meg (he thinks prorpanolol) for anxiety and his symptoms worsened after he stopped the BB months ago. Exam Vital Signs (past 8 hours): - 06/24/23 11:56 06/24/23 16:37 Temperature 97.7 F 97.1 F L Pulse Rate 87 84 Respiratory Rate 18 15 Blood Pressure 122/77 147/79 H Pulse Oximetry 92 84 L Oxygen Delivery Method Room Air Oxygen Flow Rate 0 Narrative Exam Narrative: GEN: no acute distress HEENT: moist mucous membranes, PERRL NECK: trachea midline, no JVD CV: regular rate and rhythm, holosystolic murmur and apex which increases with valsalva PULM: clear bilaterally ABD: soft, nontender, nondistended, no organomegaly EXT: warm and well perfused with no edema NEURO: awake, alert, oriented, no focal deficits Objective Labs 06/24/23 08:31 06/24/23 05:15 Labs: Laboratory Results - last 24 hr 06/23/23 06/24/23 06/24/23 18:08 05:15 08:31 WBC 14.8 H D 13.9 H RBC 5.29 5.24 Hgb 15.8 15.5 Hct 46.1 45.5 MCV 87.0 86.8 MCH 29.8 29.7 MCHC 34.2 34.2 RDW 14.4 14.5 Plt Count 320 317 Neut % (Auto) 77.8 H D 73.7 Lymph % (Auto) 15.9 L D 19.1 L [place] % (Auto) 6.0 6.4 Eos % (Auto) 0.0 L 0.2 L Baso % (Auto) 0.3 0.6 Neut # (Auto) 52428 H 92963 H Lymph # (Auto) 2300 2600 [place] # (Auto) 900 900 Eos # (Auto) 0 0 Baso # (Auto) 0 100 Sodium 135 L Potassium 4.4 Chloride 103 Carbon Dioxide 21 L BUN 17 Creatinine 0.69 Estimated GFR > 60 BUN/Creatinine Ratio 24.6 H Glucose 115 H Calcium 10.1 Magnesium 1.9 Procalcitonin 0.07 PFSH Medical History (Updated 06/22/23 @ 09:25 by La Pike RN) Kidney stones Sleep apnea GERD (gastroesophageal reflux disease) Anxiety Depression Surgical History (Updated 06/22/23 @ 09:27 by La Pike RN) H/O vasectomy (2002) Hx of appendectomy (2002) History of tonsillectomy (2002) Social History marital status: household members: spouse Smoking Status: Former smoker alcohol intake: current Assessment & Plan Assessment & Plan narrative: # newly diagnosed hypertrophic obstructive cardiomyopathy -while receiving anesthesia for lap dmitry patient had what appeared to be third- degree heart block then asystole which spontaneously resolved. Lap dmitry aborted. -echo ordered and shows LV obstruction with peak velocity 3.5m/s and peak gradient of 49. Holosystolic murmur on exam. -patient notes several months of presyncope when standing quickly, breathing out or raising arms above head. Said he took a BB for anxiety and these symptoms worsened after he stopped it months ago. -electrolytes and trop normal -tele normal -spoke with Dr. Hartley who read the echo and she said he has HCOM and recommended transfer to [facility] for EP cardiology consultation -transfer initiated to [facility], they will have a bed on 06/25 # anxiety and depression -continue lexapro # HLD -continue statin Code status is full code. DVT prophylaxis with SCDs. Proxy is spouse J Luis. I have reviewed home meds and used all available resources to reconcile the home meds. Dispo: Pending transfer to [facility] on 06/25 likely.
[2023-06-24 20:00] VITALS: BP 145/93; PULSE 93; RESP 16; TEMP 36.2; O2SAT 92
[2023-06-24] MEDS: ATORVASTATIN 20 MG TABLET 40 MG PO (21:06)
[2023-06-25] VITALS: BP 136/74; PULSE 93; RESP 16; TEMP 36.2; O2SAT 92
[2023-06-25 04:00] VITALS: BP 129/81; PULSE 63; RESP 16; TEMP 36.1; O2SAT 94
[2023-06-25 04:54] LABS: Add Manual Diff / Slide Review NO; Basophils Absolute Auto 100 /uL (0-100); Basophils Percent Auto 0.7 % (0-2); Eosinophils Absolute Auto 100 /uL (0-450); Eosinophils Percent Auto 1.7 % (2-4); Hematocrit 44.1 % (41-53); Hemoglobin 14.9 g/dL (13.5-17.5); Lymphocytes Absolute Auto 3900 /uL (1100-4500); Lymphocytes Percent Auto 45.5 % (25-40); Mean Corpuscular HGB Conc 33.7 % (30-36); Mean Corpuscular Hemoglobin 29.6 PG (26-34); Mean Corpuscular Volume 87.7 fL (80-100); Monocytes Absolute Auto 700 /uL (0-900); Monocytes Percent Auto 8.3 % (3-14); Neutrophils Absolute Auto 3800 /uL (1500-7000); Neutrophils Percent Auto 43.8 % (50-75); Platelet Count 269 X10^3/uL (150-400); Red Blood Cell Count 5.03 X10^6/uL (4.5-5.9); Red Cell Distribution Width 14.4 % (11.6-14.8); White Blood Cell Count 8.6 X10^3/uL (4.5-11.0)
[2023-06-25 05:01] LABS: BUN Creatinine Ratio 30.3 (6-22); Blood Urea Nitrogen 23 mg/dL (9-20); Calcium 9.4 mg/dL (8.4-10.2); Carbon Dioxide 24 mmol/L (22-32); Chloride 105 mmol/L (98-107); Estimated Glomerular Filt Rate > 60 mL/min (>60); Glucose 102 mg/dL (70-100); HEMOLYSIS < 15 (0-50); Potassium 4.3 mmol/L (3.4-5.1); Sodium 137 mmol/L (137-145)
[2023-06-25 07:43] VITALS: BP 145/105; PULSE 68; RESP 20; TEMP 36.1
[2023-06-25 08:00] VITALS: O2SAT 94
[2023-06-25] MEDS: ESCITALOPRAM 10 MG TABLET PO (08:08)
[2023-06-25 12:00] VITALS: BP 116/80; PULSE 71; RESP 16; TEMP 36.2; O2SAT 94
[2023-06-25] MEDS: CALCIUM CARBONATE 500 MG TAB 1000 MG PO (15:52)
[2023-06-25 16:00] VITALS: BP 124/83; PULSE 80; RESP 16; TEMP 36.6; O2SAT 95
--- NOTE | 2023-06-25 16:59 | PM.DS.1 ---
History of Present Illness History of Present Illness Date Patient Seen: 06/25/23 Time Patient Seen: 17:13 Chief complaint: SDC Narrative: Per admitting provider, Luiz Greene is a 47yo M with PMH of depression, anxiety, HLD, GUILLERMO, GERD and kidney stones who presents from PACU as a direct admit for heart block. Patient was undergoing elective lap dmitry and while undergoing anesthesia for the procedure, his heart rhythm showed a possible 3rd degree heart block and then had a asystolic pause for several seconds and then resolved. Stat EKG was normal. He will be admitted overnight for observation, echo, and tele. Patient currently is asymptomatic and has no complaints. He denies CP, SOB, NV, abd pain or diarrhea. Discharge Providers Provider Date of admission: 06/24/23 10:22 Discharge Date: 06/25/23 Primary care physician: Nigel Limon MD Discharge provider: Tanner Elkins DO Summary Hospital Course Discharge Diagnosis: # newly diagnosed hypertrophic obstructive cardiomyopathy # anxiety and depression # HLD Hospital Course: This is a 47 year old male who was undergoing outpatient laparoscopic cholecystectomy for symptomatic gallstones, with induction of anesthesia patient developed a 3rd degree heart block per report along with a 14 second period of asystole before HR returned to normal. He was admitted for further evaluation, and his echocardiogram showed HOCM with LV obstruction (peak velocity of 3.5 m/s and a peak gradient of 49). Patient did endorse several months of pre-syncopal type symptoms. After discussion with cardiology, he was recommended for transfer to [facility] for EP cardiology consultation. He was asymptomatic during his stay, with no events noted on telemetry monitoring. No beta meg was initiated prior to transfer, will defer to cardiology consultation at accepting facility. Time Spent with Patient Time spent: Greater than 30 minutes Exam Vital Signs (past 8 hours): - 06/25/23 12:00 06/25/23 16:00 Temperature 97.1 F L 98 F Pulse Rate 71 80 Respiratory Rate 16 16 Blood Pressure 116/80 124/83 Pulse Oximetry 94 95 Oxygen Flow Rate 0 0 Oxygen Delivery Method Room Air Oxygen Flow Rate 0 Narrative Exam Narrative: GEN: no acute distress HEENT: moist mucous membranes, PERRL NECK: trachea midline, no JVD CV: regular rate and rhythm, holosystolic murmur PULM: clear bilaterally ABD: soft, nontender, nondistended, no organomegaly EXT: warm and well perfused with no edema NEURO: awake, alert, oriented, no focal deficits Objective Labs 06/25/23 04:30 06/25/23 04:30 Labs: Laboratory Results - last 24 hr 06/25/23 04:30 WBC 8.6 RBC 5.03 Hgb 14.9 Hct 44.1 MCV 87.7 MCH 29.6 MCHC 33.7 RDW 14.4 Plt Count 269 Neut % (Auto) 43.8 L D Lymph % (Auto) 45.5 H D Fisher % (Auto) 8.3 Eos % (Auto) 1.7 L Baso % (Auto) 0.7 Neut # (Auto) 3800 Lymph # (Auto) 3900 Fisher # (Auto) 700 Eos # (Auto) 100 Baso # (Auto) 100 Sodium 137 Potassium 4.3 Chloride 105 Carbon Dioxide 24 BUN 23 H Creatinine 0.76 Estimated GFR > 60 BUN/Creatinine Ratio 30.3 H Glucose 102 H Calcium 9.4 PFSH Medical History (Updated 06/22/23 @ 09:25 by La Pike RN) Kidney stones Sleep apnea GERD (gastroesophageal reflux disease) Anxiety Depression Surgical History (Updated 06/22/23 @ 09:27 by La Pike RN) H/O vasectomy (2002) Hx of appendectomy (2002) History of tonsillectomy (2002) Social History marital status: household members: spouse Smoking Status: Former smoker alcohol intake: current Discharge Plan Discharge Plan Patient Disposition: [facility] Provider Discharge Comment: A referral will be placed for you to see a grazing examiner for further evaluation of your cardiac function. We will schedule your laparoscopic cholecystectomy once you are cleared by a grazing examiner Discharge Health Status Multidrug resistant organism: No MDRO Precautions: [place] Diet/Activity/Treatments Diet: Diet as Tolerated and Low-sodium Liquid consistency: Normal/Thin Food texture: Regular Activity: As tolerated, no restrictions Visit Report/Discharge Packet Stand Alone Forms: Patient Portal/API, Surgery Discharge Discharge Data Primary Care Provider: Nigel Limon
--- NOTE | 2023-06-25 17:47 | PC.NURSE ---
Report called to Arminda HERNANDEZ at [facility] and all questions answered. Pt has signed forms, packet is ready. Pt will be d/c'd out via ambulance to [facility] when transport arrives with all belongings.
--- NOTE | 2023-06-25 19:06 | PC.NURSE ---
Report given to Ambulance Personnel. Pt transferred to [facility] and was transported out via [facility] by ambulance personnel with all belongings.
== END 2023-06-25 19:08 | disposition short-term general hospital (02) | DRG 315 ==
LOC: OR 06-24 11:28 → AC 06-24 11:28
PROVIDERS: Surgery; Admitting Provider Student in an Organized Health Care Education/Training Program; PCP Family Medicine; Referring Provider Student in an Organized Health Care Education/Training Program; Visit Provider Student in an Organized Health Care Education/Training Program
PROC: 0FT44ZZ Resection of Gallbladder, Percutaneous Endoscopic Approach (ICD-10-PCS; CPT 47562; principal; 2023-06-23 11:30)
DX: I42.1 Obstructive hypertrophic cardiomyopathy (principal); I44.2 Atrioventricular block, complete; K80.20 Calculus of gallbladder without cholecystitis without obstruction; Z53.09 Procedure and treatment not carried out because of other contraindication; F41.9 Anxiety disorder, unspecified; F32.A Depression, unspecified; E78.5 Hyperlipidemia, unspecified; G47.33 Obstructive sleep apnea (adult) (pediatric); K21.9 Gastro-esophageal reflux disease without esophagitis; Z87.891 Personal history of nicotine dependence
CPT/HCPCS: 36415; 80048; 82550; 83735; 84145; 84484; 85025; 93005; 93010; 93306; G0378; J1100; J2250; J2405; J2704; J3010

== ENCOUNTER 2023-07-30 21:15 | Emergency (ER) | payer MEDICARE, OTHER, SELFPAY ==
[2023-06-23 18:31] VITALS: BMI 33.7
[2023-07-30] VITALS (8 sets, daily range): BP systolic 113–145; BP diastolic 76–100; PULSE 81–96; RESP 16–27; TEMP 36.9; O2SAT 92–97; BMI 34.4
--- NOTE | 2023-07-30 21:45 | ED.GENADULT ---
HPI - General Adult General Chief complaint: Abdominal Pain Stated complaint: difficulty breathing, gallbladder pain Time Seen by Provider: 07/30/23 21:32 Source: patient Mode of arrival: Ambulatory History of Present Illness HPI narrative: Patient is a 47-year-old male. Has a known history of cholelithiasis. There was discussion about removing his gallbladder in the past however he developed other medical issues that needed attention. He states that yesterday he had right upper quadrant abdominal pain consistent with his prior history of biliary colic. He states that today he is still having those symptoms but he is also having epigastric discomfort. No fevers. Has not had a bowel movement in a couple days but admits that he has been taking pain medication. No urinary symptoms. No fevers. Pain medication at home has been minimally effective. The discomfort is causing him to be short of breath. Related Data Home Medications Medication Instructions Recorded Confirmed No Known Home Medications 06/23/23 06/23/23 Allergies Allergy/AdvReac Type Severity Reaction Status Date / Time No Known Drug Allergies Allergy Verified 07/30/23 21:26 Review of Systems Constitutional Constitutional: Reports system reviewed and no additional complaints, except as documented Respiratory Respiratory: Reports system reviewed and no additional complaints, except as documented Gastrointestinal Gastrointestinal: Reports system reviewed and no additional complaints, except as documented Musculoskeletal Musculoskeletal: Reports system reviewed and no additional complaints, except as documented Integumentary/Breasts Skin/Breast: Reports system reviewed and no additional complaints, except as documented Neurologic Neurologic: Reports system reviewed and no additional complaints, except as documented Patient History Medical History Kidney stones Sleep apnea GERD (gastroesophageal reflux disease) Anxiety Depression Surgical History (Updated 06/22/23 @ 09:27 by La Pike RN) H/O vasectomy (2002) Hx of appendectomy (2002) History of tonsillectomy (2002) Social History marital status: household members: spouse Smoking Status: Former smoker alcohol intake: current Smoking Status: Former smoker tobacco type: cigarettes alcohol intake frequency: holidays/special occasions only Alcohol type: hard liquor Substance Use Type: marijuana Exam Initial Vital Signs Initial Vital Signs: Vital Signs Pulse Rate 96 H 07/30/23 21:19 Blood Pressure 133/92 H 07/30/23 21:19 Pulse Oximetry 97 07/30/23 21:19 Oxygen Delivery Method Room Air 07/30/23 21:19 HENMT Head: normal to inspection and normocephalic Resp Effort & Inspection: normal respiratory effort Auscultation: clear to auscultation bilaterally Cardio Rate: regular rate Rhythm: regular rhythm GI Inspection: normal to inspection and non-distended Palpation: soft, firm and tender (Right upper quadrant) Skin General: no rashes or lesions noted Neuro General: patient alert and patient awake Course Orders Ordered: ED Orders 07/30/23 21:27 Comprehensive Metabolic Panel Stat D Dimer Stat Lipase Stat Troponin & CK Cardiac Panel Stat 07/30/23 21:38 EKG-12 Lead Stat 07/30/23 21:46 US abdomen limited Stat 07/30/23 22:07 Urine Culture Stat Urine Microscopic Stat 07/30/23 22:15 Complete Blood Count AUTO DIFF Stat 07/30/23 23:16 XR chest 1V Stat 07/30/23 23:23 Respiratory Panel (Film Array) Stat 07/30/23 23:42 CT angio chest PE protocol Stat Discontinued Medications Ketorolac Tromethamine (Ketorolac 30 Mg/Ml Vial) 30 mg IV NOW ONE Stop: 07/30/23 22:14 Last Admin: 07/30/23 22:18 Dose: 30 mg Documented By: KAYLAH Ondansetron HCl (Ondansetron 4 Mg Odt) 4 mg PO NOW PRN PRN Reason: Nausea And Vomiting Ondansetron HCl (Ondansetron 4 Mg/2 Ml Inj) 4 mg IV NOW PRN PRN Reason: Nausea And Vomiting Last Admin: 07/30/23 22:12 Dose: 4 mg Documented By: NIK Vital Signs Vital signs: Vital Signs - 8 hr 07/30/23 21:19 07/30/23 21:19 07/30/23 21:21 Temperature 98.4 F Pulse Rate 96 H 89 Respiratory Rate 18 Blood Pressure 133/92 H 133/92 H Pulse Oximetry 97 97 Oxygen Delivery Method Room Air Room Air 07/30/23 21:30 07/30/23 22:00 07/30/23 22:09 Temperature Pulse Rate 88 86 84 Respiratory Rate 27 H 16 25 H Blood Pressure Pulse Oximetry 95 94 95 Oxygen Delivery Method Room Air Room Air Room Air 07/30/23 22:09 07/30/23 22:30 01/18/24 22:30 Temperature Pulse Rate 82 Respiratory Rate 23 Blood Pressure 138/94 H 145/100 H Pulse Oximetry 92 Oxygen Delivery Method Room Air 07/30/23 23:00 07/30/23 23:00 07/30/23 23:30 Temperature Pulse Rate 84 81 Respiratory Rate 23 Blood Pressure 123/76 Pulse Oximetry 93 92 Oxygen Delivery Method Room Air Room Air 07/30/23 23:30 07/31/23 00:02 07/31/23 00:30 Temperature Pulse Rate 81 82 Respiratory Rate Blood Pressure 113/76 Pulse Oximetry 98 93 Oxygen Delivery Method Room Air Room Air 07/31/23 01:04 Temperature 97.9 F Pulse Rate 72 Respiratory Rate 16 Blood Pressure 115/79 Pulse Oximetry 93 Oxygen Delivery Method Room Air Medical Decision Making Medical Records Medical records reviewed: Yes I reviewed the patient's medical records. Lab Data Lab results reviewed: Yes I reviewed the patient's lab results. 07/30/23 22:15 07/30/23 21:27 Labs: Lab Results 07/30/23 07/30/23 07/30/23 Range/Units 21:27 22:07 22:15 WBC 9.7 (4.5-11.0) X10^3/uL RBC 5.07 (4.5-5.9) X10^6/uL Hgb 15.2 (13.5-17.5) g/dL Hct 44.1 (41-53) % MCV 87.0 (80-100) fL MCH 29.9 (26-34) PG MCHC 34.4 (30-36) % RDW 14.6 (11.6-14.8) % Plt Count 263 (150-400) X10^3/uL Neut % (Auto) 65.6 (50-75) % Lymph % (Auto) 20.1 L (25-40) % [place] % (Auto) 11.3 (3-14) % Eos % (Auto) 2.3 (2-4) % Baso % (Auto) 0.7 (0-2) % Neut # (Auto) 6400 (2700-5199) /uL Lymph # (Auto) 1900 (7180-9881) /uL [place] # (Auto) 1100 H (0-900) /uL Eos # (Auto) 200 (0-450) /uL Baso # (Auto) 100 (0-100) /uL D-Dimer 864 H (<500) ng/ml Sodium 135 L (137-145) mmol/L Potassium 4.1 (3.4-5.1) mmol/L Chloride 98 (98-107) mmol/L Carbon Dioxide 26 (22-32) mmol/L BUN 11 (9-20) mg/dL Creatinine 0.78 (0.66-1.25) mg/dL Estimated GFR > 60 (>60) mL/min BUN/Creatinine Ratio 14.1 (6-22) Glucose 119 H (70-100) mg/dL Calcium 10.1 (8.4-10.2) mg/dL Total Bilirubin 1.4 H (0.2-1.3) mg/dL AST 27 (17-59) IU/L ALT 58 H (<50) IU/L Alkaline Phosphatase 82 (38-126) U/L Total Creatine Kinase 72 (55-170) U/L Troponin I < 0.012 (0.01-0.034) ng/mL Total Protein 8.0 (6.3-8.2) g/dL Albumin 4.7 (3.5-5.0) g/dL Globulin 3.3 (1.7-4.1) g/dL Albumin/Globulin Ratio 1.4 (1.0-2.8) Lipase 27 (23-300) U/L Urine RBC 0-1/hpf (0-5/HPF) Urine WBC None seen (0-5/HPF) Ur Squamous Epith Cells None seen (0-5/HPF) Urine Bacteria None seen (None) Chlamy pneumoniae PCR (Not Detect) Adenovirus (PCR) (Not Detect) B.parapertussis DNA PCR (Not Detecte) Coronavirus OC43 (PCR) (Not Detect) Coronavirus HKU1 (PCR) (Not Detect) Coronavirus 229E (PCR) (Not Detect) SARS-CoV-2 (PCR) (Not Detecte) Coronavirus NL63 (PCR) (Not Detect) Human Metapneumovir PCR (Not Detect) Influenza Type A (PCR) (Not Detect) Influenza Type B (PCR) (Not Detect) M. pneumoniae (PCR) (Not Detect) Parainfluenza 1 (PCR) (Not Detect) Parainfluenza 2 (PCR) (Not Detect) Parainfluenza 3 (PCR) (Not Detect) Parainfluenza 4 (PCR) (Not Detect) RSV (PCR) (Not Detect) Entero/Rhino (PCR) (Not Detect) 07/30/23 Range/Units 23:23 WBC (4.5-11.0) X10^3/uL RBC (4.5-5.9) X10^6/uL Hgb (13.5-17.5) g/dL Hct (41-53) % MCV (80-100) fL MCH (26-34) PG MCHC (30-36) % RDW (11.6-14.8) % Plt Count (150-400) X10^3/uL Neut % (Auto) (50-75) % Lymph % (Auto) (25-40) % [place] % (Auto) (3-14) % Eos % (Auto) (2-4) % Baso % (Auto) (0-2) % Neut # (Auto) (3202-4046) /uL Lymph # (Auto) (5720-8080) /uL [place] # (Auto) (0-900) /uL Eos # (Auto) (0-450) /uL Baso # (Auto) (0-100) /uL D-Dimer (<500) ng/ml Sodium (137-145) mmol/L Potassium (3.4-5.1) mmol/L Chloride (98-107) mmol/L Carbon Dioxide (22-32) mmol/L BUN (9-20) mg/dL Creatinine (0.66-1.25) mg/dL Estimated GFR (>60) mL/min BUN/Creatinine Ratio (6-22) Glucose (70-100) mg/dL Calcium (8.4-10.2) mg/dL Total Bilirubin (0.2-1.3) mg/dL AST (17-59) IU/L ALT (<50) IU/L Alkaline Phosphatase (38-126) U/L Total Creatine Kinase (55-170) U/L Troponin I (0.01-0.034) ng/mL Total Protein (6.3-8.2) g/dL Albumin (3.5-5.0) g/dL Globulin (1.7-4.1) g/dL Albumin/Globulin Ratio (1.0-2.8) Lipase (23-300) U/L Urine RBC (0-5/HPF) Urine WBC (0-5/HPF) Ur Squamous Epith Cells (0-5/HPF) Urine Bacteria (None) Chlamy pneumoniae PCR Not detected (Not Detect) Adenovirus (PCR) Not detected (Not Detect) B.parapertussis DNA PCR Not detected (Not Detecte) Coronavirus OC43 (PCR) Not detected (Not Detect) Coronavirus HKU1 (PCR) Not detected (Not Detect) Coronavirus 229E (PCR) Not detected (Not Detect) SARS-CoV-2 (PCR) Not detected (Not Detecte) Coronavirus NL63 (PCR) Not detected (Not Detect) Human Metapneumovir PCR Not detected (Not Detect) Influenza Type A (PCR) Not detected (Not Detect) Influenza Type B (PCR) Not detected (Not Detect) M. pneumoniae (PCR) Not detected (Not Detect) Parainfluenza 1 (PCR) Not detected (Not Detect) Parainfluenza 2 (PCR) Not detected (Not Detect) Parainfluenza 3 (PCR) Not detected (Not Detect) Parainfluenza 4 (PCR) Not detected (Not Detect) RSV (PCR) Not detected (Not Detect) Entero/Rhino (PCR) Not detected (Not Detect) Urine Dip Bedside Urine Glucose Negative Bedside Urine Bilirubin - Negative Bedside Urine Ketone - Negative Urine Specific [place] 1.025 Bedside Urine Occult Blood + Bedside Urine pH 6.0 Bedside Urine Protein - Negative Bedside Urine Urobilinogen - Negative Bedside Urine Nitrite - Negative Bedside Urine Leukocytes - Negative Esterase Point of care testing: Urine Dip Bedside Urine Glucose Negative Bedside Urine Bilirubin - Negative Bedside Urine Ketone - Negative Urine Specific [place] 1.025 Bedside Urine Occult Blood + Bedside Urine pH 6.0 Bedside Urine Protein - Negative Bedside Urine Urobilinogen - Negative Bedside Urine Nitrite - Negative Bedside Urine Leukocytes - Negative Esterase Imaging Data US - abdomen: Radiologist's Impression: PROCEDURE: US ABDOMEN LIMITED INDICATIONS: RUQ pain eval for GB patholody TECHNIQUE: Real-time scanning was performed of the abdominal, with image documentation. COMPARISON: [facility], CT, CT ABDOMEN PELVIS W CON, 05/23/2023, 6:18. [facility], US, US ABDOMEN LIMITED, 05/23/2023, 7:17. FINDINGS: Liver: Measures 18.2 cm in length. Within normal limits in size. Increased in echogenicity. Gallbladder: Nondilated. 2-3 gallstones measuring approximately 7 mm. Gallbladder wall measures 4.6 mm in thickness. No pericholecystic fluid. Negative sonographic Lemus's sign. Biliary ducts: Intrahepatic bile ducts are non-dilated. Extrahepatic bile duct caliber measures 6 mm. Normal is 6-7 mm or less in diameter, or 10 mm or less post-cholecystectomy. Pancreas: Visualized portions of the pancreas are sonographically normal. Tail not well seen due to bowel gas. IMPRESSION: 1. Mild gallbladder wall thickening. Small gallstones. Findings raise the possibility of cholecystitis. However, no pericholecystic fluid and negative sonographic Lemus's sign which speaks against acute pathology. 2. Increased hepatic echogenicity most consistent with hepatic steatosis. Other forms of hepatocellular disease could have similar appearance. Chest x-ray: Radiologist's Impression: PROCEDURE: XR CHEST 1V INDICATIONS: SOB TECHNIQUE: One view of the chest was acquired. COMPARISON: [facility], CR, XR CHEST 1 VIEW, 07/15/2023, 9:31. [facility], CR, XR CHEST 1V, 09/07/2019, 16:40. [facility], CR, XR CHEST 1V, 05/31/2018, 19:27. FINDINGS: Surgical changes and devices: Left pacemaker with right atrial and right ventricular leads. Lower spine hardware. Lungs and pleura: Lungs are clear. No pleural effusions or pneumothorax. Mediastinum: Mediastinal contours appear normal. Heart size is normal. Bones and chest wall: No suspicious bony lesions. Overlying soft tissues appear unremarkable. IMPRESSION: No acute cardiopulmonary abnormality is seen. CT scan - chest: Radiologist's Impression: PROCEDURE: CT ANGIO CHEST PE PROTOCOL INDICATIONS: Chest pain, shortness of breath, tachycardia TECHNIQUE: After the administration of intravenous contrast, 2 mm thick sections acquired from the pulmonary apices to the posterior costophrenic angles. 3-dimensional maximum intensity projection (MIP) coronal and sagittal reformats were then acquired through the thorax. For radiation dose reduction, the following was used: automated exposure control, adjustment of mA and/or kV according to patient size. COMPARISON: [facility], CT, CT CHEST ABD PEL W CON, 06/21/2020, 9:36. [facility], CR, XR CHEST 1V, 07/30/2023, 23:31. [facility], CR, XR CHEST 1 VIEW, 07/15/2023, 9:31. FINDINGS: Image quality: Diagnostic. Pulmonary arteries: Pulmonary arteries are normal in size, and demonstrate no intraluminal filling defects to suggest central pulmonary embolism. Lower Neck: No enlarged lymph nodes. Thyroid: No thyroid nodules which require sonographic follow up, per consensus guidelines. Axillae: No enlarged lymph nodes. Chest Wall: Unremarkable. Bones: No suspicious osseous lesion. Lumbar spine hardware. Lungs and Pleura: No pneumothorax or pleural effusions. No consolidation. Left upper lobe pulmonary nodule measuring 0.5 cm, (), new. Platelike appearance on the coronal images. Right lung base pulmonary nodule measuring 0.6 cm, (149), unchanged. Heart: Left pacemaker with right atrial and right ventricular leads. Heart size is normal. No pericardial effusion. Thoracic Vessels: No aortic aneurysm. Mediastinum and Ilda: No enlarged lymph nodes. Esophagus: No wall thickening. No hiatal hernia. Upper Abdomen: Visualized upper abdomen solid organs and bowel loops appear normal. IMPRESSION: 1. No pulmonary embolism. 2. No acute airspace opacity. ECG Data Attestation: I personally reviewed and interpreted this ECG as follows: Interpretation: Sinus rhythm Ventricular rate 88 Normal axis Normal QRS Normal QTC No ST T wave changes MDM Narrative Medical decision making narrative: After Toradol here in the emergency department he stated that his abdominal discomfort and epigastric discomfort had actually completely resolved however he was still having the shortness of breath and feeling like he was not completely taking deep breaths. His respiratory panel was negative. Chest x-ray was unremarkable. D-dimer was elevated. Subsequent CTA shows no acute pathology. Patient has a history of a third-degree heart block and has a pacemaker placed but he has not paced now. His heart rate and rhythm have been unremarkable. He has not in heart failure. No signs of an acute infection. Potentially some improvement with using the incentive spirometer. There was no indication for admission to the hospital. I did discuss all this with the patient. Advised that he reestablish care with General surgery to discuss having his gallbladder removed. He was given return precautions. He expressed understanding and agreement. Discharge Plan Departure Patient Disposition: Home Clinical Impression: Cholelithiasis, Shortness of breath Instructions: DI for Gallstones, How to Manage Shortness of Breath Activity Restrictions/Additional Instructions: I do recommend that you contact the general surgery department for a follow-up to discuss having her gallbladder removed. Your workup here in the emergency department is very reassuring. There was no signs of pneumonia or current heart issues or blood clots in your lungs. Continue to take all of your medications as directed. Return to the emergency department for new or worsening symptoms. Prescriptions: No Action No Known Home Medications Referrals: Dalton Yu MD [Physician] - Nigel Limon MD [Primary Care Provider] - Stand Alone Forms: Patient Portal/API
[2023-07-30] MEDS: ONDANSETRON 4 MG/2 ML INJ IV (22:12)
[2023-07-30] MEDS: KETOROLAC 30 MG/ML VIAL IV (22:18)
[2023-07-30 22:34] LABS: Bacteria Urine None Seen; RBC Urine 0-1/HPF (0-5/HPF); Squamous Epithelial Cell Urine None Seen (0-5/HPF); WBC Urine None Seen (0-5/HPF)
[2023-07-30 22:35] LABS: Add Manual Diff / Slide Review NO; Basophils Absolute Auto 100 /uL (0-100); Basophils Percent Auto 0.7 % (0-2); Eosinophils Absolute Auto 200 /uL (0-450); Eosinophils Percent Auto 2.3 % (2-4); Hematocrit 44.1 % (41-53); Hemoglobin 15.2 g/dL (13.5-17.5); Lymphocytes Absolute Auto 1900 /uL (1100-4500); Lymphocytes Percent Auto 20.1 % (25-40); Mean Corpuscular HGB Conc 34.4 % (30-36); Mean Corpuscular Hemoglobin 29.9 PG (26-34); Monocytes Absolute Auto 1100 /uL (0-900); Monocytes Percent Auto 11.3 % (3-14); Neutrophils Absolute Auto 6400 /uL (1500-7000); Neutrophils Percent Auto 65.6 % (50-75); Platelet Count 263 X10^3/uL (150-400); Red Blood Cell Count 5.07 X10^6/uL (4.5-5.9); Red Cell Distribution Width 14.6 % (11.6-14.8); White Blood Cell Count 9.7 X10^3/uL (4.5-11.0)
[2023-07-30 22:45] LABS: Alanine Aminotransferase 58 IU/L (<50); Albumin 4.7 g/dL (3.5-5.0); Albumin Globulin Ratio 1.4 (1.0-2.8); Alkaline Phosphatase 82 U/L (38-126); Aspartate Aminotransferase 27 IU/L (17-59); BUN Creatinine Ratio 14.1 (6-22); Bilirubin Total 1.4 mg/dL (0.2-1.3); Blood Urea Nitrogen 11 mg/dL (9-20); Calcium 10.1 mg/dL (8.4-10.2); Carbon Dioxide 26 mmol/L (22-32); Chloride 98 mmol/L (98-107); Estimated Glomerular Filt Rate > 60 mL/min (>60); Globulin 3.3 g/dL (1.7-4.1); Glucose 119 mg/dL (70-100); HEMOLYSIS < 15 (0-50); Lipase 27 U/L (23-300); Potassium 4.1 mmol/L (3.4-5.1); Sodium 135 mmol/L (137-145)
--- NOTE | 2023-07-30 23:16 | DI.RAD.S_ITS ---
PROCEDURE: XR CHEST 1V INDICATIONS: SOB TECHNIQUE: One view of the chest was acquired. COMPARISON: [facility], CR, XR CHEST 1 VIEW, 07/15/2023, 9:31. [facility], CR, XR CHEST 1V, 09/07/2019, 16:40. [facility], CR, XR CHEST 1V, 05/31/2018, 19:27. FINDINGS: Surgical changes and devices: Left pacemaker with right atrial and right ventricular leads. Lower spine hardware. Lungs and pleura: Lungs are clear. No pleural effusions or pneumothorax. Mediastinum: Mediastinal contours appear normal. Heart size is normal. Bones and chest wall: No suspicious bony lesions. Overlying soft tissues appear unremarkable. IMPRESSION: No acute cardiopulmonary abnormality is seen. Dictated by: Bryant Reza M.D. on 07/31/2023 at 0:01 Approved by: Bryant Reza M.D. on 07/31/2023 at 0:03
--- NOTE | 2023-07-30 23:25 | PC.NURSE ---
Pt was educatedo n how to use an incentive spirometer. Pt was able to demonstrate correctly back how to use. Pt was able to get to about 1500. Pt states he does not feel short of breath, just that he feels like there is something stopping me from breathing fully. aware.
[2023-07-30 23:35] LABS: Creatine Kinase 72 U/L (55-170)
[2023-07-30 23:38] LABS: D Dimer 864 ng/ml (<500)
--- NOTE | 2023-07-30 23:42 | DI.CT.S_ITS ---
PROCEDURE: CT ANGIO CHEST PE PROTOCOL INDICATIONS: Chest pain, shortness of breath, tachycardia TECHNIQUE: After the administration of intravenous contrast, 2 mm thick sections acquired from the pulmonary apices to the posterior costophrenic angles. 3-dimensional maximum intensity projection (MIP) coronal and sagittal reformats were then acquired through the thorax. For radiation dose reduction, the following was used: automated exposure control, adjustment of mA and/or kV according to patient size. COMPARISON: [facility], CT, CT CHEST ABD PEL W CON, 06/21/2020, 9:36. [facility], CR, XR CHEST 1V, 07/30/2023, 23:31. [facility], CR, XR CHEST 1 VIEW, 07/15/2023, 9:31. FINDINGS: Image quality: Diagnostic. Pulmonary arteries: Pulmonary arteries are normal in size, and demonstrate no intraluminal filling defects to suggest central pulmonary embolism. Lower Neck: No enlarged lymph nodes. Thyroid: No thyroid nodules which require sonographic follow up, per consensus guidelines. Axillae: No enlarged lymph nodes. Chest Wall: Unremarkable. Bones: No suspicious osseous lesion. Lumbar spine hardware. Lungs and Pleura: No pneumothorax or pleural effusions. No consolidation. Left upper lobe pulmonary nodule measuring 0.5 cm, (6/91), new. Platelike appearance on the coronal images. Right lung base pulmonary nodule measuring 0.6 cm, (6/149), unchanged. Heart: Left pacemaker with right atrial and right ventricular leads. Heart size is normal. No pericardial effusion. Thoracic Vessels: No aortic aneurysm. Mediastinum and Ilda: No enlarged lymph nodes. Esophagus: No wall thickening. No hiatal hernia. Upper Abdomen: Visualized upper abdomen solid organs and bowel loops appear normal. IMPRESSION: 1. No pulmonary embolism. 2. No acute airspace opacity. Dictated by: Bryant Reza M.D. on 07/31/2023 at 0:13 Approved by: Bryant Reza M.D. on 07/31/2023 at 0:23
[2023-07-30 23:48] LABS: Troponin I < 0.012 ng/mL (0.01-0.034)
[2023-07-31 00:02] VITALS: PULSE 81; O2SAT 98
[2023-07-31 00:23] LABS: Adenovirus Not Detected (Not Detect); B. parapertussis Not Detected (Not Detecte); Bordetella pertussis Not Detected (Not Detect); Chlamydophila pneumoniae Not Detected (Not Detect); Coronavirus 229E Not Detected (Not Detect); Coronavirus HKU1 Not Detected (Not Detect); Coronavirus NL 63 Not Detected (Not Detect); Coronavirus OC43 Not Detected (Not Detect); Human Metapneumovirus Not Detected (Not Detect); Human Rhinovirus/Enterovirus Not Detected (Not Detect); Influenza A Not Detected (Not Detect); Influenza B Not Detected (Not Detect); Mycoplasma pneumoniae Not Detected (Not Detect); Parainfluenza Virus 1 Not Detected (Not Detect); Parainfluenza Virus 2 Not Detected (Not Detect); Parainfluenza Virus 3 Not Detected (Not Detect); Parainfluenza Virus 4 Not Detected (Not Detect); Respiratory Syncytial Virus Not Detected (Not Detect); SARS- CoV-2 Not Detected (Not Detecte)
[2023-07-31 00:30] VITALS: PULSE 82; O2SAT 93
[2023-07-31 01:04] VITALS: BP 115/79; PULSE 72; RESP 16; TEMP 36.6; O2SAT 93
== END 2023-07-31 01:07 | disposition home or self-care (01) ==
PROVIDERS: Emergency Provider Emergency Medicine; PCP Family Medicine
DX: K80.20 Calculus of gallbladder without cholecystitis without obstruction (principal); R06.02 Shortness of breath; R07.9 Chest pain, unspecified; R00.0 Tachycardia, unspecified; Z20.822 Contact with and (suspected) exposure to COVID-19
CPT/HCPCS: 36415; 71045; 71275; 76705; 80053; 81003; 81015; 82550; 83690; 84484; 85025; 85379; 87086; 87633; 93005; 93010; 96374; 96375; 99284; J1885; J2405; Q9967

== ENCOUNTER 2023-08-03 08:22 | Emergency (ER) | payer MEDICARE, OTHER, SELFPAY ==
[2023-06-23 18:31] VITALS: BMI 33.7
[2023-08-03] VITALS (8 sets, daily range): BP systolic 135–150; BP diastolic 83–101; PULSE 75–92; RESP 18–25; TEMP 36.6; O2SAT 94–98; BMI 34.4
--- NOTE | 2023-08-03 08:48 | ED_ITS ---
HPI - Abdominal Pain General Chief Complaint: Abdominal Pain Stated Complaint: abd pain t-3 Time Seen by Provider: 08/03/23 08:28 Source: patient Mode of arrival: Ambulatory History of Present Illness HPI narrative: 47-year-old male with history of cholelithiasis, third-degree heart block status post pacemaker presents for 3 days of generalized abdominal pain and bloating. Mild nausea. Seen here 3 days prior, right upper quadrant ultrasound showed cholelithiasis without cholecystitis. CT angio negative for acute findings. Patient states that his pain has migrated lower into his abdomen. Related Data Previous Rx's Medication Instructions Recorded amoxicillin 875 mg-potassium 1 tab PO Q12H #14 tabs 08/03/23 clavulanate 125 mg tablet hydrocodone 5 mg-acetaminophen 325 1 tab PO Q4-6H PRN pain #14 tabs 08/03/23 mg tablet ondansetron 4 mg disintegrating 4 mg PO Q8H PRN nausea and 08/03/23 tablet vomiting #30 tabs Allergies Allergy/AdvReac Type Severity Reaction Status Date / Time No Known Drug Allergies Allergy Verified 07/30/23 21:26 Review of Systems Review of Systems Narrative: Otherwise negative. Patient History Medical History Kidney stones Sleep apnea GERD (gastroesophageal reflux disease) Anxiety Depression Surgical History H/O vasectomy (2002) Hx of appendectomy (2002) History of tonsillectomy (2002) Social History marital status: household members: spouse Smoking Status: Former smoker alcohol intake: current Smoking Status: Former smoker tobacco type: cigarettes alcohol intake frequency: holidays/special occasions only Alcohol type: hard liquor Substance Use Type: marijuana Exam Initial Vital Signs Initial Vital Signs: Vital Signs Pulse Rate 91 H 08/03/23 08:29 Pulse Oximetry 97 08/03/23 08:29 Const: Awake, alert, no acute distress, nontoxic appearing Cardiac: regular rate, regular rhythm RESP: unlabored, clear bilaterally, no wheezing GI: Atraumatic, soft, generalized tenderness to palpation without rebound or guarding, negative Lemus sign MSK: Atraumatic, full range of motion, pulses equal Skin: Warm, Dry, intact, no rashes Neuro: AO x3, CN II-XII grossly intact, moves all extremities Course Orders Ordered: Discontinued Medications Sodium Chloride (Normal Saline 0.9%) 1,000 mls @ 1,000 mls/hr IV BOLUS ONE Stop: 08/03/23 10:10 Last Infusion: 08/03/23 10:20 Dose: Infused Documented By: Infusion: 08/03/23 10:20 Dose: 0 mls/hr Documented By: Admin: 08/03/23 09:34 Dose: 1,000 mls/hr Documented By: GARETT Morphine Sulfate (Morphine 4 Mg/Ml Inj) 4 mg IV NOW ONE Stop: 08/03/23 09:12 Last Admin: 08/03/23 09:34 Dose: 4 mg Documented By: GARETT Ondansetron HCl (Ondansetron 4 Mg/2 Ml Inj) 4 mg IV NOW ONE Stop: 08/03/23 09:12 Last Admin: 08/03/23 09:34 Dose: 4 mg Documented By: GARETT Vital Signs Vital signs: Vital Signs - 8 hr 08/03/23 10:00 08/03/23 10:00 08/03/23 10:14 Pulse Rate 75 80 Blood Pressure 150/101 H Pulse Oximetry 94 95 Oxygen Delivery Method Room Air 08/03/23 10:14 Pulse Rate Blood Pressure 150/100 H Pulse Oximetry Oxygen Delivery Method MDM - Abdominal Pain Differential Diagnosis Differential diagnosis: Likely abdominal pain, acute appendicitis and calculus of kidney Lab Data 08/03/23 08:40 08/03/23 08:40 Labs: Lab Results 08/03/23 Range/Units 08:40 WBC 8.2 (4.5-11.0) X10^3/uL RBC 4.77 (4.5-5.9) X10^6/uL Hgb 14.6 (13.5-17.5) g/dL Hct 41.6 (41-53) % MCV 87.2 (80-100) fL MCH 30.5 (26-34) PG MCHC 35.0 (30-36) % RDW 13.9 (11.6-14.8) % Plt Count 318 (150-400) X10^3/uL Neut % (Auto) 65.0 (50-75) % Lymph % (Auto) 20.8 L (25-40) % [place] % (Auto) 8.8 (3-14) % Eos % (Auto) 4.8 H (2-4) % Baso % (Auto) 0.6 (0-2) % Neut # (Auto) 5300 (7616-9388) /uL Lymph # (Auto) 1700 (7563-2320) /uL [place] # (Auto) 700 (0-900) /uL Eos # (Auto) 400 (0-450) /uL Baso # (Auto) 100 (0-100) /uL Sodium 136 L (137-145) mmol/L Potassium 3.8 (3.4-5.1) mmol/L Chloride 101 (98-107) mmol/L Carbon Dioxide 23 (22-32) mmol/L BUN 13 (9-20) mg/dL Creatinine 0.75 (0.66-1.25) mg/dL Estimated GFR > 60 (>60) mL/min BUN/Creatinine Ratio 17.3 (6-22) Glucose 131 H (70-100) mg/dL Calcium 9.5 (8.4-10.2) mg/dL Total Bilirubin 0.8 (0.2-1.3) mg/dL AST 30 (17-59) IU/L ALT 47 (<50) IU/L Alkaline Phosphatase 92 (38-126) U/L Total Protein 7.8 (6.3-8.2) g/dL Albumin 4.3 (3.5-5.0) g/dL Globulin 3.5 (1.7-4.1) g/dL Albumin/Globulin Ratio 1.2 (1.0-2.8) Lipase 32 (23-300) U/L Point of care testing: Urine Dip Bedside Urine Glucose Negative Bedside Urine Bilirubin - Negative Bedside Urine Ketone - Negative Urine Specific [place] 1.025 Bedside Urine Occult Blood - Negative Bedside Urine pH 6.0 Bedside Urine Protein - Negative Bedside Urine Urobilinogen - Negative Bedside Urine Nitrite - Negative Bedside Urine Leukocytes - Negative Esterase MDM Narrative Medical decision making narrative: several days of generalized abdominal pain, changed in nature from when he was here several days ago. Abdomen is soft, diffuse tenderness to deep palpation, no rebound or guarding. We will repeat labs and imaging here. Laboratory work is reviewed, no change from prior. CT of the abdomen and pelvis shows findings concerning for acute cholecystitis. Liver enzymes normal, no leukocytosis. Called Dr. De Souza of General surgery, who stated that with normal labs and otherwise benign abdominal exam patient can be scheduled for outpatient surgery and does not need to be admitted to the hospital. Patient can go straight to the surgical office to schedule his operation. Patient resting comfortably in bed, watching videos on his cell phone. I advised the patient of General surgery's recommendations. While pending surgery patient will be discharged on nausea medication, antibiotics, pain medication. He states that he will go right away to the surgical office to schedule his operation. Discharge Plan Departure Patient Disposition: Home Clinical Impression: Acute cholecystitis Instructions: DI for Cholecystitis Activity Restrictions/Additional Instructions: Please go immediately to the surgical center to get your surgery scheduled. Prescriptions: New hydrocodone-acetaminophen 5-325 mg tablet 1 tab PO Q4-6H PRN (Reason: pain) Qty: 14 0RF amoxicillin-pot clavulanate 875-125 mg tablet 1 tab PO Q12H Qty: 14 0RF ondansetron 4 mg tablet,disintegrating 4 mg PO Q8H PRN (Reason: nausea and vomiting) Qty: 30 0RF Referrals: Michelle De Souza MD [Physician] - Nigel Limon MD [Primary Care Provider] - Stand Alone Forms: Patient Portal/API
--- NOTE | 2023-08-03 09:11 | ED.ABDPAIN ---
HPI - Abdominal Pain General Chief Complaint: Abdominal Pain Stated Complaint: abd pain t-3 Time Seen by Provider: 08/03/23 08:28 Source: patient Mode of arrival: Ambulatory Related Data Previous Rx's Medication Instructions Recorded amoxicillin 875 mg-potassium 1 tab PO Q12H #14 tabs 08/03/23 clavulanate 125 mg tablet hydrocodone 5 mg-acetaminophen 325 1 tab PO Q4-6H PRN pain #14 tabs 08/03/23 mg tablet ondansetron 4 mg disintegrating 4 mg PO Q8H PRN nausea and 08/03/23 tablet vomiting #30 tabs Allergies Allergy/AdvReac Type Severity Reaction Status Date / Time No Known Drug Allergies Allergy Verified 07/30/23 21:26 Patient History Medical History Kidney stones Sleep apnea GERD (gastroesophageal reflux disease) Anxiety Depression Surgical History (Updated 06/22/23 @ 09:27 by La Pike RN) H/O vasectomy (2002) Hx of appendectomy (2002) History of tonsillectomy (2002) Social History marital status: household members: spouse Smoking Status: Former smoker alcohol intake: current Smoking Status: Former smoker tobacco type: cigarettes alcohol intake frequency: holidays/special occasions only Alcohol type: hard liquor Substance Use Type: marijuana Exam Initial Vital Signs Initial Vital Signs: Vital Signs Pulse Rate 91 H 08/03/23 08:29 Pulse Oximetry 97 08/03/23 08:29 Course Orders Ordered: ED Orders 08/03/23 08:40 Complete Blood Count AUTO DIFF Stat Comprehensive Metabolic Panel Stat Lipase Stat 08/03/23 09:12 CT abdomen pelvis w con Stat Discontinued Medications Sodium Chloride (Normal Saline 0.9%) 1,000 mls @ 1,000 mls/hr IV BOLUS ONE Stop: 08/03/23 10:10 Last Infusion: 08/03/23 10:20 Dose: Infused Documented By: Infusion: 08/03/23 10:20 Dose: 0 mls/hr Documented By: Admin: 08/03/23 09:34 Dose: 1,000 mls/hr Documented By: GARETT Morphine Sulfate (Morphine 4 Mg/Ml Inj) 4 mg IV NOW ONE Stop: 08/03/23 09:12 Last Admin: 08/03/23 09:34 Dose: 4 mg Documented By: GARETT Ondansetron HCl (Ondansetron 4 Mg/2 Ml Inj) 4 mg IV NOW ONE Stop: 08/03/23 09:12 Last Admin: 08/03/23 09:34 Dose: 4 mg Documented By: GARETT Vital Signs Vital signs: Vital Signs - 8 hr 08/03/23 08:29 08/03/23 08:30 08/03/23 08:30 Temperature Pulse Rate 91 H 91 H Respiratory Rate 25 H Blood Pressure 135/83 Pulse Oximetry 97 96 Oxygen Delivery Method 08/03/23 08:31 08/03/23 09:00 08/03/23 09:00 Temperature 97.8 F Pulse Rate 92 H 86 Respiratory Rate 18 20 Blood Pressure 140/90 135/89 Pulse Oximetry 98 94 Oxygen Delivery Method Room Air Room Air 08/03/23 09:28 08/03/23 09:28 08/03/23 09:30 Temperature Pulse Rate 80 79 Respiratory Rate 21 24 Blood Pressure 139/87 Pulse Oximetry 96 95 Oxygen Delivery Method 08/03/23 09:30 08/03/23 10:00 08/03/23 10:00 Temperature Pulse Rate 75 Respiratory Rate Blood Pressure 147/91 H 150/101 H Pulse Oximetry 94 Oxygen Delivery Method 08/03/23 10:14 08/03/23 10:14 Temperature Pulse Rate 80 Respiratory Rate Blood Pressure 150/100 H Pulse Oximetry 95 Oxygen Delivery Method Room Air MDM - Abdominal Pain Lab Data 08/03/23 08:40 08/03/23 08:40 Labs: Lab Results 08/03/23 Range/Units 08:40 WBC 8.2 (4.5-11.0) X10^3/uL RBC 4.77 (4.5-5.9) X10^6/uL Hgb 14.6 (13.5-17.5) g/dL Hct 41.6 (41-53) % MCV 87.2 (80-100) fL MCH 30.5 (26-34) PG MCHC 35.0 (30-36) % RDW 13.9 (11.6-14.8) % Plt Count 318 (150-400) X10^3/uL Neut % (Auto) 65.0 (50-75) % Lymph % (Auto) 20.8 L (25-40) % [place] % (Auto) 8.8 (3-14) % Eos % (Auto) 4.8 H (2-4) % Baso % (Auto) 0.6 (0-2) % Neut # (Auto) 5300 (7122-9396) /uL Lymph # (Auto) 1700 (8056-0223) /uL [place] # (Auto) 700 (0-900) /uL Eos # (Auto) 400 (0-450) /uL Baso # (Auto) 100 (0-100) /uL Sodium 136 L (137-145) mmol/L Potassium 3.8 (3.4-5.1) mmol/L Chloride 101 (98-107) mmol/L Carbon Dioxide 23 (22-32) mmol/L BUN 13 (9-20) mg/dL Creatinine 0.75 (0.66-1.25) mg/dL Estimated GFR > 60 (>60) mL/min BUN/Creatinine Ratio 17.3 (6-22) Glucose 131 H (70-100) mg/dL Calcium 9.5 (8.4-10.2) mg/dL Total Bilirubin 0.8 (0.2-1.3) mg/dL AST 30 (17-59) IU/L ALT 47 (<50) IU/L Alkaline Phosphatase 92 (38-126) U/L Total Protein 7.8 (6.3-8.2) g/dL Albumin 4.3 (3.5-5.0) g/dL Globulin 3.5 (1.7-4.1) g/dL Albumin/Globulin Ratio 1.2 (1.0-2.8) Lipase 32 (23-300) U/L Point of care testing: Urine Dip Bedside Urine Glucose Negative Bedside Urine Bilirubin - Negative Bedside Urine Ketone - Negative Urine Specific [place] 1.025 Bedside Urine Occult Blood - Negative Bedside Urine pH 6.0 Bedside Urine Protein - Negative Bedside Urine Urobilinogen - Negative Bedside Urine Nitrite - Negative Bedside Urine Leukocytes - Negative Esterase Discharge Plan Departure Patient Disposition: Home Clinical Impression: Acute cholecystitis Instructions: DI for Cholecystitis Activity Restrictions/Additional Instructions: Please go immediately to the surgical center to get your surgery scheduled. Prescriptions: New hydrocodone-acetaminophen 5-325 mg tablet 1 tab PO Q4-6H PRN (Reason: pain) Qty: 14 0RF amoxicillin-pot clavulanate 875-125 mg tablet 1 tab PO Q12H Qty: 14 0RF ondansetron 4 mg tablet,disintegrating 4 mg PO Q8H PRN (Reason: nausea and vomiting) Qty: 30 0RF Referrals: Michelle De Souza MD [Physician] - Nigel Limon MD [Primary Care Provider] - Stand Alone Forms: Patient Portal/API
--- NOTE | 2023-08-03 09:12 | DI.CT.S_ITS ---
PROCEDURE: CT ABDOMEN PELVIS W CON INDICATIONS: midepigastric/periumbilical abd pain TECHNIQUE: After the administration of intravenous contrast, axial sections acquired from the lung bases to the pubic symphysis. Coronal and sagittal reformats were performed. For radiation dose reduction, the following was used: automated exposure control, adjustment of mA and/or kV according to patient size. COMPARISON: [facility], CT, CT ABDOMEN PELVIS W CON, 05/23/2023, 6:18. FINDINGS: Image quality: Diagnostic. Lower Chest: No significant findings. ABDOMEN: Liver: No solid mass. Gallbladder: Gallbladder wall is thickened, and there is mild surrounding pericholecystic fat stranding. Biliary ducts: No biliary dilation. Pancreas: No ductal dilation. Spleen: Size is within normal limits. Adrenal Glands: No adrenal nodules. Kidneys and Ureters: No hydronephrosis. No solid mass. No complex renal cystic lesion which requires follow up. Small nonobstructing bilateral renal calculi are present. Stomach and Bowel: Normal colonic caliber, without significant wall thickening. Appendix is not seen. No evidence of appendicitis. Peritoneum: No abnormal intraperitoneal fluid. No free air. Ventral Wall: No hernia. Abdominal Nodes: No retroperitoneal or mesenteric adenopathy by size criteria. Vessels: Aorta and inferior vena cava are normal in size. PELVIS: Pelvic Organs: Unremarkable. Bladder: Decompressed. Pelvic Nodes: No enlarged lymph nodes. Miscellaneous: No inguinal hernias are seen. Bones: No aggressive osseous abnormality. Bilateral L5-S1 pars interarticularis defects. Grade 1 spondylolisthesis of L5 on S1. Thoracolumbar fusion hardware is present. IMPRESSION: 1. Acute cholecystitis. 2. Nonobstructing small bilateral renal calculi. 3. Appendix not seen. No evidence of appendicitis. 4. Grade 1 isthmic spondylolisthesis at L5-S1. Dictated by: Andreea Webber M.D. on 08/03/2023 at 9:53 Approved by: Andreea Webber M.D. on 08/03/2023 at 9:58
[2023-08-03 09:19] LABS: Add Manual Diff / Slide Review NO; Basophils Absolute Auto 100 /uL (0-100); Basophils Percent Auto 0.6 % (0-2); Eosinophils Absolute Auto 400 /uL (0-450); Eosinophils Percent Auto 4.8 % (2-4); Hematocrit 41.6 % (41-53); Hemoglobin 14.6 g/dL (13.5-17.5); Lymphocytes Absolute Auto 1700 /uL (1100-4500); Lymphocytes Percent Auto 20.8 % (25-40); Mean Corpuscular Hemoglobin 30.5 PG (26-34); Mean Corpuscular Volume 87.2 fL (80-100); Monocytes Absolute Auto 700 /uL (0-900); Monocytes Percent Auto 8.8 % (3-14); Neutrophils Absolute Auto 5300 /uL (1500-7000); Platelet Count 318 X10^3/uL (150-400); Red Blood Cell Count 4.77 X10^6/uL (4.5-5.9); Red Cell Distribution Width 13.9 % (11.6-14.8); White Blood Cell Count 8.2 X10^3/uL (4.5-11.0)
--- NOTE | 2023-08-03 09:19 | PC.NURSE ---
Pt reports midsternal/epigastrum pain last week which he was seen here in the ER for. Since then his pain has moved to his central abdomen. Pt has taken stool softeners and tried a dose of oxycodone, which he has at home for gallstones, which he states did not help his pain. Pt reports feeling bloated and has increased pain with movement. Pt was in surgery for cholecystectomy last month when his heart stopped and they placed a pacemaker. Pt states he still has his gallbladder. Pt denies chest pain, SOB, dizziness.
[2023-08-03 09:26] LABS: Alanine Aminotransferase 47 IU/L (<50); Albumin 4.3 g/dL (3.5-5.0); Albumin Globulin Ratio 1.2 (1.0-2.8); Alkaline Phosphatase 92 U/L (38-126); Aspartate Aminotransferase 30 IU/L (17-59); BUN Creatinine Ratio 17.3 (6-22); Bilirubin Total 0.8 mg/dL (0.2-1.3); Blood Urea Nitrogen 13 mg/dL (9-20); Calcium 9.5 mg/dL (8.4-10.2); Carbon Dioxide 23 mmol/L (22-32); Chloride 101 mmol/L (98-107); Estimated Glomerular Filt Rate > 60 mL/min (>60); Globulin 3.5 g/dL (1.7-4.1); Glucose 131 mg/dL (70-100); HEMOLYSIS < 15 (0-50); Lipase 32 U/L (23-300); Potassium 3.8 mmol/L (3.4-5.1); Sodium 136 mmol/L (137-145); Total Protein 7.8 g/dL (6.3-8.2)
[2023-08-03] MEDS: MORPHINE 4 MG/ML INJ IV (09:34)
[2023-08-03] MEDS: SODIUM CHLORIDE 0.9% 1,000 ML 1000 ML IV (09:34)
[2023-08-03] MEDS: ONDANSETRON 4 MG/2 ML INJ IV (09:34)
== END 2023-08-03 10:29 | disposition home or self-care (01) ==
PROVIDERS: Emergency Provider Emergency Medicine; PCP Family Medicine
DX: K81.0 Acute cholecystitis (principal); Z95.0 Presence of cardiac pacemaker
CPT/HCPCS: 36415; 74177; 80053; 81003; 83690; 85025; 96361; 96374; 96375; 99284; J2270; J2405; Q9967

== ENCOUNTER 2023-08-11 06:58 | Day surgery (SDC) | payer MEDICARE, OTHER, SELFPAY ==
[2023-06-23 18:31] VITALS: BMI 33.7
[2023-08-07 08:16] VITALS: BMI 33.7
--- NOTE | 2023-08-11 | PATH_ITS ---
[facility] Accession Number: [id number] No. of containers..01 Tissue . 01 Material submitted: . gallbladder - GALLBLADDER . 01 Diagnosis: Gallbladder, Cholecystectomy: Acute hemorrhagic cholecystitis. ZA 08/13/2023 1140 Local . 01 Electronically signed: . Mell Lara MD, Pathologist NPI- [id number] . 01 Gross description: . The specimen is received in formalin labeled with the patient's name, , and gallbladder, and consists of an intact gallbladder measuring 8.6 x 4.1 x 4.1 cm with violaceous, roughened serosa. The cystic duct margin is inked blue, and no pericystic lymph node is identified. The lumen contains red mucoid material with no calculi identified in the lumen or the container. The mucosa is brar to hemorrhagic with adherent material consistent with exudate. The orozco average 0.4 cm thick with no discoloration, polyps, or lesions identified. Yarn Dyer sections include the cystic duct margin and full thickness sections are submitted in cassette A1. ([id number]) /ZA 08/12/2023 1031 Local . 01 Pathologist provided ICD-10: K81.0 . 01 CPT . 428994 Specimen Comment: A courtesy copy of this report has been sent to [phone] Performed at: 01 [facility] [address] [place] [address], [place], [place] [id number] MD Camron Chaudhary MD Phone: [phone]
--- NOTE | 2023-08-11 07:15 | SUR.OPER ---
Supine on padded OR bed, head on pillow, right arm secured on padded arm board at <90 degrees abduction, legs uncrossed, safety belt at thigh, tape over blanket over lower legs. left arm padded and tucked
[2023-08-11] MEDS: LACTATED RINGERS 1,000 ML 42 ML IV (07:23)
[2023-08-11] MEDS: ACETAMINOPHEN 325 MG TABLET 975 MG PO (07:28)
--- NOTE | 2023-08-11 07:47 | PM.HP.1 ---
History of Present Illness History of Present Illness Date Patient Seen: 08/11/23 Time Patient Seen: 07:47 Chief complaint: [facility] Narrative: Luiz is a 48 man with symptomatic cholelithiasis who was here in June for a laparoscopic cholecystectomy was noted to have an arrhythmia and so a case was canceled. He then saw a white sugar supervisor and had a pacemaker implanted. He is now here for his surgery again. [facility] Medical History (Updated 08/07/23 @ 09:28 by La Pike RN) History of COVID-19 (2021) Hypertrophic obstructive cardiomyopathy (HOCM) Pacemaker (06/26/23) Kidney stones Sleep apnea GERD (gastroesophageal reflux disease) Anxiety Depression Surgical History H/O vasectomy (2002) Hx of appendectomy (2002) History of tonsillectomy (2002) Social History marital status: household members: spouse Smoking Status: Former smoker alcohol intake: current Meds Home Medications and Allergies Home Medications Medication Instructions Recorded Confirmed Type hydrocodone 5 mg-acetaminophen 325 1 tab PO Q4-6H PRN pain #14 tabs 08/03/23 08/11/23 Rx mg tablet ondansetron 4 mg disintegrating 4 mg PO Q8H PRN nausea and 08/03/23 08/11/23 Rx tablet vomiting #30 tabs Allergies Allergy/AdvReac Type Severity Reaction Status Date / Time No Known Drug Allergies Allergy Verified 08/11/23 07:40 Exam Const General: healthy appearing and No acute distress Resp Effort & Inspection: normal respiratory effort Assessment & Plan Assessment and plan (1) Cholelithiasis: Status: Acute Plan We reviewed the risks and benefits of laparoscopic cholecystectomy for symptomatic cholelithiasis and he would like to proceed.
[2023-08-11 07:48] VITALS: BP 156/78; PULSE 64; RESP 16; TEMP 36.6; O2SAT 98; BMI 33.7
[2023-08-11] MEDS: CEFAZOLIN 2 GM/100 ML PREMIX 100 ML IV (08:00)
[2023-08-11] MEDS: BUPIVACAINE 0.5% (PF) 30 ML, EPINEPHrine 0.15 MG INJ (08:04)
[2023-08-11] MEDS: LACTATED RINGERS 1,000 ML 120 ML IV (08:44)
[2023-08-11 10:15] VITALS: BP 122/52; PULSE 81; RESP 22; TEMP 35.9; O2SAT 92
[2023-08-11 10:19] VITALS: BP 109/52; PULSE 75; RESP 19; O2SAT 93
[2023-08-11 10:25] VITALS: BP 114/62; PULSE 80; RESP 18; O2SAT 94
--- NOTE | 2023-08-11 10:27 | PM.OP.1 ---
Operative Date/Time/Diagnoses Date of procedure: 08/11/23 Time of procedure: 10:27 Pre-op diagnosis: Symptomatic cholelithiasis Post-op diagnosis: other (Chronic cholecystitis) Procedure & Clinicians Procedure: Laparoscopic cholecystectomy Same procedure as scheduled: Yes Surgeon: Dalton Yu Anesthesia Type: General Operative Notes Procedure in detail: This operation warrants a modifier 22 due to extensive inflammation and adhesions requiring an additional hour operating time. The patient was given preoperative antibiotics. The patient was brought to the operating room and placed on the table in the supine position. General endotracheal anesthesia was induced. The abdomen was prepped and draped. A time-out was performed. We made a 1 cm infraumbilical incision. We dissected down to the base of the umbilical stalk using cautery. We grasped the umbilical stalk with a Bari clamp to elevate the abdominal wall. We scored the fascia in the midline with cautery. We pierced the peritoneum with a Peon clamp. The Conner port was placed and the abdomen was insufflated to 15 mmHg. A 5 mm 30 degree laparoscopic was inserted. There was no evidence of any injury from the entry. Next, we placed 5 mm ports in the subxiphoid position and right upper quadrant at the midclavicular line and anterior axillary line. The patient was then positioned in reverse Trendelenburg and the table was tilted to the left. The gallbladder was extremely inflamed thickened we decompressed the gallbladder with a needle and aspirated about 30 mL of bile. We then started to bluntly dissect transverse colon and other segments of visceral fat off the gallbladder wall. Inflammation was extensive and required an hour of additional operating time. We eventually dissected the cystic structures with a combination of hook cautery and insidious blunt dissection. We obtained a critical view. We placed clips on the cystic duct and artery and divided the cystic duct and artery sharply between the clips. The gallbladder was then dissected off the liver and placed in a specimen retrieval bag. We irrigated the right upper quadrant and all the aspirate returned clear. We then removed the 5 mm ports under direct vision we removed the Conner port. We then injected some local into the fascia and closed the fascia with 2 interrupted 0 Vicryl sutures. The skin incisions were closed with 4-0 Monocryl and Steri-Strips were applied. Band-Aids were applied over the Steri-Strips. EBL: 50 mL Specimen: Gallbladder and contents Post-operative Condition: stable Disposition: PACU
[2023-08-11 10:30] VITALS: BP 140/84; PULSE 87; RESP 10; O2SAT 96
[2023-08-11 10:37] VITALS: BP 139/86; PULSE 84; RESP 12; TEMP 36.6; O2SAT 97
[2023-08-11] MEDS: OXYCODONE IR 5 MG TABLET PO (10:43)
[2023-08-11] MEDS: ONDANSETRON 4 MG/2 ML INJ IV (10:54)
== END 2023-08-11 11:15 | disposition home or self-care (01) ==
PROVIDERS: PCP Family Medicine; Referring Provider Surgery; Visit Provider Surgery
PROC: 0FT44ZZ Resection of Gallbladder, Percutaneous Endoscopic Approach (ICD-10-PCS; CPT 47562; principal; 2023-08-11 07:45)
DX: K81.0 Acute cholecystitis (principal); K82.8 Other specified diseases of gallbladder; G47.33 Obstructive sleep apnea (adult) (pediatric); Z95.0 Presence of cardiac pacemaker; Z87.891 Personal history of nicotine dependence
CPT/HCPCS: 47562; 93005; J0171; J0690; J1100; J1885; J2250; J2405; J2704; J3010

== ENCOUNTER 2024-01-10 19:24 | Emergency (ER) | payer MEDICARE, OTHER, SELFPAY ==
[2023-06-23 18:31] VITALS: BMI 33.7
[2024-01-10 19:44] VITALS: BP 153/96; PULSE 73; RESP 18; TEMP 37; O2SAT 98; BMI 31.1
[2024-01-10 20:07] LABS: Add Manual Diff / Slide Review NO; Basophils Absolute Auto 0 /uL (0-100); Basophils Percent Auto 0.4 % (0-2); Eosinophils Absolute Auto 200 /uL (0-450); Eosinophils Percent Auto 1.7 % (2-4); Hematocrit 46.6 % (41-53); Hemoglobin 15.9 g/dL (13.5-17.5); Lymphocytes Absolute Auto 2800 /uL (1100-4500); Lymphocytes Percent Auto 25.7 % (25-40); Mean Corpuscular HGB Conc 34.2 % (30-36); Mean Corpuscular Hemoglobin 29.9 PG (26-34); Mean Corpuscular Volume 87.5 fL (80-100); Monocytes Absolute Auto 800 /uL (0-900); Monocytes Percent Auto 7.2 % (3-14); Neutrophils Absolute Auto 7000 /uL (1500-7000); Platelet Count 249 X10^3/uL (150-400); Red Blood Cell Count 5.33 X10^6/uL (4.5-5.9); Red Cell Distribution Width 14.1 % (11.6-14.8); White Blood Cell Count 10.7 X10^3/uL (4.5-11.0)
[2024-01-10 20:13] LABS: Alanine Aminotransferase 32 IU/L (<50); Albumin Globulin Ratio 1.7 (1.0-2.8); Alkaline Phosphatase 99 U/L (38-126); Aspartate Aminotransferase 24 IU/L (17-59); BUN Creatinine Ratio 22.4 (6-22); Bilirubin Total 0.9 mg/dL (0.2-1.3); Blood Urea Nitrogen 19 mg/dL (9-20); Calcium 9.7 mg/dL (8.4-10.2); Carbon Dioxide 26 mmol/L (22-32); Chloride 106 mmol/L (98-107); Estimated Glomerular Filt Rate > 60 mL/min (>60); Globulin 2.9 g/dL (1.7-4.1); Glucose 96 mg/dL (70-100); HEMOLYSIS < 15 (0-50); Lipase 268 U/L (23-300); Potassium 4.2 mmol/L (3.4-5.1); Sodium 138 mmol/L (137-145); Total Protein 7.9 g/dL (6.3-8.2)
--- NOTE | 2024-01-10 23:00 | DI.CT.S_ITS ---
PROCEDURE: CT ABDOMEN PELVIS WO CON INDICATIONS: left flank pain TECHNIQUE: Axial sections were acquired from the lung bases to the pubic symphysis. Coronal and sagittal reformats were performed. For radiation dose reduction, the following was used: automated exposure control, adjustment of mA and/or kV according to patient size. COMPARISON: [facility], CT, CT ABDOMEN PELVIS W CON, 08/03/2023, 9:22. FINDINGS: Image quality: Diagnostic Lower chest: Bibasilar atelectasis. Partially seen cardiac electrode leads. Liver: Solid organs are not well assessed without IV contrast. No contour deforming mass Gallbladder and biliary system: Absent, Nondilated Pancreas: No ductal dilation Spleen: Nonenlarged Adrenals: No discrete nodules Kidneys: There are multiple nonobstructing renal stones measuring under 5 mm. No hydronephrosis or obstructing stones identified. Vessels and lymph nodes: No abdominal aortic aneurysm. No pathologic lymph nodes by size criteria. Atherosclerotic calcifications Bowel and peritoneum: Mild gastric distention. No small bowel obstruction. Trace pelvic free fluid is seen. There are few colonic diverticula. Focal moderate fat stranding is seen around the region of sigmoid colon. The appendix is not seen. Body wall: Small fat containing umbilical hernia Pelvis: Bladder is under distended and unremarkable. The prostate is not well evaluated on this study Bones: No acute or suspicious osseous finding. There are degenerative changes. Thoracolumbar fusion hardware. L5 pars defects with anterolisthesis again seen. There are other vertebral endplate deformities, likely nonacute. IMPRESSION: No obstructing renal stones or hydronephrosis. Multiple nonobstructing stones are seen in the kidneys, under 5 mm. Moderate focal fat stranding around the sigmoid colon, likely focal colitis versus diverticulitis. Other findings above. Dictated by: Herson Richter M.D. on 01/10/2024 at 23:31 Approved by: Herson Richter M.D. on 01/10/2024 at 23:36
--- NOTE | 2024-01-10 23:52 | ED_ITS ---
HPI - Abdominal Pain General Chief Complaint: Abdominal Pain Stated Complaint: Kidney Stone Time Seen by Provider: 01/10/24 22:59 Source: patient Mode of arrival: Ambulatory Limitations: altered mental status History of Present Illness HPI narrative: 48-year-old male with history of kidney stones, has atraumatic left lower quadrant abdominal pain since this morning, persistent, no flank pain. No fevers or chills. No nausea or vomiting. No diarrhea. No black or red stools. No history of diverticulitis or colitis recalled. [place] somewhat similar to previous left-sided kidney stone pain. No response to [id number] pain medications. Related Data Previous Rx's Medication Instructions Recorded ondansetron 4 mg disintegrating 4 mg PO Q8H PRN nausea and 08/03/23 tablet vomiting #30 tabs hydrocodone 5 mg-acetaminophen 325 1 tab PO Q8H PRN pain #10 tabs 08/11/23 mg tablet amoxicillin 875 mg-potassium 1 tab PO BID #20 tabs 01/11/24 clavulanate 125 mg tablet Allergies Allergy/AdvReac Type Severity Reaction Status Date / Time No Known Drug Allergies Allergy Verified 01/10/24 19:44 Review of Systems Review of Systems Narrative: Per HPI Patient History Medical History History of COVID-19 (2021) Hypertrophic obstructive cardiomyopathy (HOCM) Pacemaker (06/26/23) Kidney stones Sleep apnea GERD (gastroesophageal reflux disease) Anxiety Depression Surgical History Hx laparoscopic cholecystectomy H/O vasectomy (2002) Hx of appendectomy (2002) History of tonsillectomy (2002) Social History marital status: household members: spouse Smoking Status: Former smoker alcohol intake: current Smoking Status: Former smoker tobacco type: cigarettes alcohol intake frequency: holidays/special occasions only Alcohol type: hard liquor Substance Use Type: marijuana Exam Narrative Exam Narrative: GENERAL: Well-developed patient, in mild distress. HEAD: Atraumatic. Normocephalic. EYES: Pupils equal round and reactive. Extraocular motions intact. No scleral icterus. No injection or drainage. ENT: Nose without bleeding, purulent drainage. Throat without erythema, tonsillar hypertrophy or exudate. Airway patent. NECK: Trachea midline. Non tender CARDIOVASCULAR: Regular rate and rhythm without murmurs, gallops, or rubs. RESPIRATORY: Clear to auscultation. Breath sounds equal bilaterally. No wheezes, rales, or rhonchi. GASTROINTESTINAL: Left lower quadrant abdominal tenderness, no obvious groin or other ventral hernia, no guarding or rebound, nondistended, no obvious fluid wave EXTREMITIES: No edema or joint tenderness. BACK: Nontender without deformity or crepitance. No flank tenderness. NEURO: AOx3. SKIN: No rash or erythema of visible areas Initial Vital Signs Initial Vital Signs: Vital Signs Temperature 98.6 F 01/10/24 19:44 Pulse Rate 73 01/10/24 19:44 Respiratory Rate 18 01/10/24 19:44 Blood Pressure 153/96 H 01/10/24 19:44 Pulse Oximetry 98 01/10/24 19:44 Oxygen Delivery Method Room Air 01/10/24 19:44 Course Orders Ordered: Discontinued Medications Ketorolac Tromethamine (Ketorolac 30 Mg/Ml Vial) 15 mg IV NOW ONE Stop: 01/11/24 00:05 Last Admin: 01/11/24 00:31 Dose: 15 mg Documented By: GC Ondansetron HCl (Ondansetron 4 Mg/2 Ml Inj) 4 mg IV NOW PRN PRN Reason: Nausea And Vomiting Ondansetron HCl (Ondansetron 4 Mg Odt) 4 mg PO NOW PRN PRN Reason: Nausea And Vomiting Tramadol HCl (Tramadol 50 Mg Prepack) 1 bottle MISC DIRECTED ONE Stop: 01/11/24 00:13 Vital Signs Vital signs: Vital Signs - 8 hr 01/11/24 00:53 Temperature 98 F Pulse Rate 84 Respiratory Rate 18 Blood Pressure 144/82 H Pulse Oximetry 97 Oxygen Delivery Method Room Air MDM - Abdominal Pain Lab Data Attestation: I reviewed the patient's lab results. Lab results narrative: White blood cell count normal, urinalysis negative, LFTs lipase normal 01/10/24 19:33 01/10/24 19:33 Labs: Lab Results 01/10/24 Range/Units 19:33 WBC 10.7 (4.5-11.0) X10^3/uL RBC 5.33 (4.5-5.9) X10^6/uL Hgb 15.9 (13.5-17.5) g/dL Hct 46.6 (41-53) % MCV 87.5 (80-100) fL MCH 29.9 (26-34) PG MCHC 34.2 (30-36) % RDW 14.1 (11.6-14.8) % Plt Count 249 (150-400) X10^3/uL Neut % (Auto) 65.0 (50-75) % Lymph % (Auto) 25.7 (25-40) % [place] % (Auto) 7.2 (3-14) % Eos % (Auto) 1.7 L (2-4) % Baso % (Auto) 0.4 (0-2) % Neut # (Auto) 7000 (3065-9098) /uL Lymph # (Auto) 2800 (4647-5137) /uL [place] # (Auto) 800 (0-900) /uL Eos # (Auto) 200 (0-450) /uL Baso # (Auto) 0 (0-100) /uL Sodium 138 (137-145) mmol/L Potassium 4.2 (3.4-5.1) mmol/L Chloride 106 (98-107) mmol/L Carbon Dioxide 26 (22-32) mmol/L BUN 19 (9-20) mg/dL Creatinine 0.85 (0.66-1.25) mg/dL Estimated GFR > 60 (>60) mL/min BUN/Creatinine Ratio 22.4 H (6-22) Glucose 96 (70-100) mg/dL Calcium 9.7 (8.4-10.2) mg/dL Total Bilirubin 0.9 (0.2-1.3) mg/dL AST 24 (17-59) IU/L ALT 32 (<50) IU/L Alkaline Phosphatase 99 (38-126) U/L Total Protein 7.9 (6.3-8.2) g/dL Albumin 5.0 (3.5-5.0) g/dL Globulin 2.9 (1.7-4.1) g/dL Albumin/Globulin Ratio 1.7 (1.0-2.8) Lipase 268 (23-300) U/L Point of care testing: Urine Dip Bedside Urine Glucose Negative Bedside Urine Bilirubin - Negative Bedside Urine Ketone - Negative Urine Specific [place] 1.010 Bedside Urine Occult Blood - Negative Bedside Urine pH 6.0 Bedside Urine Protein - Negative Bedside Urine Urobilinogen 1+ 2mg Bedside Urine Nitrite - Negative Bedside Urine Leukocytes - Negative Esterase MDM Narrative Medical decision making narrative: 48-year-old male with history of kidney stones, left lower quadrant abdominal pain, no flank pain, somewhat similar symptoms to previous kidney stones. Tenderness on exam however left lower quadrant, could be due to passage of ureteral stone but consider also possible diverticulitis, colitis, hernia, other. Consider imaging, labs pending. GFR favorable, CT abdomen and pelvis imaging ordered. IV Toradol CT abdomen and pelvis without contrast. Impressions: ?No obstructing renal stones or hydronephrosis. Multiple nonobstructing stones are seen in the kidneys under 5 mm. Moderate focal fat stranding around the sigmoid colon, likely focal colitis versus diverticulitis. Other findings above. ? Radiology report IV Unasyn, discharge on oral Augmentin antibiotic Critical Care Time Critical Care Time Critical Care Time: Yes Total Critical Care Time: 31 Attestation: The high probability of a clinically significant, sudden or life threatening deterioration of the [gastrointestinal, abdominopelvic] system(s) required my full and direct attention, intervention and personal management. The aggregate critical care time was [31] minutes. This time is in addition to time spent performing reported procedures but includes the following: [x] Data Review and interpretation [x] Patient assessment and monitoring of vital signs [x] Documentation [x] Medication orders and management Discharge Plan Departure Patient Disposition: Home Clinical Impression: Abdominal pain, Diverticulitis, Kidney calculi Instructions: DI for Diverticulitis Activity Restrictions/Additional Instructions: Left lower quadrant abdominal discomfort, history of kidney stones, felt somewhat similar, some tenderness on exam left lower quadrant, this can be present with passage of a stone but might represent other problems. Screening labs unremarkable, urinalysis negative. CT abdomen and pelvis performed and did show the presence of multiple stones that were in the kidneys, but that were not obstructing at this time, and none were in the ureter that you would expect if that were the cause of your pain. CT scan also showed sigmoid left lower quadrant area inflammation, consistent with diverticulitis, that might be the likely cause of your symptoms. IV antibiotic initiated. Take oral Augmentin antibiotic for 10 day course. Recheck symptoms with your regular doctor in the next couple of days. Return to this/nearest emergency department for any change worsening symptoms or any concerns prior Prescriptions: New amoxicillin-pot clavulanate 875-125 mg tablet 1 tab PO BID Qty: 20 0RF No Action ondansetron 4 mg tablet,disintegrating 4 mg PO Q8H PRN (Reason: nausea and vomiting) Qty: 30 0RF hydrocodone-acetaminophen 5-325 mg tablet 1 tab PO Q8H PRN (Reason: pain) Qty: 10 0RF Referrals: Nigel Limon MD [Primary Care Provider] - Stand Alone Forms: Patient Portal/API
[2024-01-11 00:01] VITALS: BP 145/78; PULSE 85; RESP 18; TEMP 36.9; O2SAT 98
[2024-01-11] MEDS: KETOROLAC 30 MG/ML VIAL 15 MG IV (00:31)
[2024-01-11 00:53] VITALS: BP 144/82; PULSE 84; RESP 18; TEMP 36.6; O2SAT 97
== END 2024-01-11 00:53 | disposition home or self-care (01) ==
PROVIDERS: Emergency Provider Emergency Medicine; PCP Family Medicine
DX: K57.92 Diverticulitis of intestine, part unspecified, without perforation or abscess without bleeding (principal); N20.0 Calculus of kidney; R10.32 Left lower quadrant pain
CPT/HCPCS: 74176; 80053; 81003; 83690; 85025; 96374; 99283; 99284; J1885